=== PATIENT | female | born 1955 | race Caucasian/White ===

== ENCOUNTER → 2019-08-27 08:12 | Outpatient (BNVA) | payer MEDICARE, SELFPAY | PROVIDERS: Visit Provider Nurse Practitioner Psychiatric/Mental Health | DX: F41.1 Generalized anxiety disorder (principal); F31.74 Bipolar disorder, in full remission, most recent episode manic; F17.210 Nicotine dependence, cigarettes, uncomplicated | CPT/HCPCS: 99213 ==

== ENCOUNTER → 2020-01-29 08:36 | Outpatient (BNVA) | payer MEDICARE, SELFPAY | PROVIDERS: Visit Provider Nurse Practitioner Psychiatric/Mental Health | DX: F41.1 Generalized anxiety disorder (principal); F31.74 Bipolar disorder, in full remission, most recent episode manic; F17.210 Nicotine dependence, cigarettes, uncomplicated | CPT/HCPCS: 99213 ==

== ENCOUNTER → 2020-07-23 08:03 | Outpatient (BNVA) | payer MEDICARE, SELFPAY | PROVIDERS: Visit Provider Nurse Practitioner Psychiatric/Mental Health | DX: Z79.899 Other long term (current) drug therapy (principal); F41.1 Generalized anxiety disorder; F31.74 Bipolar disorder, in full remission, most recent episode manic; F17.210 Nicotine dependence, cigarettes, uncomplicated | CPT/HCPCS: 99214 ==

== ENCOUNTER 2020-12-18 08:44 | Outpatient (CLI) | payer MEDICARE, SELFPAY ==
[2020-12-18 09:36] LABS: Chol HDL Ratio 3.39 mg/dL (0.0-4.40); Cholesterol 122 mg/dL (0-200); HDL Cholesterol 36 mg/dL (60-100); LDL Cholesterol Calculated 56 mg/dL (50-129); LDL HDL Ratio 1.56 RATIO (0.00-3.22); Triglycerides 152 mg/dL (0-150)
[2020-12-18 09:45] LABS: Estmated Average Glucose 117; Hemoglobin A1C 5.7 % (4.0-6.0)
[2020-12-18 10:01] LABS: Valproic Acid Level 39.8 ug/mL (50-100)
== END 2020-12-18 08:45 | disposition home or self-care (01) ==
LOC: LAB 08:52
PROVIDERS: Visit Provider Nurse Practitioner Psychiatric/Mental Health
DX: Z79.899 Other long term (current) drug therapy (principal)
CPT/HCPCS: 36415; 80061; 80164; 83036

== ENCOUNTER → 2021-01-07 07:18 | Outpatient (BNVA) | payer MEDICARE, SELFPAY | PROVIDERS: Visit Provider Nurse Practitioner Psychiatric/Mental Health | DX: F41.1 Generalized anxiety disorder (principal); F31.74 Bipolar disorder, in full remission, most recent episode manic; F17.210 Nicotine dependence, cigarettes, uncomplicated; Z79.899 Other long term (current) drug therapy | CPT/HCPCS: 99214 ==

== ENCOUNTER 2021-03-31 14:10 | Emergency (ER) | payer MEDICARE, SELFPAY ==
[2021-03-31 14:27] VITALS: BP 162/96; PULSE 64; RESP 18; TEMP 36.4; O2SAT 96; BMI 31.8
[2021-03-31 15:15] VITALS: BP 163/83; PULSE 66; RESP 17; O2SAT 95
--- NOTE | 2021-03-31 15:26 | ED_ITS ---
HPI - General Adult General: Chief complaint: General Medical Stated complaint: HTN,DIZZY,SPINNING,H/A,EAR PAIN,VISION PROBLEM Time Seen by Provider: 03/31/21 14:47 History of Present Illness: HPI narrative: 65-year-old female presents emergency room lightheadedness and dizziness had a syncopal episode on March 28. No chest pain or shortness of breath. Is awake and alert. Denies any chest pain or shortness of breath. She does notice dizziness. She contributed by turning her head particularly to the right. Especially if she sits up and turns her head to the right. She gets a spinning vertiginous-like symptoms that is relieved by laying down and holding still. Onset (ago): day(s) Location: head Severity: mild Relieving factors: none Exacerbating factors: none Associated symptoms: Deny chest pain, confusion, cough, diaphoresis, decreased appetite, dyspnea, fevers/chills, headache(s), malaise, nausea, rash, palpitations, seizures, short of breath, syncope, vomiting or weakness Treatments prior to arrival: none Review of Systems Const: Denies: malaise or diaphoresis ENMT: Denies: throat pain, ear or mastoid pain, nasal discharge or nasal congestion Card: Denies: chest pain, palpitations or syncope Resp: Denies: dyspnea GI: Denies: nausea or vomiting : Denies: flank pain, difficulty voiding, dysuria, urinary frequency or urinary urgency Skin/Breast: Denies: rash Neuro: Denies: headache(s) or confusion [facility] ED PFSH: Medical History Bipolar 1 disorder, manic, full remission Generalized anxiety disorder Nicotine dependence, cigarettes, uncomplicated Physical Exam Const: COMMON NORMALS: no acute distress GENERAL APPEARANCE: cooperative and comfortable ORIENTATION/CONSCIOUSNESS: Yes awake, Yes oriented to person, Yes oriented to place and Yes oriented to time HENMT: COMMON NORMALS: normocephalic, atraumatic and hearing grossly normal bilaterally HEAD & SCALP: normocephalic and atraumatic Neck/C-Spine: COMMON NORMALS: no JVD Resp: COMMON NORMALS: normal respiratory effort, No retractions, No use of accessory muscles and clear to auscultation bilaterally AUSCULTATION: clear to auscultation bilaterally Cardio: COMMON NORMALS: no JVD, regular rate, regular rhythm and No murmurs present (Cardio) RATE: regular rate RHYTHM: regular rhythm GI: COMMON NORMALS: Soft to palpation and No hepatosplenomegaly present AUSCULTATION: Yes normoactive bowel sounds PALPATION: Yes Soft to palpation, No Tenderness to palpation present (GI), No Guarding due to palpation present (GI) and Yes No hepatosplenomegaly present Extremity: COMMON NORMALS: normal to inspection, capillary refill normal, no clubbing, cyanosis or edema, no calf tenderness and no pedal edema Neuro: SENSORIUM/ORIENTATION: Yes oriented to person, Yes oriented to place and Yes oriented to time Skin: COMMON NORMALS: no rashes or lesions noted GENERAL SKIN EXAM: no rashes or lesions noted Course Vital Signs: Vital signs: Vital Signs Temperature 97.6 F 03/31/21 14:27 Pulse Rate 66 03/31/21 16:00 Respiratory Rate 18 03/31/21 16:00 Blood Pressure 161/87 03/31/21 16:00 Pulse Oximetry 95 03/31/21 16:00 MDM - General Adult MDM Narrative: Medical decision making narrative: Reviewed labs with the patientShe has no head trauma point. No focal neurologic deficits noted. At this point head CT is probably not been to be particularly helpful. We will go ahead and treat her symptoms if this persists follow-up with her primary care doctor for worsens or changes in any way return. Lab Data: Labs: Lab Results 03/31/21 03/31/21 15:14 15:14 WBC 8.6 10^3/uL 10^3/ uL (4.0-10.0) RBC 4.31 10^6/uL 10^6 /uL (4.1-5.3) Hgb 13.1 g/dL g/dL (11.5-15.3) Hct 39.4 % % (37.0-47.0) MCV 91.4 fl fl (81-99) MCH 30.4 pg pg (28.0-34.0) MCHC 33.2 g/dL g/dL (30.0-36.0) RDW 13.5 % % (12.1-15.1) Plt Count 323 10^3/cmm 10^3 /cmm (130-400) MPV 10.0 fL fL (7.4-10.4) Neut % (Auto) 52.9 % % Lymph % (Auto) 38.6 % % [place] % (Auto) 5.4 % % Eos % (Auto) 1.9 % % Baso % (Auto) 0.9 % % Neut # (Auto) 4.54 10^3/uL 10^3 /uL (1.8-7.7) Lymph # (Auto) 3.3 10^3/uL 10^3/ uL (0.8-4.8) [place] # (Auto) 0.5 10^3/uL 10^3/ uL (0.2-0.9) Eos # (Auto) 0.2 10^3/uL 10^3/ uL (0.0-0.8) Baso # (Auto) 0.1 10^3/uL 10^3/ uL (0.0-0.1) Nucleated RBC % (a uto) 0 % % Nucleated RBCs # 0.0 /100WBC /100W BC Sodium 139 mmol/L mmol/L (136-145) Potassium 3.0 mmol/L L mmol /L (3.5-5.1) Chloride 100 mmol/L mmol/L (98-107) Carbon Dioxide 29 mmol/L mmol/L (22-29) Anion Gap 13.0 (5-19) BUN 10 mg/dL mg/dL (8-23) Creatinine 0.3 mg/dL L mg/dL (0.5-0.9) GFR Calculation 224.0 mL/min H mL /min (90-130) Glucose 96 mg/dL mg/dL (65-115) Calculated Osmolal ity 287 mOsm/kg mOsm/ kg (285-295) Calcium 8.9 mg/dL mg/dL (8.5-10.5) Total Bilirubin 0.2 mg/dL mg/dL (0.15-1.2) AST 12 U/L U/L (0-32) ALT 17 U/L U/L (0-33) Alkaline Phosphata se 78 IU/L IU/L (35-105) Total Protein 5.9 g/dL L g/dL (6.6-8.7) Albumin 3.7 g/dL g/dL (3.5-5.2) Globulin 2.2 g/dL g/dL (1.3-4.6) Discharge Plan Discharge Patient Disposition: Home Clinical Impression: Benign paroxysmal positional vertigo Condition: Stable Prescriptions: New meclizine 25 mg tablet 25 mg PO QID PRN (Reason: dizziness) Qty: 20 RF: 0 No Action clonazepam [Klonopin] 1 mg tablet 1 mg PO BID Qty: 60 RF: 5 divalproex [Depakote] 500 mg tablet,delayed release (DR/EC) 500 mg PO BID Qty: 180 RF: 2 sertraline [Zoloft] 25 mg tablet 25 mg PO BID Qty: 180 RF: 2 folic acid 1 mg tablet 1 mg PO BEDTIME RF: 0 methotrexate sodium 2.5 mg tablet 2.5 mg PO .ON MON,WED,FRI RF: 0 atorvastatin 20 mg tablet 20 mg PO QPM RF: 0 Flexeril 10 mg Tablet 10 mg PO TID PRN (Reason: Muscle Spasm) RF: 0 enalapril-hydrochlorothiazide 10-25 mg Tablet 1 tab PO QAM RF: 0 metoprolol tartrate 50 mg Tablet 50 mg PO BID RF: 0 ibuprofen 200 mg Tablet 600 mg PO Q4H PRN (Reason: Pain) RF: 0 albuterol sulfate 90 mcg/actuation Hfa Aerosol Inhaler 2 puff INHALATION Q4H PRN (Reason: Shortness Of Breath) RF: 0 Risperdal 0.5 mg tablet 0.5 mg PO BEDTIME RF: 0 Discharge Orders: Discharge ED (Routine); Ordered 03/31/21 Ordered By: Pieter Frank Referrals: Shae Liu FNP [Primary Care Provider] - Discharge Diet: Usual diet Discharge Activity: Increase activity as tolerated Patient Instructions: Opioid Safety Coding Level of Care Code ED Property Maintenance Technician for Chg Fwd Exam Comprehensive
--- NOTE | 2021-03-31 15:29 | ECG_ITS ---
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 Measurements Intervals [place] Rate: 71 P: 79 OR: 155 QRS: 18 QRSD: 89 T: 70 QT: 416 QTc: 453 Interpretive Statements SINUS RHYTHM Compared to ECG 03/01/2016 00:50:48 No significant changes Electronically Signed On 03-31-2021 21:56:54 CDT by Cele Muller M.D. [id number]
[2021-03-31 15:36] LABS: Basophils # 0.1 10^3/uL (0.0-0.1); Basophils % 0.9 %; Eosinophils # 0.2 10^3/uL (0.0-0.8); Eosinophils % 1.9 %; Hematocrit 39.4 % (37.0-47.0); Hemoglobin 13.1 g/dL (11.5-15.3); Lymphocytes # 3.3 10^3/uL (0.8-4.8); Lymphocytes % 38.6 %; Mean Corpuscular HGB Conc 33.2 g/dL (30.0-36.0); Mean Corpuscular Hemoglobin 30.4 pg (28.0-34.0); Mean Corpuscular Volume 91.4 fl (81-99); Monocytes # 0.5 10^3/uL (0.2-0.9); Monocytes % 5.4 %; Neutrophils # 4.54 10^3/uL (1.8-7.7); Neutrophils % 52.9 %; Nucleated Red Blood Cells % 0 %; Platelet Count 323 10^3/cmm (130-400); Red Blood Count 4.31 10^6/uL (4.1-5.3); Red Cell Distribution Width 13.5 % (12.1-15.1); White Blood Count 8.6 10^3/uL (4.0-10.0)
[2021-03-31 15:47] VITALS: BP 154/91; BP 156/92; BP 161/88; PULSE 61; PULSE 71; PULSE 75
[2021-03-31 16:00] VITALS: BP 161/87; PULSE 66; RESP 18; O2SAT 95
[2021-03-31 16:00] LABS: Alanine Aminotransferase 17 U/L (0-33); Albumin Level 3.7 g/dL (3.5-5.2); Alkaline Phosphatase 78 IU/L (35-105); Aspartate Amino Transferase 12 U/L (0-32); Blood Urea Nitrogen 10 mg/dL (8-23); Calcium 8.9 mg/dL (8.5-10.5); Carbon Dioxide 29 mmol/L (22-29); Chloride 100 mmol/L (98-107); Globulin 2.2 g/dL (1.3-4.6); Glucose 96 mg/dL (65-115); Osmolality Calculated 287 mOsm/kg (285-295); Sodium 139 mmol/L (136-145); Total Bilirubin 0.2 mg/dL (0.15-1.2); Total Protein 5.9 g/dL (6.6-8.7)
== END 2021-03-31 16:35 | disposition home or self-care (01) ==
PROVIDERS: Emergency Provider Family Medicine; PCP Nurse Practitioner Family
DX: H81.10 Benign paroxysmal vertigo, unspecified ear (principal)
CPT/HCPCS: 80053; 85025; 93005; 99283

== ENCOUNTER 2021-05-25 14:11 | Outpatient (CLI) | payer MEDICARE, SELFPAY ==
--- NOTE | 2021-05-25 14:27 | MM_ITS ---
WS: [id number] BILATERAL DIGITAL SCREENING MAMMOGRAPHY WITH CAD CLINICAL INFORMATION: SCREEN HISTORY: Screening mammogram. No current complaints. COMPARISON: TECHNIQUE: Bilateral CC and MLO views. FINDINGS: Scattered fibroglandular densities bilaterally. No suspicious focal mass, asymmetry, calcifications, or architectural distortion. No evidence of malignancy. Lucent centered calcification right breast. MM/[place] [id number] IMPRESSION: BI-RADS: 2-Benign FOLLOW UP: 1 Year Follow-up Recommend return to annual screening mammography.
--- NOTE | 2021-05-25 14:54 | XR_ITS ---
WS: [id number] Bone mineral density performed on a [employer], 05/25/2021. Clinical data: POST MENOPAUSAL COMPARISON STUDY: None. Findings: The first 4 lumbar vertebral bodies demonstrated the bone mineral density of 1.538 g/cm2 for a young adult T score of 3.0. Measurement of the left hip reveals a bone mineral density of 1.080 g/cm2 with a young adult T score of 0.6. Measurement of the right hip reveals the bone mineral density of 1.086 g/cm2 for young adult T score of 0.6. XR/XR DEXA axial skeleton* [id number] Impression: Normal bone mineral density of the lumbar spine and both hips.
== END 2021-05-25 14:12 | disposition home or self-care (01) ==
LOC: RADSHAW 14:15
PROVIDERS: PCP Nurse Practitioner Family; Visit Provider Nurse Practitioner Family
DX: Z12.31 Encounter for screening mammogram for malignant neoplasm of breast (principal); Z78.0 Asymptomatic menopausal state
CPT/HCPCS: 77067; 77080

== ENCOUNTER → 2021-07-08 13:15 | Outpatient (BNVA) | payer MEDICARE, SELFPAY | PROVIDERS: PCP Nurse Practitioner Family; Referring Provider Nurse Practitioner Family; Visit Provider Specialist | DX: M17.11 Unilateral primary osteoarthritis, right knee (principal); M25.561 Pain in right knee | CPT/HCPCS: 73560; 73565 ==

== ENCOUNTER → 2021-07-20 07:51 | Outpatient (BNVA) | payer MEDICARE, SELFPAY | PROVIDERS: PCP Nurse Practitioner Family; Visit Provider Nurse Practitioner Psychiatric/Mental Health | DX: F41.1 Generalized anxiety disorder (principal); F31.74 Bipolar disorder, in full remission, most recent episode manic; F17.210 Nicotine dependence, cigarettes, uncomplicated | CPT/HCPCS: 99214 ==

== ENCOUNTER 2021-07-27 13:04 | Outpatient (CLI) | payer MEDICARE, SELFPAY ==
--- NOTE | 2021-07-27 13:20 | CT_ITS ---
WS: [id number] CT HEAD NONCONTRAST HISTORY: HEADACHE TECHNIQUE: Contiguous axial imaging performed through the brain in 2.5 mm imaging. Bone and soft tiss ue windows. Sagittal and coronal reformats reviewed. All CT scans at [facility] use at least one of these dose optimization techniques: automated exposure control; mA and/or kV adjustment per pa tient size (includes targeted exams where dose is matched to clinical indication); or iterative recon struction. DLP: 1080.98 mGy.cm COMPARISON: None available. No acute intracranial hemorrhage, midline shift or mass effect. Mild atrophy and mild chronic microvascular ischemic changes. No prior infarct. There is also mild ce rebellar atrophy. Ventricles: Normal size with no hydrocephalus. No inferior displacement of cerebellar tonsils. Paranasal sinuses: As visualized are clear. Mastoid air cells: Well pneumatized. Calvarium and scalp: Skull is intact with no soft tissue edema or swelling. CT/CT head wo con* [id number] IMPRESSION: 1. No acute intracranial hemorrhage or edema. 2. Mild cerebral and cerebellar atrophy and chronic ischemic disease.
== END 2021-07-27 13:05 | disposition home or self-care (01) ==
LOC: RAD 13:07
PROVIDERS: PCP Nurse Practitioner Family; Visit Provider Nurse Practitioner Family
DX: R51.9 Headache, unspecified (principal); I67.82 Cerebral ischemia; G31.9 Degenerative disease of nervous system, unspecified
CPT/HCPCS: 70450

== ENCOUNTER 2021-08-21 12:24 | Outpatient (CLI) | payer MEDICARE, SELFPAY ==
--- NOTE | 2021-08-21 13:00 | MR_ITS ---
WS: [id number] MRI RIGHT KNEE HISTORY: M25.569 - Pain in unspecified knee, pain near patella. COMPARISON: 07/08/2021 Anterior cruciate ligament: There is a split -like pattern of the ACL with a 6.4 mm calcific deposit in the central portion of the ACL. The anterior fibers are appear intact but the posterior fibers may not be completely intact as there is a flattened orientation of the fibers. Posterior cruciate ligament: Intact. Medial collateral ligament: Small amount of fluid adjacent to the MCL but no tear. Posterior lateral corner structures: Intact. Medial menisci: Intact. Normal signal, size and shape. Lateral meniscus: Intact. Normal signal, size and shape. Extensor mechanism: Distal quadriceps tendon and patellar tendons are intact. Fluid and soft tissue: Small suprapatellar effusion. There is diffuse mild soft tissue edema around t he knee. There is a very tiny amount of fluid in the expected location of Moreno's cyst. There is an a dditional bursal collection containing loose bodies associated with the fibular head. This collection measures 2.5 x 1.2 cm and is situated between the popliteus and soleus muscles. Osseous and articular structures: Patellofemoral compartment: Mild to moderate narrowing of the lateral patellofemoral joint space with loss of cartilage involving both the medial and lateral facet. No fracture or marrow edema. Patellar retinaculum intact. Medial compartment: Mild narrowing of the medial compartment with loss of cartilage and small margina l osteophytes. Lateral compartment: Mild narrowing of the lateral compartment with loss of cartilage and marginal os teophytes. There is a small amount of edema along the lateral tibial plateau. There is also small den unt of subchondral edema involving a superficial portion of the lateral femoral condyle. There are small loose bodies posterior to the PCL but there is also a small cyst or ganglion associat ed with the posterior PCL. MR/MR knee RT wo con* [id number] IMPRESSION: 1. Tricompartment mild to moderate internal derangement with loss of cartilage and joint space and osteophyte formation. 2. Abnormal ACL. Embedded within the central portion of the ACL but it appears to be a calcific density causing splitting of the ligament. The posterior fibe rs may no longer be intact. 3. Bursal distention containing multiple loose bodies associated with the femo ral head. This collection is between the popliteus muscle and the soleus. 4. Mild diffuse soft tissue edema small joint effusion. 5. Multiple small loose bodies posterior to the ACL with an adjacent small flu id collection or ganglion.
== END 2021-08-21 12:25 | disposition home or self-care (01) ==
LOC: RAD 12:28
PROVIDERS: PCP Nurse Practitioner Family; Visit Provider Specialist
DX: R60.0 Localized edema (principal); M25.461 Effusion, right knee
CPT/HCPCS: 73721

== ENCOUNTER → 2021-10-13 12:27 | Outpatient (BNVA) | payer MEDICARE, SELFPAY | PROVIDERS: PCP Nurse Practitioner Family; Visit Provider Nurse Practitioner Psychiatric/Mental Health | DX: F41.1 Generalized anxiety disorder (principal); F31.74 Bipolar disorder, in full remission, most recent episode manic; F17.210 Nicotine dependence, cigarettes, uncomplicated; Z79.899 Other long term (current) drug therapy | CPT/HCPCS: 99214 ==

== ENCOUNTER → 2021-10-19 14:46 | Outpatient (BNVA) | payer MEDICARE, SELFPAY | PROVIDERS: PCP Nurse Practitioner Family; Visit Provider Specialist | DX: M17.11 Unilateral primary osteoarthritis, right knee (principal) | CPT/HCPCS: 99213 ==

== ENCOUNTER → 2022-05-05 12:39 | Outpatient (BNVA) | payer MEDICARE, SELFPAY | PROVIDERS: PCP Nurse Practitioner Family; Visit Provider Internal Medicine | DX: M25.9 Joint disorder, unspecified (principal); M79.643 Pain in unspecified hand; Z11.59 Encounter for screening for other viral diseases; Z11.1 Encounter for screening for respiratory tuberculosis; M45.0 Ankylosing spondylitis of multiple sites in spine | CPT/HCPCS: 72040; 73030; 73120; 73620; 80053; 85025; 85651; 86140; 86480; 86704; 86803; 86812; 87340; 99204 ==

== ENCOUNTER 2022-05-18 14:06 | Outpatient (CLI) | payer MEDICARE, SELFPAY ==
--- NOTE | 2022-05-18 14:18 | MR_ITS ---
WS: [email or web address] MRI LEFT SHOULDER NONCONTRAST TECHNIQUE: Sagittal T2, coronal T1, T2 and proton density imaging. Axial gradient PDE imaging. CLINICAL INFORMATION: PAIN OF L SHOULDER REGION COMPARISON: None. FINDINGS: Moderate degenerative arthritis AC joint with mild downsloping acromion. Subacromial spurring. Small amount of subacromial/subdeltoid fluid. Mild edema at the AC joint. Impingement on the distal suprasp inatus. Mild narrowing of the subacromial space. Mild chronic thinning of the supraspinatus tendon. Tendinopathy in the distal supraspinatus. Tiny int rasubstance bursal surface tear just distal to the acromion. No full-thickness tears. Normal infraspinatus. Normal teres minor. Normal subscapularis. Normal biceps tendon in the bicipital groove. Normal glenoid labrum. Normal biceps labral anchor. MR/MR shoulder LT wo con* [id number] IMPRESSION: 1. Moderate degenerative arthritis at the AC joint with mild downsloping of th e acromion. Impingement on the distal supraspinatus. Small subcoracoid and subd eltoid effusion. 2. Mild chronic thinning of the distal supraspinatus with tendinopathy and sma ll bursal surface tear. No full-thickness tears. 3. Normal infraspinatus. Normal teres minor. Normal subscapularis. 4. Normal biceps tendon in the bicipital groove. 5. Normal biceps labral anchor.
== END 2022-05-18 14:07 | disposition home or self-care (01) ==
LOC: RAD 14:07
PROVIDERS: PCP Nurse Practitioner Family; Visit Provider Nurse Practitioner Family
DX: M25.512 Pain in left shoulder (principal); M19.012 Primary osteoarthritis, left shoulder
CPT/HCPCS: 73221

== ENCOUNTER → 2022-06-14 11:06 | Outpatient (BNVA) | payer MEDICARE, SELFPAY | PROVIDERS: PCP Nurse Practitioner Family; Visit Provider Specialist | DX: M19.012 Primary osteoarthritis, left shoulder (principal); M25.812 Other specified joint disorders, left shoulder; S49.92XA Unspecified injury of left shoulder and upper arm, initial encounter; W19.XXXA Unspecified fall, initial encounter | CPT/HCPCS: 20610; 73030; 99214 ==

== ENCOUNTER 2022-06-16 09:05 | Outpatient (CLI) | payer MEDICARE, SELFPAY ==
--- NOTE | 2022-06-16 09:30 | MR_ITS ---
WS: [id number] MRI CERVICAL SPINE NONCONTRAST TECHNIQUE: Sagittal T1, T2 and STIR imaging. Axial T2, gradient, and fiesta imaging. CLINICAL INFORMATION: NECK PAIN COMPARISON: MRI 2 018 FINDINGS: Mild cervical curve. Prior postoperative changes ACDF C5-C6. No high-grade central canal stenosis. Co rd signal is normal. Mild disc bulging with a tiny central protrusion C6-C7. Tiny disc protrusions in the upper thoracic spine at T1-T2, T2-T3, and T4-T5 C2-C3: Mild facet arthropathy. Mild RIGHT and no significant LEFT foraminal narrowing. Spinal canal i s patent. C3-C4: Mild disc bulging. Moderate facet arthropathy worse in the RIGHT. Mild to moderate RIGHT and n o significant LEFT foraminal narrowing. Spinal canal is patent. C4-C5: No significant disc bulging. Moderate facet arthropathy. Mild to moderate RIGHT and no signifi cant LEFT foraminal narrowing. Spinal canal is patent. C5-C6: Postoperative changes ACDF. Moderate bilateral bony foraminal narrowing RIGHT greater than LEF T. Spinal canal is patent. Moderate facet arthropathy. Spinal canal is patent. C6-C7: Shallow central disc protrusion. Slight effacement of ventral thecal sac. Moderate LEFT and no significant RIGHT foraminal narrowing. Mild facet arthropathy. Spinal canal is patent. C7-T1: No significant disc bulging. Spinal canal and foramen are patent. Visualized brain stem structures: Normal. Prevertebral soft tissues: Normal. MR/MR cervical spin wo con* [id number] IMPRESSION: 1. Mild cervical curve. No high-grade central canal narrowing. Cord signal is normal. 2. Prior postoperative changes ACDF C5-C6 appears stable from previous. 3. Shallow central protrusion C6-C7 with slight effacement of ventral thecal s ac. 4. Moderate bony foraminal narrowing RIGHT C3-C4, RIGHT C4-C5, bilateral C5-C6 and LEFT C6-C7. 5. Overall no significant changes compared to the prior MRI.
== END 2022-06-16 09:06 | disposition home or self-care (01) ==
LOC: RAD 09:11
PROVIDERS: PCP Nurse Practitioner Family; Visit Provider Nurse Practitioner Family
DX: M50.223 Other cervical disc displacement at C6-C7 level (principal)
CPT/HCPCS: 72141

== ENCOUNTER 2022-07-19 15:35 | Emergency (ER) | payer MEDICARE, SELFPAY ==
[2022-07-19] VITALS (7 sets, daily range): BP systolic 147–190; BP diastolic 65–103; PULSE 67–77; RESP 16–22; TEMP 36.6; O2SAT 94–97
--- NOTE | 2022-07-19 16:18 | PC.NURSE ---
WHILE IN LOBBY WITH PT. PT IS SITTING IN LOBBY IN NAD.
--- NOTE | 2022-07-19 16:42 | XRR_ITS ---
PROCEDURE INFORMATION: Exam: XR Chest Exam date and time: 07/19/2022 5:00 PM Age: 67 years old Clinical indication: Shortness of breath; Additional info: Chest pain TECHNIQUE: Imaging protocol: Radiologic exam of the chest. Views: 1 view. COMPARISON: CR XR chest 1V [id number] 02/29/2016 9:34 PM FINDINGS: Lungs: Lungs are clear bilaterally. Pleural spaces: No pleural effusion. No pneumothorax. Heart/Mediastinum: The cardiac silhouette and mediastinal contours are unremarkable. Bones/joints: Postsurgical changes consistent with previous spine fusion C6-C7. Degenerative changes in the spine and shoulders. XR/XR chest 1V portable [id number] IMPRESSION: 1. No acute cardiopulmonary process. 2. Incidental/nonacute findings are listed in the report.
[2022-07-19] MEDS: aspirin 81 mg Chew Tablet 324 MG PO (16:51)
--- NOTE | 2022-07-19 17:06 | ECG_ITS ---
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 Measurements Intervals [place] Rate: 60 P: 76 SD: 150 QRS: 21 QRSD: 88 T: 30 QT: 427 QTc: 429 Interpretive Statements SINUS RHYTHM MODERATE ST DEPRESSION [0.05+ mV ST DEPRESSION] Compared to ECG 03/31/2021 15:05:13 ST (T wave) deviation now present Electronically Signed On 07-19-2022 19:11:15 INSIGHT DIRECTOR by Matilde Moore M.D. [id number]
--- NOTE | 2022-07-19 17:22 | ED_ITS ---
Documented by User: Pieter Frank DO 07/21/22 14:13 HPI - Chest Pain General: Chief Complaint: Chest Pain Stated Complaint: high bp/chest/abd pain Time Seen by Provider: 07/19/22 16:28 Source: patient Mode of arrival: ambulatory History of Present Illness: . 67-year-old female presents emergency room with complaints of chest pain and elevated blood pressure. She is also reporting she had some abdominal and chest pain earlier that is resolved. She just generally does not feel well. Blood pressure moderately elevated on arrival here she denies any fever sweats chills or productive cough. No weakness in extremities no loss of vision difficulty swallowing noted dizziness nausea or vomiting. MD complaint: chest pain Onset (ago): hour(s) Timing of current episode: episodic Onset: during rest Quality: tightness Relieving factors: nothing Exacerbating factors: nothing Associated symptoms: Reports abdominal pain; Deny diaphoresis, dyspnea, fever(s), leg edema, nausea, palpitations, sense of impending doom, syncope or vomiting Review of Systems Const: Denies: fever(s), chills, fatigue, malaise or diaphoresis ENMT: Denies: throat pain, ear or mastoid pain, nasal discharge or nasal congestion Card: Reports: chest pain; Denies: palpitations or syncope Resp: Denies: dyspnea GI: Reports: abdominal pain; Denies: nausea or vomiting : Denies: flank pain, difficulty voiding, dysuria, urinary frequency or urinary urgency Skin/Breast: Denies: rash or pruritus PFSH ED PFSH: Medical History Bipolar 1 disorder, manic, full remission Generalized anxiety disorder Hand pain Nicotine dependence, cigarettes, uncomplicated Social History Smoking and tobacco status: current every day smoker cigarettes Packs smoked p er day: 0.5 Quit status (tobacco): has tried quititng Physical Exam Const: COMMON NORMALS: no acute distress GENERAL APPEARANCE: cooperative and comfortable ORIENTATION/CONSCIOUSNESS: Yes awake, Yes oriented to person, Yes oriented to place and Yes oriented to time HENMT: COMMON NORMALS: normocephalic, atraumatic and hearing grossly normal bilaterally HEAD & SCALP: normocephalic and atraumatic Resp: COMMON NORMALS: normal respiratory effort, No retractions, No use of accessory muscles and clear to auscultation bilaterally AUSCULTATION: clear to auscultation bilaterally Cardio: COMMON NORMALS: regular rate, regular rhythm and No murmurs present (Cardio) RATE: regular rate RHYTHM: regular rhythm GI: COMMON NORMALS: Soft to palpation and No hepatosplenomegaly present AUSCULTATION: Yes normoactive bowel sounds PALPATION: Yes Soft to palpation, No Tenderness to palpation present (GI), No Guarding due to palpation present (GI) and Yes No hepatosplenomegaly present Extremity: COMMON NORMALS: normal to inspection, capillary refill normal, no clubbing, cyanosis or edema, no calf tenderness and no pedal edema Neuro: SENSORIUM/ORIENTATION: Yes oriented to person, Yes oriented to place and Yes oriented to time Skin: COMMON NORMALS: no rashes or lesions noted GENERAL SKIN EXAM: no rashes or lesions noted Course Vital Signs: Vital signs: Vital Signs Temperature 97.8 F 07/19/22 15:38 Pulse Rate 73 07/19/22 20:16 Respiratory Rate 22 H 07/19/22 20:16 Blood Pressure 161/103 07/19/22 20:16 Pulse Oximetry 96 07/19/22 20:16 Oxygen Delivery Me thod 07/19/22 18:39 MDM - Chest Pain Medical Decision Making Care signed out to Dr. Keating at change of shift. See final notes for diagnosis and disposition. Patient presents for chest pains atypical in nature initial repeat troponins here normal we will Achilles her enalapril HCTZ due to her high blood pressure she is to follow-up with her PCP this week though return if worsening she understands agrees to plan. Lab Data 07/19/22 17:02 07/19/22 17:02 Radiology Impressions Chest X-Ray 07/19/22 16:42 IMPRESSION: 1. No acute cardiopulmonary process. 2. Incidental/nonacute findings are listed in the report. Laboratory Results WBC 13.4 10^3/uL (4.0-10.0) H 07/19/22 17:02 RBC 4.54 10^6/uL (4.1-5.3) 07/19/22 17:02 Hgb 13.5 g/dL (11.5-15.3) 07/19/22 17:02 Hct 40.4 % (37.0-47.0) 07/19/22 17:02 MCV 89.0 fl (81-99) 07/19/22 17:02 MCH 29.7 pg (28.0-34.0) 07/19/22 17:02 MCHC 33.4 g/dL (30.0-36.0) 07/19/22 17:02 RDW 13.7 % (12.1-15.1) 07/19/22 17:02 Plt Count 465 10^3/cmm (130-400) H 07/19/22 17:02 MPV 9.8 fL (7.4-10.4) 07/19/22 17:02 Neut % (Auto) 77.5 % 07/19/22 17:02 Lymph % (Auto) 17.2 % 07/19/22 17:02 [place] % (Auto) 4.3 % 07/19/22 17:02 Eos % (Auto) 0.0 % 07/19/22 17:02 Baso % (Auto) 0.3 % 07/19/22 17:02 Neut # (Auto) 10.40 10^3/uL (1.8-7.7) H 07/19/22 17:02 Lymph # (Auto) 2.3 10^3/uL (0.8-4.8) 07/19/22 17:02 [place] # (Auto) 0.6 10^3/uL (0.2-0.9) 07/19/22 17:02 Eos # (Auto) 0.0 10^3/uL (0.0-0.8) 07/19/22 17:02 Baso # (Auto) 0.0 10^3/uL (0.0-0.1) 07/19/22 17:02 Nucleated RBC % (auto) 0 % 07/19/22 17:02 Nucleated RBCs # 0.0 /100WBC 07/19/22 17:02 Sodium 140 mmol/L (136-145) 07/19/22 17:02 Potassium 3.3 mmol/L (3.5-5.1) L 07/19/22 17:02 Chloride 99 mmol/L (98-107) 07/19/22 17:02 Carbon Dioxide 27 mmol/L (22-29) 07/19/22 17:02 Anion Gap 17.3 (5-19) 07/19/22 17:02 BUN 14 mg/dL (8-23) 07/19/22 17:02 Creatinine 0.7 mg/dL (0.5-0.9) 07/19/22 17:02 GFR Calculation 83.7 mL/min (90-130) L 07/19/22 17:02 Glucose 124 mg/dL (65-115) H 07/19/22 17:02 Calculated Osmolality 292 mOsm/kg (285-295) 07/19/22 17:02 Calcium 9.4 mg/dL (8.5-10.5) 07/19/22 17:02 Total Bilirubin 0.2 mg/dL (0.15-1.2) 07/19/22 17:02 AST 14 U/L (0-32) 07/19/22 17:02 ALT 20 U/L (0-33) 07/19/22 17:02 Alkaline Phosphatase 89 U/L (35-105) 07/19/22 17:02 Troponin T Baseline 6 ng/L (0-10) 07/19/22 17:02 Troponin T 120 Minute 6.00 ng/L (0-10) 07/19/22 19:11 Delta Troponin T 0 ABS# (0-10) 07/19/22 19:11 Total Protein 7.2 g/dL (6.6-8.7) 07/19/22 17:02 Albumin 3.9 g/dL (3.5-5.2) 07/19/22 17:02 Globulin 3.3 g/dL (1.3-4.6) 07/19/22 17:02 Discharge Plan Discharge Patient Disposition: Home Clinical Impression: Chest pain, Hypertension Condition: Stable Prescriptions: New enalapril-hydrochlorothiazide 10-25 mg tablet 1 tab PO BID Qty: 60 0RF Discontinued enalapril-hydrochlorothiazide 10-25 mg Tablet 1 tab PO QAM No Action folic acid 1 mg tablet 1 mg PO BEDTIME methotrexate sodium 2.5 mg tablet 2.5 mg PO .ON MON,WED,FRI atorvastatin 20 mg tablet 20 mg PO QPM divalproex [Depakote] 500 mg tablet,delayed release (DR/EC) 500 mg PO BID Qty: 180 2RF buspirone 10 mg tablet 10 mg PO TID Qty: 270 2RF Rx Instructions: Take one tablet three times per day sertraline [Zoloft] 25 mg tablet 25 mg PO BID Qty: 180 2RF Rx Instructions: Take one tablet in morning and 3 pm Risperdal 0.5 mg tablet 0.5 mg PO BEDTIME Qty: 90 2RF Rx Instructions: Take one tablet at bedtime clonazepam [Klonopin] 1 mg tablet 1 mg PO BID Qty: 60 3RF Rx Instructions: Take one tablet twice per day nicotine 21-14-7 mg/24 hr patch, TD daily, sequential 1 patch transdermal DAILY Qty: 56 0RF Rx Instructions: apply one patch in am, remove prior to bedtime diclofenac sodium [Voltaren Arthritis Pain] 1 % gel 4 g topical QID Qty: 100 0RF Rx Instructions: apply to single knee, ankle, foot; for foot includes sole/toes/top of foot Flexeril 10 mg Tablet 10 mg PO TID PRN (Reason: Muscle Spasm) metoprolol tartrate 50 mg Tablet 50 mg PO BID ibuprofen 200 mg Tablet 600 mg PO Q4H PRN (Reason: Pain) albuterol sulfate 90 mcg/actuation Hfa Aerosol Inhaler 2 puff INHALATION Q4H PRN (Reason: Shortness Of Breath) meclizine 25 mg tablet 25 mg PO QID PRN (Reason: dizziness) Qty: 20 0RF potassium chloride 20 mEq packet 20 meq PO BID Qty: 10 0RF Discharge Orders: Discharge ED (Routine); Ordered 07/19/22 Ordered By: Almas Keating Referrals: Shae Liu FNP [Primary Care Provider] - 1-3 days Discharge Diet: Advance as tolerated Discharge Activity: Resume usual activity Patient Instructions: Chest Pain (ED), Hypertension (ED) Coding Level of Care Code ED Hydraulic Governor Assembler for Chg Fwd Documented by User: Almas Keating MD 07/19/22 20:19 HPI - Chest Pain General: Chief Complaint: Chest Pain Stated Complaint: high bp/chest/abd pain Time Seen by Provider: 07/19/22 16:28 History of Present Illness: . [facility] ED PFSH: Medical History Bipolar 1 disorder, manic, full remission Generalized anxiety disorder Hand pain Nicotine dependence, cigarettes, uncomplicated Social History Smoking and tobacco status: current every day smoker cigarettes Packs smoked per day: 0.5 Quit status (tobacco): has tried quititng Course Vital Signs: Vital signs: Vital Signs Temperature 97.8 F 07/19/22 15:38 Pulse Rate 73 07/19/22 20:16 Respiratory Rate 22 H 07/19/22 20:16 Blood Pressure 161/103 07/19/22 20:16 Pulse Oximetry 96 07/19/22 20:16 Oxygen Delivery Me thod 07/19/22 18:39 MDM - Chest Pain Medical Decision Making Patient presents for chest pains atypical in nature initial repeat troponins here normal we will Achilles her enalapril HCTZ due to her high blood pressure she is to follow-up with her PCP this week though return if worsening she understands agrees to plan. Lab Data 07/19/22 17:02 07/19/22 17:02 Radiology Impressions Chest X-Ray 07/19/22 16:42 IMPRESSION: 1. No acute cardiopulmonary process. 2. Incidental/nonacute findings are listed in the report. Laboratory Results WBC 13.4 10^3/uL (4.0-10.0) H 07/19/22 17:02 RBC 4.54 10^6/uL (4.1-5.3) 07/19/22 17:02 Hgb 13.5 g/dL (11.5-15.3) 07/19/22 17:02 Hct 40.4 % (37.0-47.0) 07/19/22 17:02 MCV 89.0 fl (81-99) 07/19/22 17:02 MCH 29.7 pg (28.0-34.0) 07/19/22 17:02 MCHC 33.4 g/dL (30.0-36.0) 07/19/22 17:02 RDW 13.7 % (12.1-15.1) 07/19/22 17:02 Plt Count 465 10^3/cmm (130-400) H 07/19/22 17:02 MPV 9.8 fL (7.4-10.4) 07/19/22 17:02 Neut % (Auto) 77.5 % 07/19/22 17:02 Lymph % (Auto) 17.2 % 07/19/22 17:02 [place] % (Auto) 4.3 % 07/19/22 17:02 Eos % (Auto) 0.0 % 07/19/22 17:02 Baso % (Auto) 0.3 % 07/19/22 17:02 Neut # (Auto) 10.40 10^3/uL (1.8-7.7) H 07/19/22 17:02 Lymph # (Auto) 2.3 10^3/uL (0.8-4.8) 07/19/22 17:02 [place] # (Auto) 0.6 10^3/uL (0.2-0.9) 07/19/22 17:02 Eos # (Auto) 0.0 10^3/uL (0.0-0.8) 07/19/22 17:02 Baso # (Auto) 0.0 10^3/uL (0.0-0.1) 07/19/22 17:02 Nucleated RBC % (auto) 0 % 07/19/22 17:02 Nucleated RBCs # 0.0 /100WBC 07/19/22 17:02 Sodium 140 mmol/L (136-145) 07/19/22 17:02 Potassium 3.3 mmol/L (3.5-5.1) L 07/19/22 17:02 Chloride 99 mmol/L (98-107) 07/19/22 17:02 Carbon Dioxide 27 mmol/L (22-29) 07/19/22 17:02 Anion Gap 17.3 (5-19) 07/19/22 17:02 BUN 14 mg/dL (8-23) 07/19/22 17:02 Creatinine 0.7 mg/dL (0.5-0.9) 07/19/22 17:02 GFR Calculation 83.7 mL/min (90-130) L 07/19/22 17:02 Glucose 124 mg/dL (65-115) H 07/19/22 17:02 Calculated Osmolality 292 mOsm/kg (285-295) 07/19/22 17:02 Calcium 9.4 mg/dL (8.5-10.5) 07/19/22 17:02 Total Bilirubin 0.2 mg/dL (0.15-1.2) 07/19/22 17:02 AST 14 U/L (0-32) 07/19/22 17:02 ALT 20 U/L (0-33) 07/19/22 17:02 Alkaline Phosphatase 89 U/L (35-105) 07/19/22 17:02 Troponin T Baseline 6 ng/L (0-10) 07/19/22 17:02 Troponin T 120 Minute 6.00 ng/L (0-10) 07/19/22 19:11 Delta Troponin T 0 ABS# (0-10) 07/19/22 19:11 Total Protein 7.2 g/dL (6.6-8.7) 07/19/22 17:02 Albumin 3.9 g/dL (3.5-5.2) 07/19/22 17:02 Globulin 3.3 g/dL (1.3-4.6) 07/19/22 17:02 Discharge Plan Discharge Patient Disposition: Home Clinical Impression: Chest pain, Hypertension Condition: Stable Prescriptions: New enalapril-hydrochlorothiazide 10-25 mg tablet 1 tab PO BID Qty: 60 0RF Discontinued enalapril-hydrochlorothiazide 10-25 mg Tablet 1 tab PO QAM No Action folic acid 1 mg tablet 1 mg PO BEDTIME methotrexate sodium 2.5 mg tablet 2.5 mg PO .ON MON,WED,FRI atorvastatin 20 mg tablet 20 mg PO QPM divalproex [Depakote] 500 mg tablet,delayed release (DR/EC) 500 mg PO BID Qty: 180 2RF buspirone 10 mg tablet 10 mg PO TID Qty: 270 2RF Rx Instructions: Take one tablet three times per day sertraline [Zoloft] 25 mg tablet 25 mg PO BID Qty: 180 2RF Rx Instructions: Take one tablet in morning and 3 pm Risperdal 0.5 mg tablet 0.5 mg PO BEDTIME Qty: 90 2RF Rx Instructions: Take one tablet at bedtime clonazepam [Klonopin] 1 mg tablet 1 mg PO BID Qty: 60 3RF Rx Instructions: Take one tablet twice per day nicotine 21-14-7 mg/24 hr patch, TD daily, sequential 1 patch transdermal DAILY Qty: 56 0RF Rx Instructions: apply one patch in am, remove prior to bedtime diclofenac sodium [Voltaren Arthritis Pain] 1 % gel 4 g topical QID Qty: 100 0RF Rx Instructions: apply to single knee, ankle, foot; for foot includes sole/toes/top of foot Flexeril 10 mg Tablet 10 mg PO TID PRN (Reason: Muscle Spasm) metoprolol tartrate 50 mg Tablet 50 mg PO BID ibuprofen 200 mg Tablet 600 mg PO Q4H PRN (Reason: Pain) albuterol sulfate 90 mcg/actuation Hfa Aerosol Inhaler 2 puff INHALATION Q4H PRN (Reason: Shortness Of Breath) meclizine 25 mg tablet 25 mg PO QID PRN (Reason: dizziness) Qty: 20 0RF potassium chloride 20 mEq packet 20 meq PO BID Qty: 10 0RF Discharge Orders: Discharge ED (Routine); Ordered 07/19/22 Ordered By: Almas Keating Referrals: Shae Liu FNP [Primary Care Provider] - 1-3 days Discharge Diet: Advance as tolerated Discharge Activity: Resume usual activity Patient Instructions: Chest Pain (ED), Hypertension (ED) Coding Level of Care Code ED Hydraulic Governor Assembler for Neil Li
[2022-07-19 17:32] LABS: Basophils % 0.3 %; Hematocrit 40.4 % (37.0-47.0); Hemoglobin 13.5 g/dL (11.5-15.3); Lymphocytes # 2.3 10^3/uL (0.8-4.8); Lymphocytes % 17.2 %; Mean Corpuscular HGB Conc 33.4 g/dL (30.0-36.0); Mean Corpuscular Hemoglobin 29.7 pg (28.0-34.0); Mean Platelet Volume 9.8 fL (7.4-10.4); Monocytes # 0.6 10^3/uL (0.2-0.9); Monocytes % 4.3 %; Neutrophils % 77.5 %; Nucleated Red Blood Cells % 0 %; Platelet Count 465 10^3/cmm (130-400); Red Blood Count 4.54 10^6/uL (4.1-5.3); Red Cell Distribution Width 13.7 % (12.1-15.1); White Blood Count 13.4 10^3/uL (4.0-10.0)
[2022-07-19 17:57] LABS: Alanine Aminotransferase 20 U/L (0-33); Albumin Level 3.9 g/dL (3.5-5.2); Alkaline Phosphatase 89 U/L (35-105); Anion Gap 17.3 (5-19); Aspartate Amino Transferase 14 U/L (0-32); Blood Urea Nitrogen 14 mg/dL (8-23); Calcium 9.4 mg/dL (8.5-10.5); Carbon Dioxide 27 mmol/L (22-29); Chloride 99 mmol/L (98-107); Globulin 3.3 g/dL (1.3-4.6); Glomerular Filtration Rate 83.7 mL/min (90-130); Glucose 124 mg/dL (65-115); Osmolality Calculated 292 mOsm/kg (285-295); Potassium 3.3 mmol/L (3.5-5.1); Sodium 140 mmol/L (136-145); Total Bilirubin 0.2 mg/dL (0.15-1.2); Total Protein 7.2 g/dL (6.6-8.7)
[2022-07-19 18:01] LABS: Troponin(5th) Baseline 6 ng/L (0-10)
[2022-07-19] MEDS: amlodipine 10 mg Tablet PO (18:03)
[2022-07-19] MEDS: hyDRALAzine 20 mg/mL INJ 1 mL 10 MG IVP (18:04)
--- NOTE | 2022-07-19 18:42 | ECG_ITS ---
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 Measurements Intervals [place] Rate: 64 P: 70 CO: 149 QRS: -1 QRSD: 91 T: 51 QT: 298 QTc: 309 Interpretive Statements SINUS RHYTHM WITH SINUS ARRHYTHMIA NONSPECIFIC ST & T-WAVE ABNORMALITY Compared to ECG 07/19/2022 17:06:02 T-wave abnormality now present ST (T wave) deviation no longer present Electronically Signed On 07-19-2022 19:17:54 FACILITY MAINTENANCE WORKER by Matilde Moore M.D. [id number]
[2022-07-19 19:38] LABS: Troponin 5 2HR Delta 0 ABS# (0-10)
[2022-07-19] MEDS: diphenhydrAMINE 50 mg/mL SDV 1mL 25 MG IVP (19:47)
[2022-07-19] MEDS: metoclopramide 5 mg/mL SDV 2 mL IVP (19:47)
== END 2022-07-19 20:18 | disposition home or self-care (01) ==
PROVIDERS: Family Medicine; Emergency Provider Emergency Medicine; PCP Nurse Practitioner Family
DX: R07.9 Chest pain, unspecified (principal); I10 Essential (primary) hypertension; F17.210 Nicotine dependence, cigarettes, uncomplicated
CPT/HCPCS: 36415; 71045; 80053; 84484; 85025; 93005; 96374; 96375; 99285; J0360; J1200; J2765

== ENCOUNTER 2022-07-20 14:34 | Emergency (ER) | payer MEDICARE, SELFPAY ==
[2022-07-20] VITALS (8 sets, daily range): BP systolic 129–175; BP diastolic 81–120; PULSE 79–120; RESP 14–22; TEMP 36.7; O2SAT 96–98; BMI 32.4
--- NOTE | 2022-07-20 14:46 | ECG_ITS ---
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 Measurements Intervals [place] Rate: 117 P: 90 [place]: 145 QRS: 51 QRSD: 86 T: 78 QT: 370 QTc: 518 Interpretive Statements SINUS TACHYCARDIA POSSIBLE RIGHT ATRIAL ENLARGEMENT [0.25mV P-WAVE] MODERATE ST DEPRESSION [0.05+ mV ST DEPRESSION] Compared to ECG 07/19/2022 18:46:45 ST (T wave) deviation now present Sinus rhythm no longer present Sinus arrhythmia no longer present T-wave abnormality no longer present Electronically Signed On 07-20-2022 17:33:22 INSTRUCTIONAL SERVICES LIBRARIAN by Vickey Henderson M.D. [id number]
--- NOTE | 2022-07-20 17:19 | W.ED.CHESTPA ---
HPI - Chest Pain General: Chief Complaint: Chest Pain Stated Complaint: chest pain/nauseas Time Seen by Provider: 07/20/22 17:07 Source: patient Mode of arrival: ambulatory Limitations: no limitations History of Present Illness: This 67-year-old female presents to the ER for evaluation of palpitations and not feeling good . Patient was seen here yesterday with chest pain during which troponin was negative and she was subsequently discharged home. She notes that the chest pain is off and on. When she exerts herself she starts breathing fast. She went into see her primary care provider who advised her to come to the ER to be checked for clots . She has no fever or cough of concern. Associated symptoms: Reports palpitations Review of Systems Const: Denies: chills, body aches or change in appetite Card: Reports: chest pain (Intermittent), palpitations and lightheadedness : Denies: dysuria Musc: Denies: neck pain or back pain Neuro: Denies: headache(s) or weakness in extremities All/Imm: Denies: urticaria, tongue swelling or facial swelling PFSH ED PFSH: Medical History Bipolar 1 disorder, manic, full remission Generalized anxiety disorder Hand pain Nicotine dependence, cigarettes, uncomplicated Social History Smoking and tobacco status: current every day smoker cigarettes Packs smoked per day: 0.5 Quit status (tobacco): has tried quititng Physical Exam Const: COMMON NORMALS: no acute distress, patient oriented x3, no limitations and alert Chest: COMMONS NORMALS: normal inspection of the chest Resp: COMMON NORMALS: normal respiratory effort, No retractions, No use of accessory muscles and clear to auscultation bilaterally AUSCULTATION: clear to auscultation bilaterally Cardio: COMMON NORMALS: regular rate, regular rhythm and No murmurs present (Cardio) RATE: regular rate RHYTHM: regular rhythm GI: COMMON NORMALS: Normal to inspection, nondistended, normoactive bowel sounds present and non-tender : COMMON NORMALS: Yes no CVA tenderness BLADDER/KIDNEY EXAM: Yes no CVA tenderness Back/Pelvis: COMMON NORMALS: no CVA tenderness and no thoracic nor lumbar tenderness Extremity: GENERAL: Yes normal exam except as noted Neuro: COMMON NORMALS: patient oriented x3 and no focal motor deficits SENSORIUM/ORIENTATION: Yes alert Psych: COMMON NORMALS: mental status grossly normal and cooperative Course Vital Signs: Vital signs: Vital Signs Temperature 98.1 F 07/20/22 14:35 Pulse Rate 84 07/20/22 22:30 Respiratory Rate 18 07/20/22 22:30 Blood Pressure 129/81 07/20/22 22:30 Pulse Oximetry 96 07/20/22 22:30 Oxygen Delivery Me thod 07/20/22 17:33 MDM - Chest Pain Medical Decision Making Medical decision making: History as above. Patient remained pain-free throughout her stay in the ER. Potassium level is 2.8 but after administering potassium in the ER, recheck showed a potassium level of 4.6. Initial troponin was 39 and repeat troponin was 32 with a delta of -7. EKG reveals no acute ischemic changes. CT chest revealed a 3.2 cm possible mass in the kidney. Patient was made aware of this and advised to get a CT abdomen/pelvis with IV contrast through her primary care provider. Case management was asked to schedule an outpatient stress test for patient. There is no indication to admit her at this time. Reasons to return were discussed Lab Data 07/20/22 17:57 07/20/22 17:57 Radiology Impressions Chest CTA 07/20/22 17:30 IMPRESSION: 1. Negative for pulmonary embolus. 2. Patchy bilateral peripheral atelectasis versus minimal infiltrate. 3. Scattered prominent subcentimeter short axis mediastinal lymph nodes, nonspecific. 4. Cardiomegaly. 5. Mild distal esophageal wall thickening may reflect an esophagitis in the appropriate clinical setting. 6. Cholecystectomy. 7. Right kidney 3.2 cm equivocal solid mass seen, series 6, image 476, further evaluation with renal ultrasound or CT abdomen pelvis with intravenous contrast could further evaluate this nonemergently. Laboratory Results WBC 13.9 10^3/uL (4.0-10.0) H 07/20/22 17:57 RBC 4.92 10^6/uL (4.1-5.3) 07/20/22 17:57 Hgb 14.3 g/dL (11.5-15.3) 07/20/22 17:57 Hct 43.8 % (37.0-47.0) 07/20/22 17:57 MCV 89.0 fl (81-99) 07/20/22 17:57 MCH 29.1 pg (28.0-34.0) 07/20/22 17:57 MCHC 32.6 g/dL (30.0-36.0) 07/20/22 17:57 RDW 13.5 % (12.1-15.1) 07/20/22 17:57 Plt Count 462 10^3/cmm (130-400) H 07/20/22 17:57 MPV 10.1 fL (7.4-10.4) 07/20/22 17:57 Neut % (Auto) 52.5 % 07/20/22 17:57 Lymph % (Auto) 37.1 % 07/20/22 17:57 [place] % (Auto) 8.0 % 07/20/22 17:57 Eos % (Auto) 0.9 % 07/20/22 17:57 Baso % (Auto) 0.7 % 07/20/22 17:57 Neut # (Auto) 7.32 10^3/uL (1.8-7.7) 07/20/22 17:57 Lymph # (Auto) 5.2 10^3/uL (0.8-4.8) H 07/20/22 17:57 [place] # (Auto) 1.1 10^3/uL (0.2-0.9) H 07/20/22 17:57 Eos # (Auto) 0.1 10^3/uL (0.0-0.8) 07/20/22 17:57 Baso # (Auto) 0.1 10^3/uL (0.0-0.1) 07/20/22 17:57 Nucleated RBC % (auto) 0 % 07/20/22 17:57 Nucleated RBCs # 0.0 /100WBC 07/20/22 17:57 Sodium 138 mmol/L (136-145) 07/20/22 22:03 Potassium 4.6 mmol/L (3.5-5.1) 07/20/22 22:03 Chloride 100 mmol/L (98-107) 07/20/22 22:03 Carbon Dioxide 24 mmol/L (22-29) 07/20/22 22:03 Anion Gap 18.6 (5-19) 07/20/22 22:03 BUN 14 mg/dL (8-23) 07/20/22 22:03 Creatinine 0.5 mg/dL (0.5-0.9) 07/20/22 22:03 GFR Calculation 123.4 mL/min (90-130) 07/20/22 22:03 Glucose 151 mg/dL (65-115) H 07/20/22 22:03 Calculated Osmolality 289 mOsm/kg (285-295) 07/20/22 22:03 Calcium 9.2 mg/dL (8.5-10.5) 07/20/22 22:03 Total Bilirubin 0.2 mg/dL (0.15-1.2) 07/20/22 17:57 AST 22 U/L (0-32) 07/20/22 17:57 ALT 24 U/L (0-33) 07/20/22 17:57 Alkaline Phosphatase 94 U/L (35-105) 07/20/22 17:57 Troponin T Gen 5 ng/L 32 ng/L (0-10) H 07/20/22 22:03 Troponin T Baseline 39 ng/L (0-10) H 07/20/22 17:57 Total Protein 7.1 g/dL (6.6-8.7) 07/20/22 17:57 Albumin 4.0 g/dL (3.5-5.2) 07/20/22 17:57 Globulin 3.1 g/dL (1.3-4.6) 07/20/22 17:57 Discharge Plan Discharge Patient Disposition: Home Clinical Impression: Atypical chest pain, Acute hypokalemia Condition: Stable Prescriptions: New potassium chloride 20 mEq packet 20 meq PO BID Qty: 10 0RF No Action folic acid 1 mg tablet 1 mg PO BEDTIME methotrexate sodium 2.5 mg tablet 2.5 mg PO .ON MON,WED,FRI atorvastatin 20 mg tablet 20 mg PO QPM divalproex [Depakote] 500 mg tablet,delayed release (DR/EC) 500 mg PO BID Qty: 180 2RF buspirone 10 mg tablet 10 mg PO TID Qty: 270 2RF Rx Instructions: Take one tablet three times per day sertraline [Zoloft] 25 mg tablet 25 mg PO BID Qty: 180 2RF Rx Instructions: Take one tablet in morning and 3 pm Risperdal 0.5 mg tablet 0.5 mg PO BEDTIME Qty: 90 2RF Rx Instructions: Take one tablet at bedtime clonazepam [Klonopin] 1 mg tablet 1 mg PO BID Qty: 60 3RF Rx Instructions: Take one tablet twice per day nicotine 21-14-7 mg/24 hr patch, TD daily, sequential 1 patch transdermal DAILY Qty: 56 0RF Rx Instructions: apply one patch in am, remove prior to bedtime diclofenac sodium [Voltaren Arthritis Pain] 1 % gel 4 g topical QID Qty: 100 0RF Rx Instructions: apply to single knee, ankle, foot; for foot includes sole/toes/top of foot Flexeril 10 mg Tablet 10 mg PO TID PRN (Reason: Muscle Spasm) metoprolol tartrate 50 mg Tablet 50 mg PO BID ibuprofen 200 mg Tablet 600 mg PO Q4H PRN (Reason: Pain) albuterol sulfate 90 mcg/actuation Hfa Aerosol Inhaler 2 puff INHALATION Q4H PRN (Reason: Shortness Of Breath) meclizine 25 mg tablet 25 mg PO QID PRN (Reason: dizziness) Qty: 20 0RF enalapril-hydrochlorothiazide 10-25 mg tablet 1 tab PO BID Qty: 60 0RF Discharge Orders: Discharge ED (Routine); Ordered 07/20/22 Ordered By: Saeed Valdez Referrals: Shae Liu FNP [Primary Care Provider] - Patient Instructions: Opioid Safety, Pain Management Activity Restrictions/Additional Instructions: Take potassium as prescribed. Follow-up with your primary care physician in 3 to 5 days to recheck your potassium level. Your primary care physician can also arrange an outpatient stress test for you. The CT of your chest shows a right kidney mass that will require further evaluation. Your primary care physician can arrange for you to get a CT of your abdomen with IV contrast. Coding Level of Care Code ED Information Services Manager for Neil Li
--- NOTE | 2022-07-20 17:30 | CTR_ITS ---
PROCEDURE INFORMATION: Exam: CTA Chest With Contrast Exam date and time: 07/20/2022 7:23 PM Age: 67 years old Clinical indication: Pain; On breathing; Additional info: Intermittent chest pain TECHNIQUE: Imaging protocol: Computed tomographic angiography of the chest with contrast. 3D rendering (Not supervised by radiologist): MIP and/or 3D reconstructed images were created by the technologist. Radiation optimization: All CT scans at this facility use at least one of these dose optimization techniques: automated exposure control; mA and/or kV adjustment per patient size (includes targeted exams where dose is matched to clinical indication); or iterative reconstruction. Contrast material: OMNIPAQUE 350; Contrast volume: 80 ml; Contrast route: INTRAVENOUS (IV); REPORTING DATA: Count of CT and Cardiac NM exams in prior 12 months: This patient has received [address] and 0 known cardiac nuclear medicine studies in the 12 months prior to the current study. COMPARISON: CR (CHEST, ) 07/19/2022 5:00 PM RADIATION DOSE METRICS: Total DLP (mGy-cm): 366.67 FINDINGS: Pulmonary arteries: Normal. No pulmonary emboli. Aorta: Unremarkable. No aortic aneurysm. No aortic dissection. Lungs: Patchy bilateral peripheral atelectasis versus minimal infiltrate. Pleural spaces: Unremarkable. No pneumothorax. No pleural effusion. Heart: Cardiomegaly. Mediastinal space: Mild distal esophageal wall thickening may reflect an esophagitis in the appropriate clinical setting. Lymph nodes: Scattered prominent subcentimeter short axis mediastinal lymph nodes. Gallbladder and bile ducts: Cholecystectomy. Kidneys and ureters: Right kidney 3.2 cm equivocal solid mass seen, series 6, image 476, further evaluation with renal ultrasound or CT abdomen pelvis with intravenous contrast could further evaluate this nonemergently. Bones/joints: Unremarkable. No acute fracture. Soft tissues: Unremarkable. CT/CT angio chest PE protcl [id number] IMPRESSION: 1. Negative for pulmonary embolus. 2. Patchy bilateral peripheral atelectasis versus minimal infiltrate. 3. Scattered prominent subcentimeter short axis mediastinal lymph nodes, nonspecific. 4. Cardiomegaly. 5. Mild distal esophageal wall thickening may reflect an esophagitis in the appropriate clinical setting. 6. Cholecystectomy. 7. Right kidney 3.2 cm equivocal solid mass seen, series 6, image 476, further evaluation with renal ultrasound or CT abdomen pelvis with intravenous contrast could further evaluate this nonemergently.
[2022-07-20] MEDS: diphenhydrAMINE 50 mg/mL SDV 1mL IVP (18:13)
[2022-07-20 18:24] LABS: Basophils # 0.1 10^3/uL (0.0-0.1); Basophils % 0.7 %; Eosinophils # 0.1 10^3/uL (0.0-0.8); Eosinophils % 0.9 %; Hematocrit 43.8 % (37.0-47.0); Hemoglobin 14.3 g/dL (11.5-15.3); Lymphocytes # 5.2 10^3/uL (0.8-4.8); Lymphocytes % 37.1 %; Mean Corpuscular HGB Conc 32.6 g/dL (30.0-36.0); Mean Corpuscular Hemoglobin 29.1 pg (28.0-34.0); Mean Platelet Volume 10.1 fL (7.4-10.4); Monocytes # 1.1 10^3/uL (0.2-0.9); Neutrophils # 7.32 10^3/uL (1.8-7.7); Neutrophils % 52.5 %; Nucleated Red Blood Cells % 0 %; Platelet Count 462 10^3/cmm (130-400); Red Blood Count 4.92 10^6/uL (4.1-5.3); Red Cell Distribution Width 13.5 % (12.1-15.1); White Blood Count 13.9 10^3/uL (4.0-10.0)
[2022-07-20 18:36] LABS: Troponin(5th) Baseline 39 ng/L (0-10)
[2022-07-20 18:39] LABS: Alanine Aminotransferase 24 U/L (0-33); Alkaline Phosphatase 94 U/L (35-105); Anion Gap 17.8 (5-19); Aspartate Amino Transferase 22 U/L (0-32); Blood Urea Nitrogen 14 mg/dL (8-23); Calcium 9.8 mg/dL (8.5-10.5); Carbon Dioxide 27 mmol/L (22-29); Chloride 100 mmol/L (98-107); Globulin 3.1 g/dL (1.3-4.6); Glucose 111 mg/dL (65-115); Osmolality Calculated 295 mOsm/kg (285-295); Sodium 142 mmol/L (136-145); Total Bilirubin 0.2 mg/dL (0.15-1.2); Total Protein 7.1 g/dL (6.6-8.7)
--- NOTE | 2022-07-20 18:49 | ECG_ITS ---
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 Measurements Intervals [place] Rate: 107 P: 67 TX: 173 QRS: -11 QRSD: 90 T: 64 QT: 374 QTc: 499 Interpretive Statements SINUS TACHYCARDIA Compared to ECG 07/20/2022 14:46:53 ST (T wave) deviation no longer present Electronically Signed On 07-21-2022 10:27:27 BLOOD BANK ASSISTANT by Vickey Henderson M.D. [email or web address] Networkssumma health barberton campusAutoWeb, [id number]
[2022-07-20 18:52] LABS: Potassium 2.8 mmol/L (3.5-5.1)
[2022-07-20] MEDS: potassium chloride premix 100 ML 50 MEQ IV (19:05)
[2022-07-20] MEDS: potassium chloride ER 20 mEq Tablet 40 MEQ PO (19:05)
[2022-07-20] MEDS: iohexol 350 mg/mL 500 mL Btl (per mL) IV (19:36)
[2022-07-20] MEDS: acetaminophen 500 mg Tablet 1000 MG PO (21:38)
[2022-07-20 22:46] LABS: Troponin T (5th) Once 32 ng/L (0-10)
[2022-07-20 22:48] LABS: Anion Gap 18.6 (5-19); Blood Urea Nitrogen 14 mg/dL (8-23); Calcium 9.2 mg/dL (8.5-10.5); Carbon Dioxide 24 mmol/L (22-29); Chloride 100 mmol/L (98-107); Glomerular Filtration Rate 123.4 mL/min (90-130); Glucose 151 mg/dL (65-115); Osmolality Calculated 289 mOsm/kg (285-295); Potassium 4.6 mmol/L (3.5-5.1); Sodium 138 mmol/L (136-145)
--- NOTE | 2022-07-21 10:29 | DCPLANNER ---
Addendum entered by Shelly Shafer 08/24/22 07:50: Patient had a stress test scheduled - patient did attend appointment Addendum entered by Shelly Shafer 08/11/22 15:22: Patient has an appointment scheduled for Tuesday, August 23, 2022 at 8:15. Original Note: first assistant manager had message to schedule an outpatient stress test for patient. first assistant manager faxed signed order to centralized scheduling, who will call patient with appointment information.
== END 2022-07-20 23:36 | disposition home or self-care (01) ==
PROVIDERS: Emergency Provider Family Medicine; PCP Nurse Practitioner Family
DX: R07.89 Other chest pain (principal); E87.6 Hypokalemia; I51.7 Cardiomegaly; F17.210 Nicotine dependence, cigarettes, uncomplicated
CPT/HCPCS: 36415; 71275; 80048; 80053; 84484; 85025; 93005; 96365; 96366; 96375; 99285; J1200; J2920; J3480; Q9967

== ENCOUNTER 2022-08-10 12:18 | Outpatient (CLI) | payer MEDICARE, SELFPAY ==
--- NOTE | 2022-08-10 12:29 | CTR_ITS ---
PROCEDURE INFORMATION: Exam: CT Abdomen And Pelvis Without And With Contrast Exam date and time: 08/10/2022 12:51 PM Age: 67 years old Clinical indication: Condition or disease; Kidney or ureter condition; Prior surgery; Surgery type: Gb, hyst; Patient HX: Follow up RT kidney mass, RT side back pain x 4 months TECHNIQUE: Imaging protocol: Computed tomography of the abdomen and pelvis without and with contrast. 3D rendering (Not supervised by radiologist): MIP and/or 3D reconstructed images were created by the technologist. Radiation optimization: All CT scans at this facility use at least one of these dose optimization techniques: automated exposure control; mA and/or kV adjustment per patient size (includes targeted exams where dose is matched to clinical indication); or iterative reconstruction. Contrast material: OMNI 350; Contrast volume: 95 ml; Contrast route: INTRAVENOUS (IV); REPORTING DATA: Count of CT and Cardiac NM exams in prior 12 months: This patient has received [address] and 0 known cardiac nuclear medicine studies in the 12 months prior to the current study. COMPARISON: CT abdomen pelvis wo con [id number] 02/29/2016 11:[address] angio chest performed June 2022 RADIATION DOSE METRICS: Total DLP (mGy-cm): 2438.57 FINDINGS: Lungs: Minimal subpleural interstitial lung changes that may reflect early stage idiopathic interstitial lung disease. Liver: There is fatty infiltration of liver with 2 cm indistinct hypodense liver lesion right lobe with the some delayed internal enhancement that cannot be identified previously but this may be due to differences in technique, indeterminate. Gallbladder and bile ducts: Gallbladder has been removed. Bile ducts are not appreciably dilated. Pancreas: Unremarkable. Main pancreatic duct is not significantly dilated. Spleen: Normal. No splenomegaly. Adrenal glands: Normal. No mass. Kidneys and ureters: There is mild lobulation midpole right kidney unchanged from 2016, developmental in nature. There is no renal mass. Left kidney is unremarkable. Stomach and bowel: Unremarkable. No obstruction. No mucosal thickening. Appendix: No evidence of appendicitis. Intraperitoneal space: Unremarkable. No free air. No significant fluid collection. Vasculature: Scattered atherosclerotic changes of the abdominal aorta and iliac vessels. No aortic aneurysm. Lymph nodes: Unremarkable. No enlarged lymph nodes. Urinary bladder: Unremarkable as visualized. Reproductive: Uterus has been removed. Bones/joints: Degenerative changes L5-S1. No acute abnormalities. Soft tissues: Unremarkable. CT/CT abdomen pelvis wo/w [id number] IMPRESSION: 1. Incidental lobulation right kidney. Negative for renal mass. 2. 2 cm indeterminate liver lesion right lobe. Recommend either contrast enhanced MRI exam of the liver at this time or repeat CT abdomen with liver protocol in 3 months. 3. Additional chronic findings as above.
[2022-08-10] MEDS: iohexol 350 mg/mL 500 mL Btl (per mL) IV (13:01)
== END 2022-08-10 12:19 | disposition home or self-care (01) ==
LOC: RAD 12:23
PROVIDERS: PCP Nurse Practitioner Family; Visit Provider Nurse Practitioner Family
DX: N28.89 Other specified disorders of kidney and ureter (principal); Q63.1 Lobulated, fused and horseshoe kidney; K76.9 Liver disease, unspecified
CPT/HCPCS: 74178; Q9967

== ENCOUNTER 2022-08-23 07:48 | Outpatient (CLI) | payer MEDICARE, SELFPAY ==
--- NOTE | 2022-08-23 | ECG_ITS ---
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 Interpretive Statements NAME OF STUDY: LEXISCAN SESTAMIBI STRESS TEST INDICATION: [Chest Pain, ] Procedure: At the baseline, the blood pressure was 140/86 mmHg with a heart rate of 54 bpm. The electrocardiogram showed sinus bradycardia, normal axis with normal ST and T's. The Lexiscan was infused over a period of 20 seconds. A total of 0.4 mg of Lexiscan was infused. The stress phase was continued for a total of 5 minutes. Heart rate was at the end of stress phase was 79 bpm and a blood pressure of 173/99 mmHg. The EKG at the peak infusion revealed normal sinus rhythm with no significant ST-T wave changes. Sestamibi was injected 20 seconds after the Lexiscan infusion. Blood pressure at the end of recovery phase was 159/89 mmHg with a heart rate of 71 bpm. Conclusion: 1. Normal EKG response to Lexiscan infusion 2. No Lexiscan induced chest pain or cardiac arrhythmia. 3. Normal blood pressure and heart rate response. 4. Sestamibi/sestamibi perfusion scan pending; see separate report. Electronically Signed On 09-05-2022 14:12:44 CDT by Vickey Henderson M.D. [id number]
[2022-08-23 08:09] VITALS: BMI 31.8
--- NOTE | 2022-08-23 08:12 | NMCV_ITS ---
NM bentley perf SPECT r/s* [id number] Arcelia Crowe Age: 67 Gender: F : 1955 Exam Date: 08/23/2022 08:57 Ordering Phys: Shae LiuP QUALITY PROCESS AUDITOR Technologist: SKYLAR Gordon Exam Location: [facility] Indications: CHEST PAIN STRESS TEST Please see separate stress test report in [facility] for full findings IMAGE PROTOCOL Rest/Stress 1 Lexiscan Day Radiopharmaceutical Dose (mCi) Administration Site Administered by Rest: Tc-99m 10.8 IV SKYLAR Rey Sestamibi Stress:Tc-99m 32.5 IV SKYLAR Rey Sestamibi Rest: 23-Aug-2022 60 Discovery 630 Stress: 23-Aug-2022 30 Discovery 630 0.4mg Lexiscan. Images obtained in supine and prone position. SPECT RESULTS Technical Quality: Excellent Raw Data Analysis: Normal Image Corrections: No attenuation or motion correction applied Summed Stress Score: 1 Summed Rest Score: 0 Summed Difference Score: 1 PERFUSION FINDINGS SPECT images demonstrate homogeneous tracer distribution throughout the myocardium. FUNCTIONAL RESULTS (calculated via Gated SPECT) Stress Image LV EF (%): 69 Stress EDV (mL):67 TID: 0.94 Stress ESV (mL):21 FUNCTIONAL FINDINGS: There is normal left ventricular systolic function. IMPRESSIONS 1. Normal myocardial perfusion imaging with no evidence of ischemia 2. LV systolic function is normal Vickey Henderson MD (Electronically Signed) Final Date: 23 August 2022 13:05 S
[2022-08-23] MEDS: regadenoson 0.4 Mg/5 ml Syringe IVP (10:26)
[2022-08-23 11:14] VITALS: BP 159/89; PULSE 71
== END 2022-08-23 07:49 | disposition home or self-care (01) ==
LOC: CDL 07:51
PROVIDERS: PCP Nurse Practitioner Family; Visit Provider Nurse Practitioner Family
DX: R07.9 Chest pain, unspecified (principal)
CPT/HCPCS: 36415; 78452; 93017; 96374; A9500; J2785

== ENCOUNTER → 2022-08-24 14:39 | Outpatient (BNVA) | payer MEDICARE, SELFPAY | PROVIDERS: PCP Nurse Practitioner Family; Visit Provider Internal Medicine | DX: M25.9 Joint disorder, unspecified (principal); M79.643 Pain in unspecified hand; R21 Rash and other nonspecific skin eruption; M54.2 Cervicalgia | CPT/HCPCS: 99214 ==

== ENCOUNTER 2022-10-28 14:29 | Outpatient (CLI) | payer MEDICARE, SELFPAY ==
--- NOTE | 2022-10-28 14:44 | CTR_ITS ---
PROCEDURE INFORMATION: Exam: CT Abdomen And Pelvis With Contrast Exam date and time: 10/28/2022 2:57 PM Age: 67 years old Clinical indication: Abnormal findings; Abnormal radiologic finding of the abdomen; Radiologic exam and body structure: Mrcp; Prior surgery; Surgery date: 6+ months; Surgery type: Gb, hyst; Additional info: R liver lesion, liver protocol TECHNIQUE: Imaging protocol: Computed tomography of the abdomen and pelvis with contrast. Radiation optimization: All CT scans at this facility use at least one of these dose optimization techniques: automated exposure control; mA and/or kV adjustment per patient size (includes targeted exams where dose is matched to clinical indication); or iterative reconstruction. Contrast material: OMNI 350; Contrast volume: 100 ml; Contrast route: INTRAVENOUS (IV); REPORTING DATA: Count of CT and Cardiac NM exams in prior 12 months: This patient has received 3 known CTs and 0 known cardiac nuclear medicine studies in the 12 months prior to the current study. COMPARISON: CT abdomen pelvis wo/w [id number] 08/10/2022 12:51 PM RADIATION DOSE METRICS: Total DLP (mGy-cm): 2438.57 FINDINGS: Liver: Unchanged size of ill-defined hypodense lesion in the right hepatic lobe with nodular discontinuous enhancement, which fills with contrast on delayed images, likely representing hemangioma. The liver is otherwise unremarkable. No cirrhotic features seen. Gallbladder and bile ducts: The gallbladder has been surgically removed. Pancreas: Normal. No ductal dilation. Spleen: A small accessory splenule is noted in the left upper quadrant. The spleen is unremarkable. Adrenal glands: Normal. No mass. Kidneys and ureters: Unchanged areas of cortical thinning in the right kidney, consistent with scarring. No hydronephrosis or nephrolithiasis. Symmetric enhancement of the kidneys. The opacified renal collecting system is unremarkable. Stomach and bowel: Unremarkable. No obstruction. No mucosal thickening. Appendix: No evidence of appendicitis. Intraperitoneal space: Unremarkable. No free air. No significant fluid collection. Vasculature: Unremarkable. No abdominal aortic aneurysm. Lymph nodes: Unremarkable. No enlarged lymph nodes. Urinary bladder: Unremarkable as visualized. Reproductive: The uterus is surgically absent. Bones/joints: Degenerative changes of the spine seen. Soft tissues: Unremarkable. CT/CT abdomen pelvis w con* [id number] IMPRESSION: Unchanged right hepatic lesion with imaging characteristics suggestive of hemangioma. Further characterization with contrast enhanced abdomen MRI should be considered in the adequate clinical setting.
[2022-10-28] MEDS: iohexol 350 mg/mL 500 mL Btl (per mL) IV (14:48)
== END 2022-10-28 14:30 | disposition home or self-care (01) ==
LOC: RAD 14:31
PROVIDERS: PCP Nurse Practitioner Family; Visit Provider Nurse Practitioner Family
DX: K76.9 Liver disease, unspecified (principal)
CPT/HCPCS: 74177; Q9967

== ENCOUNTER → 2022-11-03 14:38 | Outpatient (BNVA) | payer MEDICARE, SELFPAY | PROVIDERS: PCP Nurse Practitioner Family; Visit Provider Internal Medicine | DX: M25.9 Joint disorder, unspecified (principal); R42 Dizziness and giddiness | CPT/HCPCS: 99214 ==

== ENCOUNTER → 2022-11-16 11:17 | Outpatient (BNVA) | payer MEDICARE, SELFPAY | PROVIDERS: PCP Nurse Practitioner Family; Visit Provider Nurse Practitioner Psychiatric/Mental Health | DX: Z79.899 Other long term (current) drug therapy (principal) | CPT/HCPCS: 80061; 80164; 83036 ==

== ENCOUNTER 2023-03-19 14:53 | Emergency (ER) | payer MEDICARE, SELFPAY ==
[2023-03-19] VITALS (26 sets, daily range): BP systolic 158–193; BP diastolic 76–95; PULSE 55–70; RESP 14–27; TEMP 36.4; O2SAT 92–100; BMI 31.1
--- NOTE | 2023-03-19 15:09 | CTR_ITS ---
PROCEDURE INFORMATION: Exam: CT Chest Without Contrast; Diagnostic Exam date and time: 03/19/2023 3:28 PM Age: 67 years old Clinical indication: Injury or trauma; Fall; Blunt trauma (contusions or hematomas); Additional info: Fall sternum back pain TECHNIQUE: Imaging protocol: Diagnostic computed tomography of the chest without contrast. Radiation optimization: All CT scans at this facility use at least one of these dose optimization techniques: automated exposure control; mA and/or kV adjustment per patient size (includes targeted exams where dose is matched to clinical indication); or iterative reconstruction. REPORTING DATA: Count of CT and Cardiac NM exams in prior 12 months: This patient has received 4 known CTs and 0 known cardiac nuclear medicine studies in the 12 months prior to the current study. COMPARISON: CT angio chest PE protcl [id number] 07/20/2022 7:23 PM RADIATION DOSE METRICS: Total DLP (mGy-cm): 450.5 FINDINGS: Lungs: Emphysematous changes. Bilateral dependent atelectasis. Right middle lobe 3.9 mm nodule, series 4, image 34, similar to prior exam. Several additional scattered subcentimeter pulmonary nodules are also suspected. Pleural spaces: Unremarkable. No pneumothorax. No pleural effusion. Heart: Unremarkable. No cardiomegaly. No pericardial effusion. Mediastinal space: Anterior mediastinal hematoma measuring up to 8 cm craniocaudal by 6 cm transverse, likely related to history of trauma, a CT with intravenous contrast could further assess this for potential active bleeding as clinically indicated. Lymph nodes: Unremarkable. No enlarged lymph nodes. Vasculature: Unremarkable. No aortic aneurysm. Gallbladder and bile ducts: Cholecystectomy. Bones/joints: Right anterolateral 2nd and 3rd mildly displaced rib fractures. Soft tissues: Unremarkable. CT/CT chest con [id number] IMPRESSION: 1. Anterior mediastinal hematoma measuring up to 8 cm craniocaudal by 6 cm transverse, likely related to history of trauma, a CT with intravenous contrast could further assess this for potential active bleeding as clinically indicated. 2. Right anterolateral 2nd and 3rd mildly displaced rib fractures. 3. Cholecystectomy. 4. Emphysematous changes. 5. Bilateral dependent atelectasis. 6. Right middle lobe 3.9 mm nodule, series 4, image 34, similar to prior exam. Several additional scattered subcentimeter pulmonary nodules are also suspected. For patients at low risk (minimal or absent history of smoking and of other known risk factors), no routine follow-up is indicated. For patients at high risk (history of smoking or of other known risk factors), consider optional CT Chest at 12 months. (Reference: Mirela) COMMENTS: In the absence of a history or active diagnosis of lung cancer, it is recommended that this patient with emphysema be evaluated for enrollment in a low dose CT lung cancer screening program. REFERENCES: Mirela Nicolas, et al. Guidelines for Management of Incidental Pulmonary Nodules Detected on CT Images: From the Fleischner Society 2017. Radiology. 2017;284(1):228-243.
--- NOTE | 2023-03-19 15:09 | XRR_ITS ---
PROCEDURE INFORMATION: Exam: XR Right Elbow Exam date and time: 03/19/2023 3:29 PM Age: 67 years old Clinical indication: Injury or trauma; Fall; Blunt trauma (contusions or hematomas); Elbow; Right; Additional info: Fall pain TECHNIQUE: Imaging protocol: Radiologic exam of the right elbow. Views: 3 or more views. COMPARISON: No relevant prior studies available. FINDINGS: Bones/joints: Normal. Soft tissues: Proximal radial collateral ligament degenerative calcification. XR/XR elbow RT min 3V* [id number] IMPRESSION: 1. No acute findings. 2. Proximal radial collateral ligament degenerative calcification.
--- NOTE | 2023-03-19 15:09 | CTR_ITS ---
PROCEDURE INFORMATION: Exam: CT Head Without Contrast Exam date and time: 03/19/2023 3:22 PM Age: 67 years old Clinical indication: Injury or trauma; Fall; Blunt trauma (contusions or hematomas); Additional info: Fall head pain TECHNIQUE: Imaging protocol: Computed tomography of the head without contrast. Radiation optimization: All CT scans at this facility use at least one of these dose optimization techniques: automated exposure control; mA and/or kV adjustment per patient size (includes targeted exams where dose is matched to clinical indication); or iterative reconstruction. REPORTING DATA: Count of CT and Cardiac NM exams in prior 12 months: This patient has received 4 known CTs and 0 known cardiac nuclear medicine studies in the 12 months prior to the current study. COMPARISON: CT head wo con* [id number] 07/27/2021 2:29 PM RADIATION DOSE METRICS: Total DLP (mGy-cm): 1029.5 FINDINGS: Brain: Mild parenchymal volume loss. Mild small vessel ischemic disease. No extra-axial fluid collection. Cerebral ventricles: Intraventricular hemorrhage seen in the left lateral ventricle with a tiny amount of blood in the 3rd ventricle. Origin is uncertain, possibly adjacent to left thalamus or basal ganglia. No hydrocephalus. Paranasal sinuses: Visualized sinuses are unremarkable. No fluid levels. Mastoid air cells: Visualized mastoid air cells are well aerated. Bones/joints: Unremarkable. No acute fracture. Soft tissues: Unremarkable. CT/CT head wo con* [id number] IMPRESSION: Hemorrhage within the left lateral ventricle and minimally in the 3rd ventricle. Site of origin is uncertain but possibly left thalamus. No hydrocephalus.
--- NOTE | 2023-03-19 15:09 | XRR_ITS ---
PROCEDURE INFORMATION: Exam: XR Right Shoulder Exam date and time: 03/19/2023 3:36 PM Age: 67 years old Clinical indication: Injury or trauma; Fall; Blunt trauma (contusions or hematomas); Shoulder; Right; Additional info: Fall pain TECHNIQUE: Imaging protocol: Radiologic exam of the right shoulder. Views: 2 or more views. COMPARISON: CR (UP EX, ) 03/19/2023 3:29 PM FINDINGS: Bones/joints: Normal. Soft tissues: Normal. XR/XR shoulder RT min 2V* [id number] IMPRESSION: No acute findings.
--- NOTE | 2023-03-19 15:09 | CTR_ITS ---
PROCEDURE INFORMATION: Exam: CT Cervical Spine Without Contrast Exam date and time: 03/19/2023 3:22 PM Age: 67 years old Clinical indication: Injury or trauma; Fall; Blunt trauma; Additional info: Fall neck pain TECHNIQUE: Imaging protocol: Computed tomography of the cervical spine without contrast. Radiation optimization: All CT scans at this facility use at least one of these dose optimization techniques: automated exposure control; mA and/or kV adjustment per patient size (includes targeted exams where dose is matched to clinical indication); or iterative reconstruction. REPORTING DATA: Count of CT and Cardiac NM exams in prior 12 months: This patient has received 4 known CTs and 0 known cardiac nuclear medicine studies in the 12 months prior to the current study. COMPARISON: MR cervical spin wo con* [id number] 06/16/2022 9:54 AM RADIATION DOSE METRICS: Total DLP (mGy-cm): 696.3 FINDINGS: Bones/joints: There is normal alignment. Anterior fusion C5-C6. No fracture. No canal stenosis. Lungs: Lung apices are normal. Pleural spaces: Biapical pleural-parenchymal scarring. Soft tissues: Unremarkable. CT/CT cervical spin wo con* [id number] IMPRESSION: No acute findings.
[2023-03-19 15:33] LABS: Basophils # 0.1 10^3/uL (0.0-0.1); Basophils % 0.7 %; Eosinophils # 0.2 10^3/uL (0.0-0.8); Eosinophils % 1.7 %; Hematocrit 37.3 % (36-47); Lymphocytes # 2.4 10^3/uL (0.8-4.8); Lymphocytes % 19.3 %; Mean Corpuscular HGB Conc 33.5 g/dL (30-55); Mean Corpuscular Hemoglobin 30.4 pg (27-33); Mean Corpuscular Volume 90.8 fl (85-98); Mean Platelet Volume 10.6 fL (7.4-10.4); Monocytes # 0.6 10^3/uL (0.2-0.9); Neutrophils # 8.92 10^3/uL (1.8-7.7); Neutrophils % 72.6 %; Nucleated Red Blood Cells % 0 %; Platelet Count 259 10^3/cmm (157-399); Red Blood Count 4.11 10^6/uL (3.85-5.65); Red Cell Distribution Width 13.6 % (12.1-15.1)
[2023-03-19 15:48] LABS: Alanine Aminotransferase 24 U/L (0-33); Alkaline Phosphatase 79 U/L (35-105); Anion Gap 16.3 (5-19); Aspartate Amino Transferase 25 U/L (0-32); Blood Urea Nitrogen 18 mg/dL (8-23); Calcium 8.8 mg/dL (8.5-10.5); Carbon Dioxide 25 mmol/L (22-29); Chloride 101 mmol/L (98-107); Globulin 2.3 g/dL (1.3-4.6); Glomerular Filtration Rate 83.7 mL/min (90-130); Glucose 143 mg/dL (65-115); Osmolality Calculated 292 mOsm/kg (285-295); Potassium 3.3 mmol/L (3.5-5.1); Sodium 139 mmol/L (136-145); Total Bilirubin 0.4 mg/dL (0.15-1.2); Total Protein 6.3 g/dL (6.6-8.7)
--- NOTE | 2023-03-19 15:49 | W.ED.GENADLT ---
HPI - General Adult General: Stated complaint: AMS Time Seen by Provider: 03/19/23 15:02 History of Present Illness: Patient presents to the ER for altered mental status. It appears that patient may have fell about 8 feet off her porch while paining the upper railing. She was found down on the ground in an altered state. She is saying she has pain in her mid back her head to her sternum and right shoulder. Patient was found by her son. He called EMS and he got her up and put her in a chair. She is oriented to person but is slow to respond to questions but does give appropriate answers. Patient was given 100 mcg of fentanyl on route per EMS. Patient denies any anticoagulation at this time. Review of Systems General: Reports: 10 or more systems reviewed and unremarkable except in HPI and below PFSH ED PFSH: Medical History Bipolar 1 disorder, manic, full remission Generalized anxiety disorder Hand pain Nicotine dependence, cigarettes, uncomplicated Social History Smoking and tobacco/nicotine status: current every day tobacco/nicotine user cigarettes Packs smoked per day: 0.5 Quit status (tobacco/nicotine): has tried quititng Physical Exam Const: COMMON NORMALS: no acute distress, average body habitus, patient oriented x3, no limitations, healthy appearing, alert and well nourished HENMT: COMMON NORMALS: normocephalic, hearing grossly normal bilaterally, external ears normal, Normal external nose present, moist oral mucous membranes and oropharynx normal; head/scalp not atraumatic (Tender to palpate over posterior left occipital region no obvious crepitus) HEAD & SCALP: normocephalic; not atraumatic (Tender to palpate over posterior left occipital region no obvious crepitus) NOSE: Normal external nose present EXTERNAL EAR: Yes external ears normal Eye: COMMON NORMALS: Equal, round and reactive pupils present, EOMs intact bilaterally, conjunctivae normal and no scleral icterus CONJUNCTIVA: Yes conjunctivae normal PUPIL: Yes Equal, round and reactive pupils present Neck/C-Spine: COMMON NORMALS: no JVD OTHER: In c-collar Chest: COMMONS NORMALS: normal inspection of the chest; negative for normal palpation of entire chest wall (Tender to palpate over sternal region.) Resp: COMMON NORMALS: normal respiratory effort, No retractions, No use of accessory muscles and clear to auscultation bilaterally AUSCULTATION: clear to auscultation bilaterally Cardio: COMMON NORMALS: no JVD, regular rate, regular rhythm, S1 normal heart sound present, S2 normal heart sound present, No gallops present (Cardio), No clicks present (Cardio), No murmurs present (Cardio) and No rub (Cardio) RATE: regular rate RHYTHM: regular rhythm HEART SOUNDS: S1 normal heart sound present and S2 normal heart sound present GI: COMMON NORMALS: Normal to inspection, nondistended, normoactive bowel sounds present, Soft to palpation, non-tender, No hepatosplenomegaly present, no masses and no bruits PALPATION: Yes Soft to palpation and Yes No hepatosplenomegaly present : COMMON NORMALS: Yes no CVA tenderness BLADDER/KIDNEY EXAM: Yes no CVA tenderness Back/Pelvis: COMMON NORMALS: no CVA tenderness Extremity: NARRATIVE EXTREMITY EXAM: Tender to palpate over right shoulder and right elbow region no obvious deformity or crepitus noted. Neuro: COMMON NORMALS: patient oriented x3 SENSORIUM/ORIENTATION: Yes alert Course Vital Signs: Vital signs: Vital Signs Temperature 97.5 F L 03/19/23 14:56 Pulse Rate 56 L 03/19/23 16:23 Respiratory Rate 18 03/19/23 16:23 Blood Pressure 178/76 03/19/23 16:23 Pulse Oximetry 98 03/19/23 16:23 Oxygen Delivery Me thod Room Air 03/19/23 16:23 MDM - General Adult Medical Decision Making Possibility patient fell off her porch while painting. Radiology called and patient does have a hemorrhage within her left lateral ventricle and minimally in the third ventricle. Anticipate patient be transferred to trauma to [facility] or [facility]. Patient and son preferred [facility] ER. Dr. Winter in [facility] ER was consulted who agreed to take the patient in transfer for further evaluation and treatment. Differential Diagnosis Fall, altered mental status, Medical Records I reviewed the patient's medical records. Lab Data I reviewed the patient's lab results. 03/19/23 15:12 03/19/23 15:12 Radiology Impressions Cervical Spine CT 03/19/23 15:09 IMPRESSION: No acute findings. Chest CT 03/19/23 15:09 IMPRESSION: 1. Anterior mediastinal hematoma measuring up to 8 cm craniocaudal by 6 cm transverse, likely related to history of trauma, a CT with intravenous contrast could further assess this for potential active bleeding as clinically indicated. 2. Right anterolateral 2nd and 3rd mildly displaced rib fractures. 3. Cholecystectomy. 4. Emphysematous changes. 5. Bilateral dependent atelectasis. 6. Right middle lobe 3.9 mm nodule, series 4, image 34, similar to prior exam. Several additional scattered subcentimeter pulmonary nodules are also suspected. For patients at low risk (minimal or absent history of smoking and of other known risk factors), no routine follow-up is indicated. For patients at high risk (history of smoking or of other known risk factors), consider optional CT Chest at 12 months. (Reference: Mirela) COMMENTS: In the absence of a history or active diagnosis of lung cancer, it is recommended that this patient with emphysema be evaluated for enrollment in a low dose CT lung cancer screening program. REFERENCES: Mirela Nicolas, et al. Guidelines for Management of Incidental Pulmonary Nodules Detected on CT Images: From the Fleischner Society 2017. Radiology. 2017;284(1):228-243. Elbow X-Ray 03/19/23 15:09 IMPRESSION: 1. No acute findings. 2. Proximal radial collateral ligament degenerative calcification. Head CT 03/19/23 15:09 IMPRESSION: Hemorrhage within the left lateral ventricle and minimally in the 3rd ventricle. Site of origin is uncertain but possibly left thalamus. No hydrocephalus. ADDENDUM: 03/19/[address] Peterson 03/19/2023 at 3:47 p.m. central standard time. Shoulder X-Ray 03/19/23 15:09 IMPRESSION: No acute findings. Laboratory Results WBC 12.30 10^3/uL (3.29-11.43) H 03/19/23 15:12 RBC 4.11 10^6/uL (3.85-5.65) 03/19/23 15:12 Hgb 12.50 g/dL (11.27-16.99) 03/19/23 15:12 Hct 37.3 % (36-47) 03/19/23 15:12 MCV 90.8 fl (85-98) 03/19/23 15:12 MCH 30.4 pg (27-33) 03/19/23 15:12 MCHC 33.5 g/dL (30-55) 03/19/23 15:12 RDW 13.6 % (12.1-15.1) 03/19/23 15:12 Plt Count 259 10^3/cmm (157-399) 03/19/23 15:12 MPV 10.6 fL (7.4-10.4) H 03/19/23 15:12 Neut % (Auto) 72.6 % 03/19/23 15:12 Lymph % (Auto) 19.3 % 03/19/23 15:12 [place] % (Auto) 5.0 % 03/19/23 15:12 Eos % (Auto) 1.7 % 03/19/23 15:12 Baso % (Auto) 0.7 % 03/19/23 15:12 Neut # (Auto) 8.92 10^3/uL (1.8-7.7) H 03/19/23 15:12 Lymph # (Auto) 2.4 10^3/uL (0.8-4.8) 03/19/23 15:12 [place] # (Auto) 0.6 10^3/uL (0.2-0.9) 03/19/23 15:12 Eos # (Auto) 0.2 10^3/uL (0.0-0.8) 03/19/23 15:12 Baso # (Auto) 0.1 10^3/uL (0.0-0.1) 03/19/23 15:12 Nucleated RBC % (auto) 0 % 03/19/23 15:12 Nucleated RBCs # 0.0 /100WBC 03/19/23 15:12 PT 14.60 SECONDS (12.1-14.9) 03/19/23 15:12 INR 1.10 (0.8-1.2) 03/19/23 15:12 Sodium 139 mmol/L (136-145) 03/19/23 15:12 Potassium 3.3 mmol/L (3.5-5.1) L 03/19/23 15:12 Chloride 101 mmol/L (98-107) 03/19/23 15:12 Carbon Dioxide 25 mmol/L (22-29) 03/19/23 15:12 Anion Gap 16.3 (5-19) 03/19/23 15:12 BUN 18 mg/dL (8-23) 03/19/23 15:12 Creatinine 0.7 mg/dL (0.5-0.9) 03/19/23 15:12 GFR Calculation 83.7 mL/min (90-130) L 03/19/23 15:12 Glucose 143 mg/dL (65-115) H 03/19/23 15:12 Calculated Osmolality 292 mOsm/kg (285-295) 03/19/23 15:12 Calcium 8.8 mg/dL (8.5-10.5) 03/19/23 15:12 Total Bilirubin 0.4 mg/dL (0.15-1.2) 03/19/23 15:12 AST 25 U/L (0-32) 03/19/23 15:12 ALT 24 U/L (0-33) 03/19/23 15:12 Alkaline Phosphatase 79 U/L (35-105) 03/19/23 15:12 Total Protein 6.3 g/dL (6.6-8.7) L 03/19/23 15:12 Albumin 4.0 g/dL (3.5-5.2) 03/19/23 15:12 Globulin 2.3 g/dL (1.3-4.6) 03/19/23 15:12 All radiology interpretation(s) finalized by discharge Discharge Plan Discharge Patient Disposition: Xfer Short-Term Hosp Clinical Impression: Acute cerebral hemorrhage, Mediastinal hematoma, Right rib fracture, Fall Condition: Stable Referrals: Shae Liu FNP [Primary Care Provider] - Coding Level of Care Code ED Transportation Planning Engineer for Neil Li
[2023-03-19] MEDS: fentaNYL 50 mcg/mL INJ 2mL IVP ×2 (16:21→17:59)
--- NOTE | 2023-03-19 16:25 | PC.NURSE ---
pt resting in room 12. pt uncomfortable at this time, this nurse administered 50mcg fentanyl. pt son at bedside.
--- NOTE | 2023-03-19 18:02 | PC.NURSE ---
report called to [facility] Karen LIRIANO RN. report given to [facility] upon transport. pt left at 1802.
== END 2023-03-19 19:08 | disposition short-term general hospital (02) ==
PROVIDERS: Emergency Provider Emergency Medicine; PCP Nurse Practitioner Family
DX: S06.2XAA Diffuse traumatic brain injury with loss of consciousness status unknown, initial encounter (principal); S27.892A Contusion of other specified intrathoracic organs, initial encounter; S22.41XA Multiple fractures of ribs, right side, initial encounter for closed fracture; F17.210 Nicotine dependence, cigarettes, uncomplicated; W17.89XA Other fall from one level to another, initial encounter
CPT/HCPCS: 70450; 71250; 72125; 73030; 73080; 80053; 85025; 85610; 96374; 96376; 99285; J3010

== ENCOUNTER 2023-04-26 15:27 | Outpatient (CLI) | payer MEDICARE, SELFPAY ==
--- NOTE | 2023-04-26 15:54 | CT_ITS ---
WS: [id number] CT HEAD TECHNIQUE: Noncontrast CT of the head obtained from the skullbase to the vertex. CLINICAL INFORMATION: CEREBRAL HEMORRHAGE COMPARISON: CT 03/19/2023 DLP: 1010.[address] scans at [facility] use at least one of these dose optimization techniques: automated e xposure control; mA and/or kV adjustment per patient size (includes targeted exams where dose is matc hed to clinical indication); or iterative reconstruction. FINDINGS: No evidence of intracranial hemorrhage or mass effect. Ventricular system and basal cisterns are salmon nt. Moderate small vessel changes with moderate parenchymal volume loss. Previously described intrave ntricular hemorrhage has resolved compared to previous. No evidence of new or progressive hemorrhage. No hydrocephalus. Paranasal sinuses and mastoid air cells are well aerated. .Normal visualized soft tissues. IMPRESSION: 1. No evidence of intracranial hemorrhage or mass effect. 2. Previously described intraventricular hemorrhage has resolved. 3. Moderate small vessel changes. Moderate parenchymal volume loss. 4. No acute intracranial findings.
== END 2023-04-26 15:28 | disposition home or self-care (01) ==
LOC: RAD 15:28
PROVIDERS: PCP Nurse Practitioner Family; Visit Provider Nurse Practitioner Family
DX: I61.9 Nontraumatic intracerebral hemorrhage, unspecified (principal)
CPT/HCPCS: 70450

== ENCOUNTER → 2023-05-04 11:06 | Outpatient (BNVA) | payer MEDICARE, SELFPAY | PROVIDERS: PCP Nurse Practitioner Family; Visit Provider Nurse Practitioner | DX: S49.91XA Unspecified injury of right shoulder and upper arm, initial encounter (principal); M75.81 Other shoulder lesions, right shoulder; W19.XXXA Unspecified fall, initial encounter; Y92.009 Unspecified place in unspecified non-institutional (private) residence as the place of occurrence of the external cause | CPT/HCPCS: 73030; 99214 ==

== ENCOUNTER → 2023-06-15 09:40 | Outpatient (BNVA) | payer MEDICARE, SELFPAY | PROVIDERS: PCP Nurse Practitioner Family; Visit Provider Nurse Practitioner | DX: M25.511 Pain in right shoulder (principal); M75.81 Other shoulder lesions, right shoulder; W19.XXXD Unspecified fall, subsequent encounter | CPT/HCPCS: 73030; 99214 ==

== ENCOUNTER → 2023-08-17 13:45 | Outpatient (BNVA) | payer MEDICARE, SELFPAY | PROVIDERS: PCP Nurse Practitioner Family; Visit Provider Nurse Practitioner | DX: M75.81 Other shoulder lesions, right shoulder (principal); W19.XXXD Unspecified fall, subsequent encounter; S49.91XD Unspecified injury of right shoulder and upper arm, subsequent encounter | CPT/HCPCS: 99213 ==

== ENCOUNTER 2023-11-10 12:05 | Emergency (ER) | payer MEDICARE, SELFPAY ==
[2023-11-10 12:09] VITALS: BP 147/81; PULSE 52; RESP 16; TEMP 36.7; O2SAT 96; BMI 30.1
--- NOTE | 2023-11-10 13:03 | XRR_ITS ---
PROCEDURE INFORMATION: Exam: XR Chest Exam date and time: 11/10/2023 1:39 PM Age: 68 years old Clinical indication: Injury or trauma; Fall; Blunt trauma (contusions or hematomas); Additional info: Altered mental status S/P fall TECHNIQUE: Imaging protocol: Radiologic exam of the chest. Views: 1 view. COMPARISON: CR XR chest 2V* [id number] 10/19/2023 12:58 PM FINDINGS: Airway: Patent Lungs: Unremarkable. No consolidation. Pleural spaces: Unremarkable. No pleural effusion. No pneumothorax. Heart/Mediastinum: Unremarkable. No cardiomegaly. Bones/joints: No acute skeletal abnormality or aggressive osseous lesion. Partially visualized lower cervical spine fixation hardware without discrete complications. XR/XR chest 1V portable [id number] IMPRESSION: No acute findings.
--- NOTE | 2023-11-10 13:03 | CT_ITS ---
WS: [id number] CT HEAD TECHNIQUE: Noncontrast CT of the head obtained from the skullbase to the vertex. CLINICAL INFORMATION: confusion with gen headache s/p fall 2 weeks ago COMPARISON: None. DLP: 1063.[address] scans at [facility] use at least one of these dose optimization techniques: automated e xposure control; mA and/or kV adjustment per patient size (includes targeted exams where dose is matc hed to clinical indication); or iterative reconstruction. FINDINGS: No evidence of intracranial hemorrhage or mass effect. Ventricular system and basal cisterns are salmon nt. Moderate small vessel changes with moderate parenchymal volume loss. Tiny chronic lacunar infarct RIGHT caudate. Tiny chronic appearing lacunar infarct LEFT owen. This has a chronic appearance but i s new from 2022. No extra-axial fluid collections. No evidence of mass or mass effect. Paranasal sinuses and mastoid air cells are well aerated. Normal posterior nasopharynx. Normal visual ized soft tissues. CT/CT head wo con* [id number] IMPRESSION: 1. No evidence of intracranial hemorrhage or mass effect. 2. Tiny chronic lacunar infarct RIGHT caudate. Tiny chronic appearing lacunar infarct LEFT owen. 3. Moderate small vessel changes with moderate parenchymal volume loss. 4. No acute intracranial findings.
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
[2023-11-10 13:34] LABS: Glucose Point of Care 85 mg/dL (70-110)
[2023-11-10] MEDS: sodium chloride 0.9% 1,000 ML 999 ML IV (13:36)
[2023-11-10 13:42] LABS: Basophils # 0.1 10^3/uL (0.0-0.1); Basophils % 1.8 %; Eosinophils # 0.6 10^3/uL (0.0-0.8); Eosinophils % 8.3 %; Hematocrit 36.1 % (36-47); Lymphocytes # 2.8 10^3/uL (0.8-4.8); Lymphocytes % 38.1 %; Mean Corpuscular HGB Conc 31.6 g/dL (30-55); Mean Corpuscular Hemoglobin 28.9 pg (27-33); Mean Corpuscular Volume 91.4 fl (85-98); Mean Platelet Volume 9.5 fL (7.4-10.4); Monocytes # 0.8 10^3/uL (0.2-0.9); Monocytes % 10.7 %; Neutrophils # 2.98 10^3/uL (1.8-7.7); Neutrophils % 40.7 %; Nucleated Red Blood Cells % 0 %; Platelet Count 334 10^3/cmm (157-399); Red Blood Count 3.95 10^6/uL (3.85-5.65); Red Cell Distribution Width 14.6 % (12.1-15.1); White Blood Count 7.32 10^3/uL (3.29-11.43)
[2023-11-10 13:45] VITALS: BP 153/77; PULSE 60; RESP 15; O2SAT 95
[2023-11-10 14:00] VITALS: BP 157/84; PULSE 60; RESP 16; O2SAT 97
[2023-11-10 14:10] LABS: Alanine Aminotransferase 21 U/L (0-33); Albumin Level 3.4 g/dL (3.5-5.2); Alcohol Level < 10 mg/dL (0-10); Alkaline Phosphatase 104 U/L (35-105); Anion Gap 11.7 (5-19); Aspartate Amino Transferase 16 U/L (0-32); Blood Urea Nitrogen 12 mg/dL (8-23); C Reactive Protein 3.4 mg/L (0.0-4.9); Calcium 8.7 mg/dL (8.5-10.5); Carbon Dioxide 30 mmol/L (22-29); Chloride 106 mmol/L (98-107); Creatinine Clr Calc Pharmacy 67.0963; Globulin 3.7 g/dL (1.3-4.6); Glomerular Filtration Rate 99.7 mL/min (90-130); Glucose 87 mg/dL (65-115); Osmolality Calculated 297 mOsm/kg (285-295); Potassium 3.7 mmol/L (3.5-5.1); Sodium 144 mmol/L (136-145); Total Bilirubin 0.3 mg/dL (0.15-1.2); Total Protein 7.1 g/dL (6.6-8.7)
[2023-11-10] MEDS: ketorolac 30 mg/mL INJ 15 MG IVP (14:17)
--- NOTE | 2023-11-10 15:27 | ED_ITS ---
HPI - Head Injury 2 General: Chief complaint: Head Injury Stated complaint: fell, abd pain dizziness Time Seen by Provider: 11/10/23 12:33 History of Present Illness: 58-year-old female presents emergency de partment chief complaint of having a fall approximately 2 weeks ago. Patient endorses since that time she has had some dizziness and headaches and short-term memory loss patient endorses a prior history of concussions patient presents to the ER for further assessment and management. Associated symptoms: Deny nausea or vomiting Review of Systems 2 General: Reports: 10 or more systems reviewed and unremarkable except in HPI and below Const: Denies: fever(s), chills, fatigue or malaise Eyes: Denies: change in vision or blurry vision Card: Denies: chest pain or palpitations Resp: Denies: dyspnea or productive cough GI: Denies: abdominal pain, nausea or vomiting : Denies: flank pain Musc: Denies: extremity pain or extremity swelling Skin/Breast: Denies: rash or pruritus Neuro: Reports: headache(s), lack of coordination and dizziness Psych: Denies: anxiety or depression Doroteo/Lymph: Denies: easy bleeding All/Imm: Denies: urticaria, throat swelling or facial swelling PFSH ED 2 PFSH: Medical History Psychiatric care Fall at home Right shoulder pain Right rotator cuff tendonitis Hand pain Nicotine dependence, cigarettes, uncomplicated Bipolar 1 disorder, manic, full remission Generalized anxiety disorder Social History Smoking and tobacco/nicotine status: current every day tobacco/nicotine user cigarettes Packs smoked per day: 0.5 Quit status (tobacco/nicotine): has tried quititng Physical Exam 2 Narrative: EXAM NARRATIVE: No focal neurodeficits are appreciated patient reports some mild weakness and dizziness no nystagmus appreciated complaining of mild temporal headache no obvious external trauma. Const: COMMON NORMALS: no acute distress, patient oriented x3 and healthy appearing HENMT: COMMON NORMALS: normocephalic and atraumatic HEAD & SCALP: n ormocephalic and atraumatic Eye: COMMON NORMALS: Equal, round and reactive pupils present and EOMs intact bilaterally PUPIL: Yes Equal, round and reactive pupils present Neck/C-Spine: COMMON NORMALS: full ROM, supple and no JVD Lymph: LYMPHATIC: no lymphadenopathy noted Chest: COMMONS NORMALS: normal inspection of the chest and normal palpation of entire chest wall Resp: COMMON NORMALS: normal respiratory effort, No retractions and clear to auscultation bilaterally EFFORT & INSPECTION: Yes able to speak in complete sentences and Yes symmetric chest movement AUSCULTATION: clear to auscultation bilaterally Cardio: COMMON NORMALS: no JVD, regular rate and regular rhythm RATE: r egular rate RHYTHM: regular rhythm GI: COMMON NORMALS: Normal to inspection, nondistended, normoactive bowel sounds present, Soft to palpation and non-tender INSPECTION: Yes normal to inspection PALPATION: Yes Soft to palpation : COMMON NORMALS: Yes no CVA tenderness BLADDER/KIDNEY EXAM: Yes no CVA tenderness Back/Pelvis: COMMON NORMALS: no CVA tenderness Extremity: COMMON NORMALS: normal to inspection and full ROM Neuro: COMMON NORMALS: patient oriented x3, CN's II-XII intact bilaterally, moves all extremities and no focal motor deficits Psych: COMMON NORMALS: mental status grossly normal, Normal thought process present, cooperative and normal affect THOUGHT PROCESS: Normal thought process present Skin: COMMON NORMALS: no rashes or lesions noted GENERAL SKIN EXAM: no rashes or lesions noted Course 2 Vital Signs: Vital signs: Vital Signs Temperature 98.1 F 11/10/23 12:09 Pulse Rate 65 11/10/23 15:37 Respiratory Rate 16 11/10/23 15:37 Blood Pressure 168/82 11/10/23 15:37 Pulse Oximetry 97 11/10/23 15:37 Oxygen Delivery Me thod Room Air 11/10/23 14:00 MDM - Head Injury Medcial Decision Making No focal neurodeficits appreciated patient reports some mild dizziness patient due to patient's symptoms and condition lab work and imaging was obtained this all came back reassuring patient appears to be suffering from a postconcussive headache and mild postconcussive syndrome did advise further follow-up with primary care in 3 to 5 days in which patient advised return the interim if any of her symptoms persist or worse Lab Data 11/10/23 13:25 11/10/23 13:25 Radiology Impressions Chest X-Ray 11/10/23 13:03 IMPRESSION: No acute findings. Head CT 11/10/23 13:03 IMPRESSION: 1. No evidence of intracranial hemorrhage or mass effect. 2. Tiny chronic lacunar infarct RIGHT caudate. Tiny chronic appearing lacunar infarct LEFT owen. 3. Moderate small vessel changes with moderate parenchymal volume loss. 4. No acute intracranial findings. Laboratory Results WBC 7.32 10^3/uL (3.29-11.43) 11/10/23 13: RBC 3.95 10^6/uL (3.85-5.65) 11/10/23 13: Hgb 11.40 g/dL (11.27-16.99) 11/10/23 13:25 Hct 36.1 % (36-47) 11/10/23 13: MCV 91.4 fl (85-98) 11/10/23 13: MCH 28.9 pg (27-33) 11/10/23 13: MCHC 31.6 g/dL (30-55) 11/10/23 13: RDW 14.6 % (12.1-15.1) 11/10/23 13: Plt Count 334 10^3/cmm (157-399) 11/10/23 13: MPV 9.5 fL (7.4-10.4) 11/10/23 13:25 Neut % (Auto) 40.7 % 11/10/23 13:25 Lymph % (Auto) 38.1 % 11/10/23 13:25 Baker % (Auto) 10.7 % 11/10/23 13:25 Eos % (Auto) 8.3 % 11/10/23 13: Baso % (Auto) 1.8 % 11/10/23: Neut # (Auto) 2.98 10^3/uL (1.8-7.7) 11/10/23 13:25 Lymph # (Auto) 2.8 10^3/uL (0.8-4.8) 11/10/23 13:25 Baker # (Auto) 0.8 10^3/uL (0.2-0.9) 11/10/23 13:25 Eos # (Auto) 0.6 10^3/uL (0.0-0.8) 11/10/23 13:25 Baso # (Auto) 0.1 10^3/uL (0.0-0.1) 11/10/23 13:25 Nucleated RBC % (auto) 0 % 11/10/23 13:25 Nucleated RBCs # 0.0 /100WBC 11/10/23 13:25 Sodium 144 mmol/L (136-145) 11/10/23 13:25 Potassium 3.7 mmol/L (3.5-5.1) 11/10/23 13:25 Chloride 106 mmol/L (98-107) 11/10/23 13:25 Carbon Dioxide 30 mmol/L (22-29) H 11/10/23 13:25 Anion Gap 11.7 (5-19) 11/10/23 13:25 BUN 12 mg/dL (8-23) 11/10/23 13:25 Creatinine 0.6 mg/dL (0.5-0.9) 11/10/23 13:25 GFR Calculation 99.7 mL/min (90-130) 11/10/23 13:25 Glucose 87 mg/dL (65-115) 11/10/23 13:25 POC Glucose 85 mg/dL (70-110) 11/10/23 13:30 Calculated Osmolality 297 mOsm/kg (285-295) H 11/10/23 13:25 Calcium 8.7 mg/dL (8.5-10.5) 11/10/23 13:25 Total Bilirubin 0.3 mg/dL (0.15-1.2) 11/10/23 13:25 AST 16 U/L (0-32) 11/10/23 13:25 ALT 21 U/L (0-33) 11/10/23 13:25 Alkaline Phosphatase 104 U/L (35-105) 11/10/23 13:25 C-Reactive Protein 3.4 mg/L (0.0-4.9) 11/10/23 13:25 Total Protein 7.1 g/dL (6.6-8.7) 11/10/23 13:25 Albumin 3.4 g/dL (3.5-5.2) L 11/10/23 13:25 Globulin 3.7 g/dL (1.3-4.6) 11/10/23 13:25 Ethyl Alcohol < 10 mg/dL (0-10) 11/10/23 13:25 All radiology interpretation(s) finalized by discharge Discharge Plan Discharge Patient Disposition: Home Clinical Impression: Post concussive syndrome Fall at home Qualifiers: Encounter type: subsequent encounter Qualified Code(s): W19.XXXD - Unspecified fall, subsequent encounter Chronic post-traumatic headache Qualifiers: Intractability: not intractable Qualified Code(s): G44.329 - Chronic post- traumatic headache, not intractable Condition: Stable Prescriptions: New naproxen 500 mg tablet,delayed release (DR/EC) 500 mg PO BID PRN (Reason: pain) Qty: 20 0RF ondansetron 4 mg tablet,disintegrating 4 mg PO Q6H PRN (Reason: nausea and vomiting) Qty: 20 0RF No Action folic acid 1 mg tablet 1 mg PO BEDTIME atorvastatin 20 mg tablet 20 mg PO QPM celecoxib [Celebrex] 200 mg capsule 200 mg PO DAILY Qty: 30 2RF oxybutynin chloride 5 mg tablet extended release 24hr 5 mg PO DAILY clonazepam [Klonopin] 1 mg tablet 1 mg PO BID Qty: 60 4RF buspirone 10 mg tablet 10 mg PO TID Qty: 270 2RF divalproex [Depakote] 500 mg tablet,delayed release (DR/EC) 500 mg PO BID Qty: 180 2RF sertraline [Zoloft] 25 mg tablet 25 mg PO BID Qty: 180 2RF Rx Instructions: Take one tablet in morning and 3 pm cyclobenzaprine [Flexeril] 10 mg Tablet 10 mg PO TID PRN (Reason: Muscle Spasm) albuterol sulfate 90 mcg/actuation Hfa Aerosol Inhaler 2 puff INHALATION Q4H PRN (Reason: Shortness Of Breath) meclizine 25 mg tablet 25 mg PO QID PRN (Reason: dizziness) Qty: 20 0RF metoprolol tartrate 50 mg tablet 75 mg PO BID enalapril-hydrochlorothiazide 10-25 mg tablet 1 tab PO BID Qty: 60 0RF potassium chloride 20 mEq tablet extended release 20 meq PO QAM Discharge Orders: Discharge ED (Routine); Ordered 11/10/23 Ordered By: Len Dill Referrals: Shae Liu FNP [Primary Care Provider] - 4-7 days Discharge Diet: Advance as tolerated Patient Instructions: Concussion (ED), Fall Prevention for Older Adults (ED), Post Concussion Syndrome (ED) Activity Restrictions/Additional Instructions: Please further follow-up with your primary care doctor in 4 to 7 days days, please take medications as prior prescribed is recommended for you to increase your p.o. intake of fluids to reduce the likelihood of your other additional symptoms please return the interim if any of your symptoms persist or worse Coding Level of Care Code ED Insulation Batting Machine Operator for Neil Li
[2023-11-10 15:37] VITALS: BP 168/82; PULSE 65; RESP 16; O2SAT 97
== END 2023-11-10 15:39 | disposition home or self-care (01) ==
PROVIDERS: Emergency Provider Emergency Medicine; PCP Nurse Practitioner Family
DX: G44.329 Chronic post-traumatic headache, not intractable (principal); R10.9 Unspecified abdominal pain; F17.210 Nicotine dependence, cigarettes, uncomplicated; Z79.899 Other long term (current) drug therapy; W19.XXXD Unspecified fall, subsequent encounter
CPT/HCPCS: 36416; 70450; 71045; 80053; 80307; 82962; 85025; 86140; 96361; 96374; 99285; J1885; J7030

== ENCOUNTER → 2024-01-03 12:15 | Outpatient (BNVA) | payer MEDICARE, SELFPAY | PROVIDERS: PCP Nurse Practitioner Family; Visit Provider Nurse Practitioner Psychiatric/Mental Health | DX: Z79.899 Other long term (current) drug therapy (principal) | CPT/HCPCS: 80053; 80164; 82746 ==

== ENCOUNTER → 2024-06-04 15:33 | Outpatient (BNVA) | payer MEDICARE, SELFPAY | PROVIDERS: PCP Nurse Practitioner Family; Visit Provider Specialist | DX: M17.11 Unilateral primary osteoarthritis, right knee (principal) | CPT/HCPCS: 73560; 73565; 99215 ==

== ENCOUNTER 2024-07-02 13:32 | Outpatient (CLI) | payer MEDICARE, SELFPAY ==
[2024-07-02 13:51] LABS: Basophils # 0.1 10^3/uL (0.0-0.1); Basophils % 1.1 %; Eosinophils # 0.4 10^3/uL (0.0-0.8); Eosinophils % 4.9 %; Hematocrit 38.7 % (36-47); Lymphocytes # 3.4 10^3/uL (0.8-4.8); Lymphocytes % 41.9 %; Mean Corpuscular HGB Conc 33.3 g/dL (30-55); Mean Corpuscular Hemoglobin 29.3 pg (27-33); Mean Corpuscular Volume 87.8 fl (85-98); Mean Platelet Volume 9.6 fL (7.4-10.4); Monocytes # 0.5 10^3/uL (0.2-0.9); Monocytes % 5.9 %; Neutrophils # 3.76 10^3/uL (1.8-7.7); Nucleated Red Blood Cells % 0 %; Platelet Count 277 10^3/cmm (157-399); Red Blood Count 4.41 10^6/uL (3.85-5.65); White Blood Count 8.18 10^3/uL (3.29-11.43)
[2024-07-02 13:52] LABS: Bilirubin Urine Negative (Negative); Blood Urine Negative (Negative); Glucose Urine UA Negative (Normal); Ketones Urine Negative (Negative); Leukocyte Esterase Urine Negative (Negative); Nitrate Urine Negative (Negative); Protein Urine Negative (Negative); Specific Gravity, Urine 1.015 (1.005-1.030); Urine Appearance Clear (CLEAR); Urine Color Yellow (Yellow); pH Urine 7.5 (5-7)
[2024-07-02 13:57] LABS: Add Urine Microscopic? YES; Bacteria Urine None Seen /hpf; Hyaline Casts Urine 0-4 /lpf; RBC Urine 0-2 /hpf (0-2); Squamous Epithelial Cell Urine 0-5 /hpf (0-5); WBC Urine 0-5 /hpf (0-5)
[2024-07-02 14:07] LABS: Alanine Aminotransferase 13 U/L (0-33); Albumin Level 3.9 g/dL (3.5-5.2); Alkaline Phosphatase 87 U/L (35-105); Anion Gap 12.7 (5-19); Aspartate Amino Transferase 11 U/L (0-32); Blood Urea Nitrogen 14 mg/dL (8-23); Calcium 8.9 mg/dL (8.5-10.5); Carbon Dioxide 30 mmol/L (22-29); Chloride 100 mmol/L (98-107); Globulin 2.4 g/dL (1.3-4.6); Glomerular Filtration Rate 99.4 mL/min (90-130); Glucose 105 mg/dL (65-115); Osmolality Calculated 289 mOsm/kg (285-295); Potassium 3.7 mmol/L (3.5-5.1); Sodium 139 mmol/L (136-145); Total Bilirubin 0.2 mg/dL (0.15-1.2); Total Protein 6.3 g/dL (6.6-8.7)
== END 2024-07-02 13:33 | disposition home or self-care (01) ==
LOC: LAB 13:34
PROVIDERS: PCP Nurse Practitioner Family; Visit Provider Specialist
DX: Z01.818 Encounter for other preprocedural examination (principal)
CPT/HCPCS: 20610; 36415; 80053; 81001; 85025; J1100; J2795; J3301

== ENCOUNTER 2024-07-03 15:05 | Outpatient (CLI) | payer MEDICARE, SELFPAY ==
--- NOTE | 2024-07-03 15:00 | CT_ITS ---
WS: [id number] CT RIGHT knee, noncontrast HISTORY: PER [facility] PROTOCOL TECHNIQUE: Protocol for [facility] total knee replacement has been obtained. This includes axial imaging through the RIGHT hip, RIGHT knee and RIGHT ankle. DLP: 957.05 mGy.cm COMPARISON: 06/04/2024 RIGHT hip: Mild narrowing of the hip joint. No destructive bone lesions. No soft tissue mass. RIGHT knee: Moderate tricompartment osteoarthritis. Joint space narrowing and osteophytes. No significant suprapatellar effusion. RIGHT ankle: Negative. CT/CT knee RT [facility] [id number] IMPRESSION: CT imaging provided for [facility] robotic total knee replacement.
== END 2024-07-03 15:06 | disposition home or self-care (01) ==
LOC: RAD 15:05
PROVIDERS: PCP Nurse Practitioner Family; Visit Provider Nurse Practitioner
DX: M17.11 Unilateral primary osteoarthritis, right knee (principal); M24.851 Other specific joint derangements of right hip, not elsewhere classified; M25.761 Osteophyte, right knee; R93.6 Abnormal findings on diagnostic imaging of limbs
CPT/HCPCS: 73700

== ENCOUNTER → 2024-07-04 10:36 | Outpatient (BNVA) | payer MEDICARE, SELFPAY | PROVIDERS: PCP Nurse Practitioner Family; Visit Provider Family Medicine | DX: Z01.818 Encounter for other preprocedural examination (principal) | CPT/HCPCS: 93005 ==

== ENCOUNTER 2024-07-12 10:50 | Observation (INO) | payer MEDICARE, SELFPAY ==
[2024-07-12] VITALS (19 sets, daily range): BP systolic 118–173; BP diastolic 52–89; PULSE 74–899; RESP 14–19; TEMP 36.1–37; O2SAT 92–99; BMI 30.6
--- NOTE | 2024-07-12 06:05 | ANES.PREANE2 ---
Pre-Anesthetic Assessment Height/Weight: Height 5 ft 3 in Preop Diagnosis: Knee arthritis Operation Date: 07/12/24 07:00 Proposed Procedures p Lex Robot Total Knee Arthroplasty(Right) - Raina Nash MD Was Beta Cathi taken within 24 hours: Yes Was Clonidine taken within 24 hours: N/A Social Tobacco and No alcohol Exam alert, oriented x 3, clear to auscultation bilaterally and regular rate & rhythm Airway Submandibular: within normal limits Cervical ROM: within normal limits Mallampati: Class II Comments: Comments: Edentulous Anesthetic Plan ASA status: 3 Anesthesia: General Other: No prior issues with anesthesia in the past last NPO since yesterday evening Prior CVA history, October 2023. Right upper extremity weakness. Patient fell on right side and hurt her right shoulder last year. She asks us to be careful with her shoulder Current smoker History of hypertension on enalapril?HCTZ and metoprolol. Preop BP 162/79 Patient has a history of bipolar 1 disorder Labs 07/02/2024 reviewed and acceptable for procedure today EKG showing sinus bradycardia Plan for general anesthesia Risk of > 500 ml blood loss (7ml/kg in children): Yes, adequate IV access and fluids planned Medications/Allergies Home Medications ?Medication ?Instructions ?Recorded ?Confirmed ?Last Taken ?Type atorvastatin 20 mg tablet 20 mg PO QPM 07/22/20 07/11/24 07/10/24 History folic acid 1 mg tablet 1 mg PO BEDTIME 07/22/20 07/11/24 07/10/24 History cyclobenzaprine 10 mg tablet 10 mg PO TID PRN Muscle Spasm 03/31/21 07/11/24 07/10/24 History meclizine 25 mg tablet 25 mg PO QID PRN dizziness #20 tabs 03/31/21 07/11/24 Unknown Rx enalapril 10 1 tab PO BID #60 tabs 07/19/22 07/11/24 07/10/24 Rx mg-hydrochlorothiazide 25 mg tablet metoprolol tartrate 50 mg tablet 75 mg PO BID 07/28/22 07/11/24 07/12/24 History oxybutynin chloride 5 mg 5 mg PO DAILY 07/28/22 07/11/24 07/12/24 History tablet,extended release 24 hr potassium chloride 20 mEq 20 meq PO QAM 03/19/23 07/11/24 07/09/24 History tablet,extended release buspirone 10 mg tablet 10 mg PO TID #270 tabs 04/17/24 07/11/24 07/10/24 Rx divalproex 500 mg tablet,delayed 500 mg PO BID #180 tabs 04/17/24 07/11/24 07/10/24 Rx release (Depakote) sertraline 25 mg tablet (Zoloft) 25 mg PO BID #180 tabs 04/17/24 07/11/24 07/10/24 Rx celecoxib 200 mg capsule (Celebrex) 200 mg PO DAILY pain #30 caps 07/02/24 07/11/24 06/30/24 Rx clonazepam 1 mg tablet (Klonopin) 1 mg PO BID anxiety/panic attacks 07/11/24 07/11/24 07/12/24 History Allergies Allergy/AdvReac Type Severity Reaction Status Date / Time ciprofloxacin (From Cipro) Allergy Severe Unknown Verified 07/11/24 09:16 morphine Allergy Unknown Verified 07/11/24 09:16 oxycodone (From Percocet) Allergy ALGY-Swell Verified 07/11/24 09:16 Lip/Tongue/Throat [facility] Anesthesia Medical History Psychiatric care Fall at home Right shoulder pain Right rotator cuff tendonitis Hand pain Nicotine dependence, cigarettes, uncomplicated Bipolar 1 disorder, manic, full remission Generalized anxiety disorder Social History Smoking and tobacco/nicotine status: current every day tobacco/nicotine user cigarettes Packs smoked per day: 0.5 Quit status (tobacco/nicotine): has tried quititng Data Anesthesia Cardiac Studies: Sestamibi Stress Test (Cardiology) 08/23/22
[2024-07-12] MEDS: sodium chloride 0.9% 1,000 ML 30 ML IV (06:28)
[2024-07-12] MEDS: famotidine 20 mg/2 mL INJ IVP (06:29)
[2024-07-12] MEDS: gabapentin 300 mg Capsule PO (06:29)
[2024-07-12] MEDS: CELEcoxib 200 mg Capsule 400 MG PO (06:29)
[2024-07-12] MEDS: acetaminophen 1,000 MG/100 ML PIGGYBACK 400 MG IV ×3 (06:32→22:39)
--- NOTE | 2024-07-12 07:00 | W.PM.OPSUD ---
Surgery/Procedure H&P Update DATE OF PROCEDURE: July 12, 2024 DATE H&P PERFORMED: 06/22/24 H&P UPDATE INFORMATION: I have reviewed H&P completed within last 30 days, I have examined patient prior to procedure, No changes to prior documentation and H&P is in [facility] EMR on date indicated PREOP DIAGNOSIS: Knee arthritis PLANNED PROCEDURE: Operation Date: 07/12/24 07:00 Proposed Procedures p Lex Robot Total Knee Arthroplasty(Right) - Raina Nash MD Related Problem List Diagnoses (1) Primary osteoarthritis of right knee:
[2024-07-12] MEDS: ceFAZolin 2,000 mg SDV 2000 MG IVP ×3 (07:06→22:39)
[2024-07-12] MEDS: tranexamic acid 1,000 mg/10mL SDV 1000 MG IV (07:07)
[2024-07-12] MEDS: VANCOMYCIN ADD-Vantage 1,000 MG VIAL 1000 MG XX (08:04)
[2024-07-12] MEDS: BUPivacaine liposome 13.3 mg/mL SDV 20 mL 266 MG INFILTRATI (08:05)
[2024-07-12] MEDS: ceFAZolin 1,000 mg SDV 2000 MG IRRIGATION (08:05)
[2024-07-12] MEDS: BUPivacaine 0.5% INJ 30 mL 20 ML XX (08:05)
--- NOTE | 2024-07-12 10:32 | PM.OP ---
Operative Report Date of procedure: July 12, 2024 Pre-op diagnosis: Primary osteoarthritis right knee Post-op diagnosis: Primary osteoarthritis right knee Post-op findings: Severe degenerative osteoarthritis of the right knee with flexion contracture and varus deformity Procedure done: Right total knee arthroplasty with Lex guidance Implants: The [place] total knee system with a size 3 triathlon beaded cruciate retaining femur right, a triathlon titanium tibial component size 2 beaded, a triathlon X3 tibial bearing CS insert size 2 X 9 mm and a beaded triathlon titanium asymmetric patella size 29 x 9 mm Specimens removed/disposition: Bone, disposed of Pathology: None Surgeon: Raina Nash MD Extractor Operator Helper: Dea Salas, nurse practitioner who services were required for retraction, exposure, closure, and completion of the surgical procedure Anesthesia: General (Per LMA converted to ET tube, ASA 3) Estimated blood loss (mL): 50 Tourniquet time (min): 0 (Not utilized) IV fluids (mL): 1,400 Urine output (mL): 300 Complications: None Findings: Severe degenerative osteoarthritis of the right knee Condition: stable Disposition: PACU (Then admitted under observation status for postoperative rehabilitation and pain management) Brief History: This 69-year-old woman presented today for right total knee arthroplasty. The patient had severe right knee pain present for greater than a year. She was frequently falling secondary to her knee and reported stiffness with limited range of motion and instability. She was concerned every time she walked that her knee would give way. It was also aggravated by sitting for long periods of time. She did try anti-inflammatory with only mild improvement. After evaluation and discussion of the x-rays, plans were made for total knee arthroplasty. Risks and complications were discussed with the patient and consents were signed. Questions were answered. Procedure: The patient was brought to the operating theater, and after undergoing adequate general intubated anesthesia, ASA 3, the right lower extremity was prepped with DuraPrep and draped in usual fashion following placement of a tourniquet high on the leg. The leg was then draped free. Tourniquet was placed on the leg but was not elevated throughout the surgical procedure. Following exposure of the site of surgery, a surgical pause was performed. At the time of the surgical pause, we confirmed the site and side of surgery. Additionally, we confirmed the appropriate and timely administration of preoperative antibiotics, Ancef 2 g. Tranexamic acid 1 g was given preoperatively and will be given again on the floor for 1 dose postoperatively. The availability of equipment was confirmed, and the patient's identity was verbalized as well. Following the surgical pause, an incision was made centering over the patella continuing proximally and distally as necessary to allow access to the knee joint. Dissection continued through skin and soft tissues using a scalpel. Hemostasis was obtained using electrocautery. The skin incision was followed by a median parapatellar arthrotomy. The leg was extended and the patella was able to be displaced laterally. Appropriate arrays and markers were placed in appropriate position for use of the Lex. Preoperative planning had been accomplished and was discussed in detail with the Lex mortician supplies sales representative. Intraoperative mapping of the femur and tibia was accomplished after the arrays were placed. Once we had accomplished the Lex mapping, we began the appropriate resections for placement of the prosthesis. The plan was for a cruciate retaining right total knee arthroplasty. Once appropriate mapping had been accomplished retraction was established using manual retraction by the [facility] leg positioner and retractors. The knee was evaluated. There was eburnation particularly of the medial femoral condyle.? There were large osteophytes circumferentially about the trochlear groove as well as the patella and medial tibial plateau.? After balancing the knee within the Lex program, the appropriate bone resection was accomplished. Initial resection was accomplished on the tibia followed by appropriate resections on the femur. We had performed a medial release at the beginning of the procedure to allow for placement of the array. Proximal tibia was evaluated and it was felt that appropriate size for the tibia was a size 2. A trial reduction was accomplished after osteophytes had been removed, the medial and lateral meniscus were excised, and bone cuts had been accomplished as above. We had removed the anterior cruciate ligament at the beginning of the case and preserved the posterior cruciate ligament. Trial reduction was accomplished with a size 3 femoral cruciate retaining component and a size 2 CS tibial bearing insert which was 9 mm in thickness. Initial trial reduction demonstrated that the knee maintained a flexion contracture, so the proximal tibia was initially recut for 1 more millimeter and subsequently a second millimeter to allow balancing of the knee both in flexion and extension. With this revision, the components were noted to fit nicely, extension was excellent, and stability was excellent as well. Trial components were removed after the femur had been drilled. Prior to removal of the tibial tray which had been pinned in position with appropriate rotation as determined by the Lex plan, we broached the tibia. Subsequently, the 4 drill holes were made for the prosthetic component. All trial components had been removed, and the wound was irrigated. Plans were made for insertion of the prosthetic components. Prior to this, the patella was manually prepared. After resection of the articular surface with the jigging system, it was measured and measured a 29 mm patella. We resected approximately 8 mm of patella, and patellar height was restored with the patellar component. Once again, the wound was irrigated. The Tritanium tibia was impacted into position.? The beaded femur was then impacted into position in a cementless fashion. The CS tibial insert was placed prior to placement of the femoral component. The patella was pressed into position with a patellar clamp.? Exparel was injected about the components deep and superficially. The knee was then copiously irrigated with betadine and saline and suctioned dry. Attention was then directed to closure. Closure was accomplished with 0 Vicryl in the fascial tissues followed by a running #1 strata fix 1 from proximal to distal and 1 from distal to proximal.? This was followed by Surgiflo and vancomycin powder. Subcutaneous tissues were closed with 2-0 Monocryl strata fix, and the skin was closed in a running subcuticular fashion with 3-0 Monocryl strata fix.? A sterile dressing was then placed consisting of Dermabond Prineo, OpSite, sterile soft roll including over the foot, and an Imer wrap. The patient was returned the Recovery Room in a satisfactory condition. X-rays were obtained and reviewed there.? The patient will be discharged to the floor for postoperative rehabilitation and pain management. Related Problem List Diagnoses (1) Primary osteoarthritis of right knee:
--- NOTE | 2024-07-12 10:40 | XR_ITS ---
WS: [id number] XR knee RT 1-2V [id number] REASON FOR EXAM: POST OP FINDINGS: Total right knee arthroplasty. Components of the arthroplasty are intact and in proper position and alignment. No focal bone abnormality. XR/XR knee RT 1-2V [id number] IMPRESSION: Total right knee arthroplasty without abnormality.
--- NOTE | 2024-07-12 11:28 | ANE.PACU2 ---
Inpatient post-anesthesia follow up: Airway intact: Yes Vital signs: Temperature 98.6 F Pulse Rate 80 Respiratory Rate 16 Blood Pressure 155/79 Pulse Oximetry 93 Oxygen Delivery Me thod Nasal Cannula Oxygen Flow Rate 2 Fraction of Inspir ed Oxygen Hydration adequate: Yes Nausea and vomiting: No Pain level: 1 Mental status: Baseline
[2024-07-12] MEDS: BuSPIRONE 10 mg Tablet PO ×2 (14:48→19:51)
[2024-07-12] MEDS: HYDROcodone-acetaminophen 5-325 mg Tablet PO (15:47)
[2024-07-12] MEDS: calcium carbonate 500 mg Chew Tablet 1000 MG PO (18:26)
[2024-07-12] MEDS: sennosides-docusate Tablet 2 TAB PO (18:26)
[2024-07-12] MEDS: mupirocin oint 22 gm 1 APPLIC NASAL (18:26)
[2024-07-12] MEDS: metoprolol tartrate 50 mg Tablet 75 MG PO (18:26)
[2024-07-12] MEDS: CLONazepam 1 mg Tablet PO (18:27)
[2024-07-12] MEDS: atorvastatin 40 mg Tablet PO (18:27)
[2024-07-12] MEDS: divalproex DR 500 mg Tablet PO (18:27)
[2024-07-12] MEDS: iron polysaccharide complex 150 mg Capsule PO (18:27)
[2024-07-12] MEDS: sertraline 50 mg Tablet 25 MG PO (18:27)
[2024-07-12] MEDS: chlorhexidine gluconate 0.12% Btl 473 mL 30 ML MUCOUS MEM ×2 (18:30→19:51)
[2024-07-12] MEDS: folic acid 1 mg Tablet PO (19:51)
[2024-07-12] MEDS: cyclobenzaprine 10 mg Tablet PO (19:51)
[2024-07-12] MEDS: ondansetron 2 mg/ML SDV 2 mL 4 MG IVP (23:04)
[2024-07-13] MEDS: HYDROcodone-acetaminophen 5-325 mg Tablet PO ×2 (04:19→12:18)
[2024-07-13 04:30] VITALS: BP 178/92; PULSE 85; RESP 15; TEMP 36.3; O2SAT 95
--- NOTE | 2024-07-13 04:33 | PC.NURSE ---
pt pain pt informed this nurse she had a headache. this nurse informed pt care nurse.
[2024-07-13 04:37] LABS: Basophils # 0.1 10^3/uL (0.0-0.1); Basophils % 0.4 %; Eosinophils % 0.1 %; Hematocrit 33.6 % (36-47); Lymphocytes # 2.5 10^3/uL (0.8-4.8); Lymphocytes % 22.1 %; Mean Corpuscular Hemoglobin 29.8 pg (27-33); Mean Corpuscular Volume 90.1 fl (85-98); Mean Platelet Volume 9.7 fL (7.4-10.4); Monocytes # 1.1 10^3/uL (0.2-0.9); Monocytes % 9.7 %; Neutrophils # 7.62 10^3/uL (1.8-7.7); Neutrophils % 67.3 %; Nucleated Red Blood Cells % 0 %; Platelet Count 316 10^3/cmm (157-399); Red Blood Count 3.73 10^6/uL (3.85-5.65); Red Cell Distribution Width 13.6 % (12.1-15.1); White Blood Count 11.33 10^3/uL (3.29-11.43)
[2024-07-13 05:04] LABS: Anion Gap 14.4 (5-19); Blood Urea Nitrogen 16 mg/dL (8-23); Calcium 8.6 mg/dL (8.5-10.5); Carbon Dioxide 27 mmol/L (22-29); Chloride 102 mmol/L (98-107); Creatinine Clr Calc Pharmacy 66.7552; Glomerular Filtration Rate 99.4 mL/min (90-130); Glucose 121 mg/dL (65-115); Osmolality Calculated 292 mOsm/kg (285-295); Potassium 3.4 mmol/L (3.5-5.1); Sodium 140 mmol/L (136-145)
[2024-07-13 06:00] VITALS: BMI 30.6
[2024-07-13] MEDS: potassium chloride ER 20 mEq Tablet PO (06:04)
[2024-07-13] MEDS: ceFAZolin 2,000 mg SDV 2000 MG IVP (06:04)
[2024-07-13] MEDS: acetaminophen 1,000 MG/100 ML PIGGYBACK 400 MG IV (06:04)
[2024-07-13 07:26] VITALS: BP 155/68; PULSE 88; RESP 18; TEMP 36.7; O2SAT 98
[2024-07-13] MEDS: sertraline 50 mg Tablet 25 MG PO (09:03)
[2024-07-13] MEDS: metoclopramide 5 mg/mL SDV 2 mL 10 MG IV (09:03)
[2024-07-13] MEDS: cyclobenzaprine 10 mg Tablet PO (09:03)
[2024-07-13] MEDS: calcium carbonate 500 mg Chew Tablet 1000 MG PO (09:03)
[2024-07-13] MEDS: BuSPIRONE 10 mg Tablet PO (09:04)
[2024-07-13] MEDS: divalproex DR 500 mg Tablet PO (09:04)
[2024-07-13] MEDS: hydroCHLOROthiazide 25 mg Tablet PO (09:04)
[2024-07-13] MEDS: metoprolol tartrate 50 mg Tablet 75 MG PO (09:05)
[2024-07-13] MEDS: multivitamin therapeutic Tablet 1 TAB PO (09:06)
[2024-07-13] MEDS: sennosides-docusate Tablet 2 TAB PO (09:06)
[2024-07-13] MEDS: oxybutynin chloride XL 5 MG TABLET PO (09:06)
[2024-07-13] MEDS: CLONazepam 1 mg Tablet PO (09:07)
[2024-07-13] MEDS: CELEcoxib 200 mg Capsule PO (09:07)
[2024-07-13] MEDS: cholecalciferol (vitamin D3) 1,000 unit Tablet 1000 UNIT PO (09:07)
[2024-07-13] MEDS: lisinopril 10 mg Tablet PO (09:08)
[2024-07-13] MEDS: iron polysaccharide complex 150 mg Capsule PO (09:08)
[2024-07-13] MEDS: aspirin 325 mg EC Tablet PO (09:08)
[2024-07-13] MEDS: mupirocin oint 22 gm 1 APPLIC NASAL (09:08)
[2024-07-13] MEDS: chlorhexidine gluconate 0.12% Btl 473 mL 30 ML MUCOUS MEM ×2 (09:09→13:19)
[2024-07-13 12:00] VITALS: BP 185/89; PULSE 77; RESP 18; TEMP 36.6; O2SAT 97
[2024-07-13] MEDS: pantoprazole DR 40 mg Tablet PO (13:19)
--- NOTE | 2024-07-13 13:55 | PM.DCS ---
Discharge Providers Date of Admission: 07/12/24 10:50 Date of Discharge: July 13, 2024 Attending Provider at Admission: Raina Nash MD Attending Provider at Discharge: Raina Nash MD Primary Care Provider: ANNA Stoddard Diagnoses at Discharge Discharge Diagnosis (1) Primary osteoarthritis of right knee: Status: Acute (2) Status post total left knee replacement not using cement: Status: Acute Permanent problem details: Date of procedure: July 12, 2024 Diagnosis: Primary osteoarthritis right knee Procedure done: Right total knee arthroplasty with Lex guidance Implants: The [place] total knee system with a size 3 triathlon beaded cruciate retaining femur right, a triathlon titanium tibial component size 2 beaded, a triathlon X3 tibial bearing CS insert size 2 X 9 mm and a beaded triathlon titanium asymmetric patella size 29 x 9 mm Reason for Visit Reason for Visit: M17.11 Brief History: This 69-year-old woman presented today for right total knee arthroplasty. The patient had severe right knee pain present for greater than a year. She was frequently falling secondary to her knee and reported stiffness with limited range of motion and instability. She was concerned every time she walked that her knee would give way. It was also aggravated by sitting for long periods of time. She did try anti-inflammatory with only mild improvement. After evaluation and discussion of the x-rays, plans were made for total knee arthroplasty. Risks and complications were discussed with the patient and consents were signed. Questions were answered. Hospital Course Hospital Course Patient was admitted under observation status following total knee arthroplasty. She tolerated this well. There was no evidence of DVT or other complication. The patient worked with physical therapy. She was felt safe for discharge to home. She will have home physical therapy and will follow-up in the office as scheduled. Physical Exam Const: COMMON NORMALS: no acute distress, average body habitus, patient oriented x3 and alert GENERAL APPEARANCE: cooperative and comfortable ORIENTATION/CONSCIOUSNESS: Yes awake HENMT: COMMON NORMALS: normocephalic and atraumatic HEAD & SCALP: normocephalic and atraumatic Eye: GENERAL EYE: appearance normal, both eyes and all related structures Chest: COMMONS NORMALS: normal inspection of the chest Resp: COMMON NORMALS: normal respiratory effort EFFORT & INSPECTION: Yes able to speak in complete sentences and Yes symmetric chest movement Extremity: RIGHT LOWER EXTREMITY: Yes knee joint (Large outer dressing is removed.) Right knee: Yes inspection (There is no significant ecchymosis.), Yes palpation (Nontender to palpation.), Yes ROM (Not evaluated.) and Yes neurovascular exam (Intact distally with no evidence of DVT.) Neuro: COMMON NORMALS: patient oriented x3 SENSORIUM/ORIENTATION: Yes alert Psych: COMMON NORMALS: mental status grossly normal APPEARANCE: Yes grossly normal ATTITUDE: Yes calm and Yes engaged ATTENTION/CONCENTRATION: Yes attention grossly intact Skin: COMMON NORMALS: no rashes or lesions noted GENERAL SKIN EXAM: no rashes or lesions noted Urinary Catheter Management: Armstrong: Cath Placed During This Visit: yes, but has since been removed by the nurse Reason for Continuing Indwelling Catheter: Decision to DC Catheter Urinary Catheter Date of Insertion: 07/12/24 Urinary Catheter Time of Insertion: 07:25 Date Urinary Catheter Removed: 07/13/24 Time Urinary Catheter Discontinued: 06:20 Discharge Data Studies Completed and Pending Completed Studies During Hospitalization Category Date Time Status XR knee RT 1-2V 28688 Routine Exams 07/12/24 10:40 Completed Radiology Impressions Knee X-Ray 07/12/24 10:40 IMPRESSION: Total right knee arthroplasty without abnormality. Laboratory Results WBC 11.33 10^3/uL (3.29-11.43) 07/13/24 04:03 RBC 3.73 10^6/uL (3.85-5.65) L 07/13/24 04:03 Hgb 11.10 g/dL (11.27-16.99) L 07/13/24 04:03 Hct 33.6 % (36-47) L 07/13/24 04:03 MCV 90.1 fl (85-98) 07/13/24 04:03 MCH 29.8 pg (27-33) 07/13/24 04:03 MCHC 33.0 g/dL (30-55) 07/13/24 04:03 RDW 13.6 % (12.1-15.1) 07/13/24 04:03 Plt Count 316 10^3/cmm (157-399) 07/13/24 04:03 MPV 9.7 fL (7.4-10.4) 07/13/24 04:03 Neut % (Auto) 67.3 % 07/13/24 04:03 Lymph % (Auto) 22.1 % 07/13/24 04:03 Jewell % (Auto) 9.7 % 07/13/24 04:03 Eos % (Auto) 0.1 % 07/13/24 04:03 Baso % (Auto) 0.4 % 07/13/24 04:03 Neut # (Auto) 7.62 10^3/uL (1.8-7.7) 07/13/24 04:03 Lymph # (Auto) 2.5 10^3/uL (0.8-4.8) 07/13/24 04:03 Jewell # (Auto) 1.1 10^3/uL (0.2-0.9) H 07/13/24 04:03 Eos # (Auto) 0.0 10^3/uL (0.0-0.8) 07/13/24 04:03 Baso # (Auto) 0.1 10^3/uL (0.0-0.1) 07/13/24 04:03 Nucleated RBC % (auto) 0 % 07/13/24 04:03 Nucleated RBCs # 0.0 /100WBC 07/13/24 04:03 Sodium 140 mmol/L (136-145) 07/13/24 04:03 Potassium 3.4 mmol/L (3.5-5.1) L 07/13/24 04:03 Chloride 102 mmol/L (98-107) 07/13/24 04:03 Carbon Dioxide 27 mmol/L (22-29) 07/13/24 04:03 Anion Gap 14.4 (5-19) 07/13/24 04:03 BUN 16 mg/dL (8-23) 07/13/24 04:03 Creatinine 0.6 mg/dL (0.5-0.9) 07/13/24 04:03 GFR Calculation 99.4 mL/min (90-130) 07/13/24 04:03 Glucose 121 mg/dL (65-115) H 07/13/24 04:03 Calculated Osmolality 292 mOsm/kg (285-295) 07/13/24 04:03 Calcium 8.6 mg/dL (8.5-10.5) 07/13/24 04:03 Vitals Last Vital Signs Temp 97.9 F 07/13/24 12:00 Pulse 77 07/13/24 12:00 Resp 18 07/13/24 12:00 BP 185/89 07/13/24 12:00 Pulse Ox 97 07/13/24 12:00 O2 Del Method Room Air 07/13/24 12:00 O2 Flow Rate 2 07/12/24 12:32 Discharge Plan Discharge Patient Disposition: Home Health Service Condition: Stable Prescriptions: New hydrocodone-acetaminophen 5-325 mg Tablet 1 - 2 tab PO Q4H PRN (Reason: Pain) 7 Days Qty: 40 0RF acetaminophen 500 mg Tablet 1,000 mg PO Q8H 15 Days Qty: 90 0RF aspirin 325 mg Tablet,Delayed Release (Dr/Ec) 325 mg PO DAILY 30 Days Qty: 30 0RF Continued folic acid 1 mg tablet 1 mg PO BEDTIME atorvastatin 20 mg tablet 20 mg PO QPM celecoxib [Celebrex] 200 mg capsule 200 mg PO DAILY Qty: 30 2RF oxybutynin chloride 5 mg tablet extended release 24hr 5 mg PO DAILY buspirone 10 mg tablet 10 mg PO TID Qty: 270 2RF sertraline [Zoloft] 25 mg tablet 25 mg PO BID Qty: 180 2RF Rx Instructions: Take one tablet in morning and 3 pm divalproex [Depakote] 500 mg tablet,delayed release (DR/EC) 500 mg PO BID Qty: 180 2RF cyclobenzaprine 10 mg Tablet 10 mg PO TID PRN (Reason: Muscle Spasm) meclizine 25 mg tablet 25 mg PO QID PRN (Reason: dizziness) Qty: 20 0RF metoprolol tartrate 50 mg tablet 75 mg PO BID enalapril-hydrochlorothiazide 10-25 mg tablet 1 tab PO BID Qty: 60 0RF potassium chloride 20 mEq tablet extended release 20 meq PO QAM clonazepam [Klonopin] 1 mg tablet 1 mg PO BID Rx Instructions: May take one tablet twice per day as needed for anxiety/panic attacks Discharge Orders: Discharge Order (Routine); Ordered 07/13/24 Ordered By: Raina Nash Referrals: [facility] [Outside] Raina Nash MD [Physician] - 07/25/24 11:00 am Discharge Diet: Advance as tolerated and Usual diet Discharge Activity: Increase activity as tolerated, Limit activity as instructed, Use walker/crutches as instructed and As per PT/OT instructions Patient Instructions: Hydrocodone (By mouth), Acute Wound Care (DC), Precautions after Total Joint Replacement Surgery (DC), Total Knee Replacement (DC), Opioid Safety, Post Anesthesia Care Activity Restrictions/Additional Instructions: Ice to right knee. Range of motion and strengthening per physical therapy. You may weight-bear as tolerated. Use walker and crutches as advised. Discharge Attestations Time Spent in Discharge Care*: greater than 30 min Specific Discharge Activities: educating patient, documenting/other paperwork and evaluating patient/reviewing data Quality Metrics Clinical Quality Measures [ No reported AMI, CVA or VTE this stay] Coding Level of Care Code Acute Code for Chg Fwd Diagnoses Primary osteoarthritis of right knee M17.11 Status post total left knee replacement not using cement Z96.652
--- NOTE | 2024-07-13 16:32 | PC.NURSE ---
Discharge Note Patient discharged to home via private vehicle accompanied by son. Discharge instructions reviewed with patient and/or [employer] representative. Mobile pharmacy medications and/or prescriptions provided. Belongings/home medications returned. Was present with Dr. Nash when she educated patient to avoid acetaminophen use in concurrance with opiod to avoid overdosing with more than 3,000mg a day. Patient understood
[2024-07-13 16:43] VITALS: BP 185/89; PULSE 77; RESP 18; TEMP 36.6; O2SAT 97
== END 2024-07-13 15:50 | disposition home health service (06) ==
LOC: MEDSURG 10:52
PROVIDERS: Admitting Provider Specialist; PCP Nurse Practitioner Family; Visit Provider Specialist
PROC: 8E0Y0CZ Robotic Assisted Procedure of Lower Extremity, Open Approach (ICD-10-PCS; CPT 27447; principal; 2024-07-12 07:00)
DX: M17.11 Unilateral primary osteoarthritis, right knee (principal); M24.561 Contracture, right knee; M21.161 Varus deformity, not elsewhere classified, right knee; I10 Essential (primary) hypertension; Z79.899 Other long term (current) drug therapy; Z86.73 Personal history of transient ischemic attack (TIA), and cerebral infarction without residual deficits; Z88.5 Allergy status to narcotic agent; F17.210 Nicotine dependence, cigarettes, uncomplicated; Z91.81 History of falling; F41.1 Generalized anxiety disorder; F31.74 Bipolar disorder, in full remission, most recent episode manic
CPT/HCPCS: 27447; 36415; 51702; 73560; 80048; 85025; 94002; 97110; 97116; 97161; 97165; 97530; A4216; C1776; C9290; G0378; J0131; J0360; J0690; J1171; J2250; J2405; J2704; J2710; J2765; J3010; J3370; J3490; J7030

== ENCOUNTER 2024-07-16 14:46 | Emergency (ER) | payer MEDICARE, SELFPAY ==
[2024-07-16] VITALS (8 sets, daily range): BP systolic 152–233; BP diastolic 102–129; PULSE 82–133; RESP 12–18; TEMP 36.8; O2SAT 98–100
--- NOTE | 2024-07-16 15:49 | W.ED.ABDPA2 ---
Documented by User: EROS York 07/16/24 16:42 HPI - Abdominal Pain General: Chief Complaint: Abdominal Pain Stated Complaint: abd pain, n,v Time Seen by Provider: 07/16/24 15:38 Source: patient Mode of arrival: ambulatory Limitations: no limitations History of Present Illness: 69-year-old female presents to the ER complaining of abdominal pain. Patient states the symptoms started last night. Patient states she has been vomiting and nauseous since yesterday. Patient states she has been constipated since she had knee surgery that was on July 12, 2024. Her last bowel movement was noted on July 12, 2024. She has been taking her narcotic pain medication as scheduled. She has not been taking this with a laxative or stool softener. Patient denies hematochezia, chest pain, palpitations, or dysuria. No other complaints at this time. MD elicited complaint: abdominal pain Pertinent past history: constipation Onset (ago): day(s) Pain Consistency: constant Location: Diffuse Severity: moderate Quality: cramping, aching and fullness Radiation: none Migration to: no migration Exacerbating factors: nothing Relieving factors: nothing Context: recent surgery/procedure Associated Symptoms: Reports change in bowel habits, constipation, nausea and vomiting; Denies chills, dysuria, fever(s) and hematemesis Related Data Home Medications ?Medication ?Instructions ?Recorded ?Confirmed atorvastatin 20 mg tablet 20 mg PO QPM 07/22/20 07/16/24 folic acid 1 mg tablet 1 mg PO BEDTIME 07/22/20 07/16/24 cyclobenzaprine 10 mg tablet 10 mg PO TID PRN Muscle Spasm 03/31/21 07/16/24 metoprolol tartrate 50 mg tablet 75 mg PO BID 07/28/22 07/16/24 oxybutynin chloride 5 mg 5 mg PO DAILY 07/28/22 07/16/24 tablet,extended release 24 hr potassium chloride 20 mEq 20 meq PO QAM 03/19/23 07/16/24 tablet,extended release clonazepam 1 mg tablet (Klonopin) 1 mg PO BID anxiety/panic attacks 07/11/24 07/16/24 Previous Rx's ?Medication ?Instructions ?Recorded enalapril 10 1 tab PO BID #60 tabs 07/19/22 mg-hydrochlorothiazide 25 mg tablet buspirone 10 mg tablet 10 mg PO TID #270 tabs 04/17/24 divalproex 500 mg tablet,delayed 500 mg PO BID #180 tabs 04/17/24 release (Depakote) sertraline 25 mg tablet (Zoloft) 25 mg PO BID #180 tabs 04/17/24 celecoxib 200 mg capsule (Celebrex) 200 mg PO DAILY pain #30 caps 07/02/24 acetaminophen 500 mg tablet 1,000 mg (2 x 500 mg) PO Q8H 15 07/13/24 days #90 tabs aspirin 325 mg tablet,delayed 325 mg PO DAILY 30 days #30 tabs 07/13/24 release hydrocodone 5 mg-acetaminophen 325 1 - 2 tab PO Q4H PRN Pain 7 days 07/13/24 mg tablet #40 tabs polyethylene glycol 3350 17 4 g PO DAILY #119 grams 07/16/24 gram/dose oral powder (Miralax) Allergies Allergy/AdvReac Type Severity Reaction Status Date / Time ciprofloxacin (From Cipro) Allergy Severe Unknown Verified 07/11/24 09:16 morphine Allergy Unknown Verified 07/11/24 09:16 oxycodone (From Percocet) Allergy ALGY-Swell Verified 07/11/24 09:16 Lip/Tongue/Throat Review of Systems Const: Denies: fever(s), chills, body aches, fatigue or malaise Card: Denies: chest pain Resp: Denies: dyspnea GI: Reports: abdominal pain, nausea, vomiting, constipation and change in bowel habits; Denies: hematemesis : Denies: flank pain or dysuria Musc: Reports: joint swelling (R knee-recent total knee replacement); Denies: neck pain PFSH ED PFSH: Medical History Psychiatric care Fall at home Right shoulder pain Right rotator cuff tendonitis Hand pain Nicotine dependence, cigarettes, uncomplicated Bipolar 1 disorder, manic, full remission Generalized anxiety disorder Social History Smoking and tobacco/nicotine status: current every day tobacco/nicotine user cigarettes Packs smoked per day: 0.5 Quit status (tobacco/nicotine): has tried quititng Physical Exam Const: COMMON NORMALS: no acute distress, average body habitus, patient oriented x3, no limitations, healthy appearing and well nourished GENERAL APPEARANCE: cooperative OTHER: hypertensive; states she did take her home meds this AM Resp: COMMON NORMALS: normal respiratory effort and clear to auscultation bilaterally AUSCULTATION: clear to auscultation bilaterally Cardio: COMMON NORMALS: regular rate and regular rhythm RATE: regular rate RHYTHM: regular rhythm GI: COMMON NORMALS: Normal to inspection, nondistended, normoactive bowel sounds present, Soft to palpation, No hepatosplenomegaly present and no masses INSPECTION: Yes normal to inspection AUSCULTATION: Yes normoactive bowel sounds PALPATION: Yes Soft to palpation, Yes Tenderness to palpation present (GI) (diffusely), No Guarding due to palpation present (GI), No Rigid due to palpation and Yes No hepatosplenomegaly present : COMMON NORMALS: Yes no CVA tenderness BLADDER/KIDNEY EXAM: Yes no CVA tenderness Back/Pelvis: COMMON NORMALS: no CVA tenderness and thoracic and lumbar spine normal to inspection Extremity: GENERAL: Yes normal exam except as noted OTHER: Patient has edema and ecchymosis involving her right lower extremity/knee consistent with postoperative changes; no erythema or significant warmth or evidence for infection; surgical dressing in place and appears clean Neuro: COMMON NORMALS: patient oriented x3, moves all extremities, no focal motor deficits and no sensory deficits noted Course Vital Signs: Vital signs: Vital Signs Temperature 98.3 F 07/16/24 14:46 Pulse Rate 111 H 07/16/24 20:11 Respiratory Rate 18 07/16/24 20:11 Blood Pressure 188/109 07/16/24 20:11 Pulse Oximetry 100 07/16/24 20:11 Oxygen Delivery Me thod Room Air 07/16/24 20:11 MDM - Abdominal Pain Lab Data 07/16/24 15:12 07/16/24 15:12 Labs/Radiology: Radiology Impressions Abdomen/Pelvis CT 07/16/24 16:12 IMPRESSION: 1. No evidence of acute abnormality in the abdomen or pelvis. 2. Mild wall thickening of the distal esophagus, which may reflect esophagitis. Laboratory Results WBC 12.97 10^3/uL (3.29-11.43) H 07/16/24 15:12 RBC 4.06 10^6/uL (3.85-5.65) 07/16/24 15:12 Hgb 11.80 g/dL (11.27-16.99) 07/16/24 15:12 Hct 36.0 % (36-47) 07/16/24 15:12 MCV 88.7 fl (85-98) 07/16/24 15:12 MCH 29.1 pg (27-33) 07/16/24 15:12 MCHC 32.8 g/dL (30-55) 07/16/24 15:12 RDW 13.1 % (12.1-15.1) 07/16/24 15:12 Plt Count 374 10^3/cmm (157-399) 07/16/24 15:12 MPV 10.5 fL (7.4-10.4) H 07/16/24 15:12 Neut % (Auto) 72.1 % 07/16/24 15:12 Lymph % (Auto) 18.1 % 07/16/24 15:12 Ritchie % (Auto) 7.1 % 07/16/24 15:12 Eos % (Auto) 1.7 % 07/16/24 15:12 Baso % (Auto) 0.5 % 07/16/24 15:12 Neut # (Auto) 9.35 10^3/uL (1.8-7.7) H 07/16/24 15:12 Lymph # (Auto) 2.4 10^3/uL (0.8-4.8) 07/16/24 15:12 Ritchie # (Auto) 0.9 10^3/uL (0.2-0.9) 07/16/24 15:12 Eos # (Auto) 0.2 10^3/uL (0.0-0.8) 07/16/24 15:12 Baso # (Auto) 0.1 10^3/uL (0.0-0.1) 07/16/24 15:12 Nucleated RBC % (auto) 0 % 07/16/24 15:12 Nucleated RBCs # 0.0 /100WBC 07/16/24 15:12 Sodium 136 mmol/L (136-145) 07/16/24 15:12 Potassium 3.5 mmol/L (3.5-5.1) 07/16/24 15:12 Chloride 94 mmol/L (98-107) L 07/16/24 15:12 Carbon Dioxide 24 mmol/L (22-29) 07/16/24 15:12 Anion Gap 21.5 (5-19) H 07/16/24 15:12 BUN 22 mg/dL (8-23) 07/16/24 15:12 Creatinine 0.8 mg/dL (0.5-0.9) 07/16/24 15:12 GFR Calculation 71.3 mL/min (90-130) L 07/16/24 15:12 Glucose 136 mg/dL (65-115) H 07/16/24 15:12 Calculated Osmolality 287 mOsm/kg (285-295) 07/16/24 15:12 Calcium 9.5 mg/dL (8.5-10.5) 07/16/24 15:12 Total Bilirubin 0.8 mg/dL (0.15-1.2) 07/16/24 15:12 AST 16 U/L (0-32) 07/16/24 15:12 ALT 20 U/L (0-33) 07/16/24 15:12 Alkaline Phosphatase 100 U/L (35-105) 07/16/24 15:12 Total Protein 7.2 g/dL (6.6-8.7) 07/16/24 15:12 Albumin 3.6 g/dL (3.5-5.2) 07/16/24 15:12 Globulin 3.6 g/dL (1.3-4.6) 07/16/24 15:12 Lipase 23 U/L (13-60) 07/16/24 15:12 Discharge Plan Discharge Patient Disposition: Home Clinical Impression: Constipation Qualifiers: Constipation type: drug induced constipation Qualified Code(s): K59.03 - Drug induced constipation Condition: Stable Prescriptions: New polyethylene glycol 3350 [Miralax] 17 gram/dose powder 4 g PO DAILY Qty: 119 0RF No Action folic acid 1 mg tablet 1 mg PO BEDTIME atorvastatin 20 mg tablet 20 mg PO QPM celecoxib [Celebrex] 200 mg capsule 200 mg PO DAILY Qty: 30 2RF oxybutynin chloride 5 mg tablet extended release 24hr 5 mg PO DAILY buspirone 10 mg tablet 10 mg PO TID Qty: 270 2RF sertraline [Zoloft] 25 mg tablet 25 mg PO BID Qty: 180 2RF Rx Instructions: Take one tablet in morning and 3 pm divalproex [Depakote] 500 mg tablet,delayed release (DR/EC) 500 mg PO BID Qty: 180 2RF cyclobenzaprine 10 mg Tablet 10 mg PO TID PRN (Reason: Muscle Spasm) metoprolol tartrate 50 mg tablet 75 mg PO BID enalapril-hydrochlorothiazide 10-25 mg tablet 1 tab PO BID Qty: 60 0RF potassium chloride 20 mEq tablet extended release 20 meq PO QAM clonazepam [Klonopin] 1 mg tablet 1 mg PO BID Rx Instructions: May take one tablet twice per day as needed for anxiety/panic attacks hydrocodone-acetaminophen 5-325 mg Tablet 1 - 2 tab PO Q4H PRN (Reason: Pain) 7 Days Qty: 40 0RF acetaminophen 500 mg Tablet 1,000 mg PO Q8H 15 Days Qty: 90 0RF aspirin 325 mg Tablet,Delayed Release (Dr/Ec) 325 mg PO DAILY 30 Days Qty: 30 0RF Discharge Orders: Discharge ED (Routine); Ordered 07/16/24 Ordered By: Nabil Parada Referrals: Shae Liu FNP [Primary Care Provider] - Patient Instructions: Constipation (ED), Opioid Safety, Pain Management Activity Restrictions/Additional Instructions: Continue aspirin for pain, take Thorp for breakthrough pain. Take concoction of medications prescribed to you here in the ED at home. Make sure that you are drinking plenty of fluids and getting plenty of fiber, continue taking blood pressure medication at home. Please follow-up closely with your primary care provider for reevaluation. Please return if pain worsens or if you develop any other new concerning symptoms. Print Language: Maori Sign Out Sign Out Data: Patient Sign Out occurred on 07/16/24 at 17:11. Patient's care was discussed, and care was transferred from EROS York to EROS Roy. Coding Level of Care Code ED Medical Device Engineer for Chg Fwd Documented by User: EROS Roy 07/16/24 20:29 HPI - Abdominal Pain General: Chief Complaint: Abdominal Pain Stated Complaint: abd pain, n,v Time Seen by Provider: 07/16/24 15:38 Related Data Home Medications ?Medication ?Instructions ?Recorded ?Confirmed atorvastatin 20 mg tablet 20 mg PO QPM 07/22/20 07/16/24 folic acid 1 mg tablet 1 mg PO BEDTIME 07/22/20 07/16/24 cyclobenzaprine 10 mg tablet 10 mg PO TID PRN Muscle Spasm 03/31/21 07/16/24 metoprolol tartrate 50 mg tablet 75 mg PO BID 07/28/22 07/16/24 oxybutynin chloride 5 mg 5 mg PO DAILY 07/28/22 07/16/24 tablet,extended release 24 hr potassium chloride 20 mEq 20 meq PO QAM 03/19/23 07/16/24 tablet,extended release clonazepam 1 mg tablet (Klonopin) 1 mg PO BID anxiety/panic attacks 07/11/24 07/16/24 Previous Rx's ?Medication ?Instructions ?Recorded enalapril 10 1 tab PO BID #60 tabs 07/19/22 mg-hydrochlorothiazide 25 mg tablet buspirone 10 mg tablet 10 mg PO TID #270 tabs 04/17/24 divalproex 500 mg tablet,delayed 500 mg PO BID #180 tabs 04/17/24 release (Depakote) sertraline 25 mg tablet (Zoloft) 25 mg PO BID #180 tabs 04/17/24 celecoxib 200 mg capsule (Celebrex) 200 mg PO DAILY pain #30 caps 07/02/24 acetaminophen 500 mg tablet 1,000 mg (2 x 500 mg) PO Q8H 15 07/13/24 days #90 tabs aspirin 325 mg tablet,delayed 325 mg PO DAILY 30 days #30 tabs 07/13/24 release hydrocodone 5 mg-acetaminophen 325 1 - 2 tab PO Q4H PRN Pain 7 days 07/13/24 mg tablet #40 tabs polyethylene glycol 3350 17 4 g PO DAILY #119 grams 07/16/24 gram/dose oral powder (Miralax) Allergies Allergy/AdvReac Type Severity Reaction Status Date / Time ciprofloxacin (From Cipro) Allergy Severe Unknown Verified 07/11/24 09:16 morphine Allergy Unknown Verified 07/11/24 09:16 oxycodone (From Percocet) Allergy ALGY-Swell Verified 07/11/24 09:16 Lip/Tongue/Throat REPLACED BY [facility] PFS: Medical History Psychiatric care Fall at home Right shoulder pain Right rotator cuff tendonitis Hand pain Nicotine dependence, cigarettes, uncomplicated Bipolar 1 disorder, manic, full remission Generalized anxiety disorder Social History Smoking and tobacco/nicotine status: current every day tobacco/nicotine user cigarettes Packs smoked per day: 0.5 Quit status (tobacco/nicotine): has tried quititng Course Vital Signs: Vital signs: Vital Signs Temperature 98.3 F 07/16/24 14:46 Pulse Rate 111 H 07/16/24 20:11 Respiratory Rate 18 07/16/24 20:11 Blood Pressure 188/109 07/16/24 20:11 Pulse Oximetry 100 07/16/24 20:11 Oxygen Delivery Me thod Room Air 07/16/24 20:11 MDM - Abdominal Pain Medical Decision Making This patient presented postoperatively, complaining of diffuse abdominal pain. Notes that she had been taking hydrocodone prescribed to her for the pain, has been infrequently taking the medication for constipation. Last bowel movement reported to be yesterday morning. Her lab work ultimately was unremarkable, CT did not demonstrate any bowel obstruction or other emergent findings. Her blood pressure has been notably elevated here, initially she was treated with Vasotec and metoprolol but this did not help. She was given hydralazine and this brought her blood pressure down, though on recheck she was stating pain was still there and I do think this is factor in terms of her elevation in blood pressure and heart rate. She was given fluids for this and a Fleet enema, after Fleet enema states that she does feel quite a bit better despite her being still mildly tachycardic and blood pressure still being elevated. Overall though is stating that she wants to go home and I did inform her we will treat with concoction of lactulose, mag citrate, and mineral oil to help clear her out and will ultimately give her return precautions. She verbalized understanding, and she is to closely follow-up with primary care and surgery as discussed. Lab Data 07/16/24 15:12 07/16/24 15:12 Labs/Radiology: Radiology Impressions Abdomen/Pelvis CT 07/16/24 16:12 IMPRESSION: 1. No evidence of acute abnormality in the abdomen or pelvis. 2. Mild wall thickening of the distal esophagus, which may reflect esophagitis. Laboratory Results WBC 12.97 10^3/uL (3.29-11.43) H 07/16/24 15:12 RBC 4.06 10^6/uL (3.85-5.65) 07/16/24 15:12 Hgb 11.80 g/dL (11.27-16.99) 07/16/24 15:12 Hct 36.0 % (36-47) 07/16/24 15:12 MCV 88.7 fl (85-98) 07/16/24 15:12 MCH 29.1 pg (27-33) 07/16/24 15:12 MCHC 32.8 g/dL (30-55) 07/16/24 15:12 RDW 13.1 % (12.1-15.1) 07/16/24 15:12 Plt Count 374 10^3/cmm (157-399) 07/16/24 15:12 MPV 10.5 fL (7.4-10.4) H 07/16/24 15:12 Neut % (Auto) 72.1 % 07/16/24 15:12 Lymph % (Auto) 18.1 % 07/16/24 15:12 Ritchie % (Auto) 7.1 % 07/16/24 15:12 Eos % (Auto) 1.7 % 07/16/24 15:12 Baso % (Auto) 0.5 % 07/16/24 15:12 Neut # (Auto) 9.35 10^3/uL (1.8-7.7) H 07/16/24 15:12 Lymph # (Auto) 2.4 10^3/uL (0.8-4.8) 07/16/24 15:12 Ritchie # (Auto) 0.9 10^3/uL (0.2-0.9) 07/16/24 15:12 Eos # (Auto) 0.2 10^3/uL (0.0-0.8) 07/16/24 15:12 Baso # (Auto) 0.1 10^3/uL (0.0-0.1) 07/16/24 15:12 Nucleated RBC % (auto) 0 % 07/16/24 15:12 Nucleated RBCs # 0.0 /100WBC 07/16/24 15:12 Sodium 136 mmol/L (136-145) 07/16/24 15:12 Potassium 3.5 mmol/L (3.5-5.1) 07/16/24 15:12 Chloride 94 mmol/L (98-107) L 07/16/24 15:12 Carbon Dioxide 24 mmol/L (22-29) 07/16/24 15:12 Anion Gap 21.5 (5-19) H 07/16/24 15:12 BUN 22 mg/dL (8-23) 07/16/24 15:12 Creatinine 0.8 mg/dL (0.5-0.9) 07/16/24 15:12 GFR Calculation 71.3 mL/min (90-130) L 07/16/24 15:12 Glucose 136 mg/dL (65-115) H 07/16/24 15:12 Calculated Osmolality 287 mOsm/kg (285-295) 07/16/24 15:12 Calcium 9.5 mg/dL (8.5-10.5) 07/16/24 15:12 Total Bilirubin 0.8 mg/dL (0.15-1.2) 07/16/24 15:12 AST 16 U/L (0-32) 07/16/24 15:12 ALT 20 U/L (0-33) 07/16/24 15:12 Alkaline Phosphatase 100 U/L (35-105) 07/16/24 15:12 Total Protein 7.2 g/dL (6.6-8.7) 07/16/24 15:12 Albumin 3.6 g/dL (3.5-5.2) 07/16/24 15:12 Globulin 3.6 g/dL (1.3-4.6) 07/16/24 15:12 Lipase 23 U/L (13-60) 07/16/24 15:12 All radiology interpretation(s) finalized by discharge Discharge Plan Discharge Patient Disposition: Home Clinical Impression: Constipation Qualifiers: Constipation type: drug induced constipation Qualified Code(s): K59.03 - Drug induced constipation Condition: Stable Prescriptions: New polyethylene glycol 3350 [Miralax] 17 gram/dose powder 4 g PO DAILY Qty: 119 0RF No Action folic acid 1 mg tablet 1 mg PO BEDTIME atorvastatin 20 mg tablet 20 mg PO QPM celecoxib [Celebrex] 200 mg capsule 200 mg PO DAILY Qty: 30 2RF oxybutynin chloride 5 mg tablet extended release 24hr 5 mg PO DAILY buspirone 10 mg tablet 10 mg PO TID Qty: 270 2RF sertraline [Zoloft] 25 mg tablet 25 mg PO BID Qty: 180 2RF Rx Instructions: Take one tablet in morning and 3 pm divalproex [Depakote] 500 mg tablet,delayed release (DR/EC) 500 mg PO BID Qty: 180 2RF cyclobenzaprine 10 mg Tablet 10 mg PO TID PRN (Reason: Muscle Spasm) metoprolol tartrate 50 mg tablet 75 mg PO BID enalapril-hydrochlorothiazide 10-25 mg tablet 1 tab PO BID Qty: 60 0RF potassium chloride 20 mEq tablet extended release 20 meq PO QAM clonazepam [Klonopin] 1 mg tablet 1 mg PO BID Rx Instructions: May take one tablet twice per day as needed for anxiety/panic attacks hydrocodone-acetaminophen 5-325 mg Tablet 1 - 2 tab PO Q4H PRN (Reason: Pain) 7 Days Qty: 40 0RF acetaminophen 500 mg Tablet 1,000 mg PO Q8H 15 Days Qty: 90 0RF aspirin 325 mg Tablet,Delayed Release (Dr/Ec) 325 mg PO DAILY 30 Days Qty: 30 0RF Discharge Orders: Discharge ED (Routine); Ordered 07/16/24 Ordered By: Nabil Parada Referrals: Shae Liu FNP [Primary Care Provider] - Patient Instructions: Constipation (ED), Opioid Safety, Pain Management Activity Restrictions/Additional Instructions: Continue aspirin for pain, take Thorp for breakthrough pain. Take concoction of medications prescribed to you here in the ED at home. Make sure that you are drinking plenty of fluids and getting plenty of fiber, continue taking blood pressure medication at home. Please follow-up closely with your primary care provider for reevaluation. Please return if pain worsens or if you develop any other new concerning symptoms. Print Language: Maori Sign Out Sign Out Data: Patient Sign Out occurred on 07/16/24 at 17:11. Patient's care was discussed, and care was transferred from EROS York to EROS Roy. Coding Level of Care Code ED Medical Device Engineer for Neil Li
[2024-07-16 16:01] LABS: Basophils # 0.1 10^3/uL (0.0-0.1); Basophils % 0.5 %; Eosinophils # 0.2 10^3/uL (0.0-0.8); Eosinophils % 1.7 %; Lymphocytes # 2.4 10^3/uL (0.8-4.8); Lymphocytes % 18.1 %; Mean Corpuscular HGB Conc 32.8 g/dL (30-55); Mean Corpuscular Hemoglobin 29.1 pg (27-33); Mean Corpuscular Volume 88.7 fl (85-98); Mean Platelet Volume 10.5 fL (7.4-10.4); Monocytes # 0.9 10^3/uL (0.2-0.9); Monocytes % 7.1 %; Neutrophils # 9.35 10^3/uL (1.8-7.7); Neutrophils % 72.1 %; Nucleated Red Blood Cells % 0 %; Platelet Count 374 10^3/cmm (157-399); Red Blood Count 4.06 10^6/uL (3.85-5.65); Red Cell Distribution Width 13.1 % (12.1-15.1); White Blood Count 12.97 10^3/uL (3.29-11.43)
--- NOTE | 2024-07-16 16:12 | CTR_ITS ---
PROCEDURE INFORMATION: Exam: CT Abdomen And Pelvis With Contrast Exam date and time: 07/16/2024 4:27 PM Age: 69 years old Clinical indication: Abdominal pain; Generalized; Prior surgery; Surgery date: 6+ months; Surgery type: Gb, hyst; Additional info: Abdominal pain, vomiting TECHNIQUE: Imaging protocol: Computed tomography of the abdomen and pelvis with contrast. Radiation optimization: All CT scans at this facility use at least one of these dose optimization techniques: automated exposure control; mA and/or kV adjustment per patient size (includes targeted exams where dose is matched to clinical indication); or iterative reconstruction. Contrast material: OMNIPAQUE 350; Contrast volume: 100 ml; Contrast route: INTRAVENOUS (IV); COMPARISON: CT abdomen pelvis w con* [id number] 10/28/2022 2:57 PM RADIATION DOSE METRICS: Total DLP (mGy-cm): 622.26 FINDINGS: Lungs: Subsegmental bibasilar atelectasis. The visualized lung bases are otherwise grossly clear. Diaphragm: No evidence of diaphragmatic defect. Liver: 15 mm right hepatic lobe hypodensity, unchanged since July 2022, possibly a hemangioma. Gallbladder and biliary ducts: Status post cholecystectomy. No evidence of intrahepatic or extrahepatic biliary dilatation. Pancreas: Unremarkable. Spleen: Unremarkable. Adrenal glands: Unremarkable. Kidneys and ureters: Right renal parenchymal scarring. No hydronephrosis or ureteral stone. Stomach and bowel: Few scattered colonic diverticula without evidence of acute diverticulitis. No evidence of bowel obstruction or perienteric inflammatory changes. Mild wall thickening of the distal esophagus. Appendix: Normal appendix. Intraperitoneal space: No evidence of free air or fluid collection. Vasculature: No aneurysmal dilatation or dissection of the abdominal aorta. The celiac trunk, SMA and GISELLE are grossly patent. No evidence of IVC thrombus. The portal vein, SMV and splenic veins are grossly patent. Lymph nodes: No adenopathy. Urinary bladder: Grossly unremarkable. Reproductive: Prior hysterectomy. Bones/joints: No evidence of acute fracture or aggressive osseous lesion. Soft tissues: No evidence of fluid collection or hematoma in the superficial soft tissues. Chondrocalcinosis/tendinosis of the hamstring tendons. CT/CT abdomen pelvis w con* [id number] IMPRESSION: 1. No evidence of acute abnormality in the abdomen or pelvis. 2. Mild wall thickening of the distal esophagus, which may reflect esophagitis.
[2024-07-16 16:19] LABS: Alanine Aminotransferase 20 U/L (0-33); Albumin Level 3.6 g/dL (3.5-5.2); Alkaline Phosphatase 100 U/L (35-105); Anion Gap 21.5 (5-19); Aspartate Amino Transferase 16 U/L (0-32); Blood Urea Nitrogen 22 mg/dL (8-23); Calcium 9.5 mg/dL (8.5-10.5); Carbon Dioxide 24 mmol/L (22-29); Chloride 94 mmol/L (98-107); Creatinine Clr Calc Pharmacy 66.1772; Globulin 3.6 g/dL (1.3-4.6); Glomerular Filtration Rate 71.3 mL/min (90-130); Glucose 136 mg/dL (65-115); Lipase 23 U/L (13-60); Osmolality Calculated 287 mOsm/kg (285-295); Potassium 3.5 mmol/L (3.5-5.1); Sodium 136 mmol/L (136-145); Total Bilirubin 0.8 mg/dL (0.15-1.2); Total Protein 7.2 g/dL (6.6-8.7)
[2024-07-16] MEDS: iohexol 350 mg/mL 500 mL Btl (per mL) IV (16:30)
[2024-07-16] MEDS: metoprolol tartrate 1 mg/1 mL SDV 5 mL 5 MG IVP (16:46)
[2024-07-16] MEDS: enalaprilat 2.5 mg/2 mL SDV 1.25 MG IVP (16:46)
[2024-07-16] MEDS: hyDRALAzine 20 mg/mL INJ 1 mL 10 MG IVP (17:30)
[2024-07-16] MEDS: sodium chloride 0.9% 1,000 ML 999 ML IV (19:36)
[2024-07-16] MEDS: Fleet Enema 133 mL Enema PR (19:42)
[2024-07-16] MEDS: lactulose oral liq 20 gm/30 mL UDC 30 GM PO (20:47)
[2024-07-16] MEDS: mineral oil 30 mL UDC PO (20:47)
[2024-07-16] MEDS: magnesium citrate Btl 296 mL PO (20:48)
--- NOTE | 2024-07-16 20:59 | PC.NURSE ---
PA AWARE OF PT BP, PT WAS TO TAKE HER BP MEDS WHEN SHE GOT HOME. PT GIVEN MEDS FOR HOME, AND WAS GIVEN INSTRUCTION ON HOW TO HELP.
== END 2024-07-16 20:59 | disposition home or self-care (01) ==
PROVIDERS: Physician Assistant; Emergency Provider Physician Assistant; PCP Nurse Practitioner Family
DX: K59.03 Drug induced constipation (principal); F17.210 Nicotine dependence, cigarettes, uncomplicated
CPT/HCPCS: 36415; 74177; 80053; 83690; 85025; 96374; 96375; 99285; J0360; J3490; J7030

== ENCOUNTER → 2024-07-25 10:59 | Outpatient (BNVA) | payer MEDICARE, SELFPAY | PROVIDERS: PCP Nurse Practitioner Family; Visit Provider Specialist | DX: Z98.890 Other specified postprocedural states (principal); Z96.652 Presence of left artificial knee joint | CPT/HCPCS: 73560; 73565 ==

== ENCOUNTER 2024-07-25 13:56 | Emergency (ER) | payer MEDICARE, SELFPAY ==
--- NOTE | 2024-07-25 13:57 | XR_ITS ---
WS: [id number] Portable AP upright chest, 07/25/2024 Clinical Data: sob Comparison: Portable chest, 11/10/2023 Findings: No nodules, masses or effusions are seen. The heart is normal. The pulmonary vascularity is not increased. No pneumonia or pneumothorax is seen. The aortic arch and descending thoracic aorta show mild tortuosity. XR/XR chest 1V portable [id number] Impression: Atherosclerosis.
[2024-07-25 14:09] VITALS: BP 94/70; PULSE 94; RESP 17; TEMP 36.8; O2SAT 100; BMI 28.7
--- NOTE | 2024-07-25 14:17 | ECG_ITS ---
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
[2024-07-25 14:50] LABS: Basophils # 0.1 10^3/uL (0.0-0.1); Basophils % 0.5 %; Eosinophils # 0.1 10^3/uL (0.0-0.8); Eosinophils % 0.8 %; Hematocrit 35.3 % (36-47); Lymphocytes # 4.5 10^3/uL (0.8-4.8); Lymphocytes % 35.8 %; Mean Corpuscular HGB Conc 33.7 g/dL (30-55); Mean Corpuscular Hemoglobin 29.2 pg (27-33); Mean Corpuscular Volume 86.7 fl (85-98); Mean Platelet Volume 8.9 fL (7.4-10.4); Monocytes # 0.5 10^3/uL (0.2-0.9); Monocytes % 4.3 %; Neutrophils # 7.23 10^3/uL (1.8-7.7); Neutrophils % 58.2 %; Nucleated Red Blood Cells % 0 %; Platelet Count 485 10^3/cmm (157-399); Red Blood Count 4.07 10^6/uL (3.85-5.65); Red Cell Distribution Width 13.9 % (12.1-15.1); White Blood Count 12.42 10^3/uL (3.29-11.43)
[2024-07-25 15:04] LABS: INR 0.95 (0.8-1.2)
[2024-07-25 15:19] LABS: Alanine Aminotransferase 13 U/L (0-33); Alkaline Phosphatase 97 U/L (35-105); Anion Gap 19.9 (5-19); Aspartate Amino Transferase 13 U/L (0-32); Blood Urea Nitrogen 28 mg/dL (8-23); Calcium 9.4 mg/dL (8.5-10.5); Carbon Dioxide 21 mmol/L (22-29); Chloride 99 mmol/L (98-107); Creatinine Clr Calc Pharmacy 57.4532; Glomerular Filtration Rate 62.3 mL/min (90-130); Glucose 146 mg/dL (65-115); NT Pro B Type Natriuretic Pept 1364 pg/mL (0-125); Osmolality Calculated 292 mOsm/kg (285-295); Sodium 137 mmol/L (136-145); Total Bilirubin 0.4 mg/dL (0.15-1.2)
[2024-07-25 15:21] LABS: Potassium 2.9 mmol/L (3.5-5.1)
[2024-07-25] MEDS: potassium chloride oral liq 20 mEq/15 mL UDC 60 MEQ PO (16:01)
--- NOTE | 2024-07-25 16:02 | ED_ITS ---
HPI - SOB/Dyspnea 2 General: Chief Complaint: Shortness of Breath/Dyspnea Stated Complaint: sob, low bp Time Seen by Provider: 07/25/24 15:44 History of Present Illness: HPI Narrative: 69-year-old female presents emergency ro om complaining of chest tightness and dyspnea on exertion. Began about 3 days ago she is 2 weeks postop right knee arthroplasty she is not on any anticoagulation at this time. She has no history of PE or DVT. She has had a nonproductive cough. No fever. There is no history of any coronary artery disease. She does smoke. Associated symptoms: Reports chest congestion, chest pain and palpitations; Deny abdominal pain, fever(s) or hemoptysis Related Data Home Medications ?Medication ?Instructions ?Recorded ?Confirmed atorvastatin 20 mg tablet 20 mg PO QPM 07/22/20 folic acid 1 mg tablet 1 mg PO BEDTIME 07/22/20 cyclobenzaprine 10 mg tablet 10 mg PO TID PRN Muscle S pasm 03/31/21 07/25/24 metoprolol tartrate 50 mg tablet 75 mg PO BID 07/28/22 07/25/24 potassium chloride 20 mEq 20 meq PO QAM 03/19/2307/25 tablet,extended release clonazepam 1 mg tablet (Klonopin) 1 mg PO BID anxiety/ panic attacks 07/11/24 07/25/24 hydrocodone 5 mg-acetaminophen 325 1 - 2 tab PO Q4H [place] N Pain 07/25/24 07/25/24 mg tablet pantoprazole 40 mg tablet,delayed 40 mg PO DAILY 07/2507/25/24 release Previous Rx's ?Medication ?Instructions ?Recorded enalapril 10 1 tab PO BID #60 tabs mg-hydrochlorothiazide 25 mg tablet buspirone 10 mg tablet 10 mg PO TID #270 tabs 04/17 divalproex 500 mg tablet,delayed 500 mg PO BID #180 ta bs 04/17/24 release (Depakote) sertraline 25 mg tablet (Zoloft) 25 mg PO BID #180 tab s 04/17/24 celecoxib 200 mg capsule (Celebrex) 200 mg PO DAILY pa in #30 caps 07/02/24 acetaminophen 500 mg tablet 1,000 mg (2 x 500 mg) PO Q 8H 15 07/13/24 days #90 tabs aspirin 325 mg tablet,delayed 325 mg PO DAILY 30 days #30 tabs 07/13/24 release polyethylene glycol 3350 17 4 g PO DAILY #119 grams gram/dose oral powder (Miralax) apixaban 5 mg (74 tabs) tablets in See Rx Instructions PO .COMPLEX 07/25/24 a dose pack (Eliquis DVT-PE Treat #74 ea 30D Start) Allergies Allergy/AdvReac Type Severity Reaction Status Date / Time ciprofloxacin (From Cipro) Allergy Severe Unknown Verified 07/25/24 14:13 morphine Allergy Unknown Verified 07/25/24 14:13 oxycodone (From Percocet) Allergy ALGY-Swell Verified 07/25/24 14:13 Lip/Tongue/Throat Review of Systems 2 Const: Denies: fever(s) or chills Card: Reports: chest pain and palpitations Resp: Reports: dyspnea, non-productive cough and chest congestion; Denies: hemoptysis GI: Denies: abdominal pain : Denies: dysuria, urinary frequency or urinary urgency Musc: Denies: neck pain or back pain Skin/Breast: Denies: rash PFSH ED 2 PFSH: Medical History Psychiatric care Fall at home Right shoulder pain Right rotator cuff tendonitis Hand pain Nicotine dependence, cigarettes, uncomplicated Bipolar 1 disorder, manic, full remission Generalized anxiety disorder Social History Smoking and tobacco/nicotine status: current every day tobacco/nicotine user cigarettes Packs smoked per day: 0.5 Quit status (tobacco/nicotine): has tried quititng Physical Exam 2 Const: GENERAL APPEARANCE: cooperative ORIENTATION/CONSCIOUSNESS: Yes awake, Yes oriented to person, Yes oriented to place and Yes oriented to time HENMT: COMMON NORMALS: normocephalic, atraumatic and hearing grossly normal bilaterally HEAD & SCALP: normocephalic and atraumatic Resp: COMMON NORMALS: normal respiratory effort, No retractions, No use of accessory muscles and clear to auscultation bilaterally AUSCULTATION: clear to auscultation bilaterally Cardio: COMMON NORMALS: regular rate, regular rhythm and No murmurs present (Cardio) RATE: regular rate RHYTHM: regular rhythm GI: COMMON NORMALS: Soft to palpation and No hepatosplenomegaly present A USCULTATION: Yes normoactive bowel sounds PALPATION: Yes Soft to palpation, No Tenderness to palpation present (GI), No Guarding due to palpation present (GI) and Yes No hepatosplenomegaly present Extremity: COMMON NORMALS: normal to inspection, capillary refill normal, no clubbing, cyanosis or edema, no calf tenderness and no pedal edema Neuro: SENSORIUM/ORIENTATION: Yes oriented to person, Yes oriented to place and Yes oriented to time Skin: COMMON NORMALS: no rashes or lesions noted GENERAL SKIN EXAM: no rashes or lesions noted Course 2 Vital Signs: Vital signs: Vital Signs Temperature 98.2 F 07/25/24 14:09 Pulse Rate 94 07/25/24 18:45 Respiratory Rate 16 07/25/24 18:45 Blood Pressure 110/80 07/25/24 18:45 Pulse Oximetry 92 07/25/24 18:45 Oxygen Delivery Me thod Room Air 07/25/24 14:09 MDM - SOB/Dyspnea Medical Decision Making Patient is PE on CT. She is otherwise stable at this time she has no right heart strain on the CT. Her oxygen sats are maintaining on room air. We did supplement her potassium. Her PE are interlobar and lower lobe branches at the most proximal levels per the radiology report. Will start on Eliquis discharge patient home return if has worsening shortness of breath or pain. Venous duplex did not show any DVT in the lower extremities Lab Data 07/25/24 14:42 07/25/24 14:42 Labs/Radiology: Radiology Impressions Chest X-Ray 07/25/24 13:57 Impression: Atherosclerosis. Venous Duplex 07/25/24 16:26 IMPRESSION: No evidence of deep vein thrombosis in the lower extremities bilaterally. Chest CTA 07/25/24 16:27 IMPRESSION: 1. Bilateral pulmonary emboli involving the right interlobar and left lower lobe branches as the most proximal levels. There is no right heart strain. 2. Hyperdense material within the stomach which may be due to ingested products, recommend clinical correlation and direct visualization as indicated to exclude bleeding. ADDENDUM: 07/25/24 [id number] THIS REPORT CONTAINS FINDINGS THAT MAY BE CRITICAL TO PATIENT CARE. The findings were verbally communicated via telephone conference with Dr. Frank at 5:45 PM SUSTAINABILITY PROJECT MANAGER on 07/25/2024. The findings were acknowledged and understood. Laboratory Results WBC 12.42 10^3/uL (3.29-11.43) H 07/25/24 14:42 RBC 4.07 10^6/uL (3.85-5.65) 07/25/24 14:42 Hgb 11.90 g/dL (11.27-16.99) 07/25/24 14:42 Hct 35.3 % (36-47) L 07/25/24 14:42 MCV 86.7 fl (85-98) 07/25/24 14:42 MCH 29.2 pg (27-33) 07/25/24 14:42 MCHC 33.7 g/dL (30-55) 07/25/24 14:42 RDW 13.9 % (12.1-15.1) 07/25/24 14:42 Plt Count 485 10^3/cmm (157-399) H 07/25/24 14:42 MPV 8.9 fL (7.4-10.4) 07/25/24 14:42 Neut % (Auto) 58.2 % 07/25/24 14:42 Lymph % (Auto) 35.8 % 07/25/24 14:42 [place] % (Auto) 4.3 % 07/25/24 14:42 Eos % (Auto) 0.8 % 07/25/24 14:42 Baso % (Auto) 0.5 % 07/25/24 14:42 Neut # (Auto) 7.23 10^3/uL (1.8-7.7) 07/25/24 14:42 Lymph # (Auto) 4.5 10^3/uL (0.8-4.8) 07/25/24 14:42 [place] # (Auto) 0.5 10^3/uL (0.2-0.9) 07/25/24 14:42 Eos # (Auto) 0.1 10^3/uL (0.0-0.8) 07/25/24 14:42 Baso # (Auto) 0.1 10^3/uL (0.0-0.1) 07/25/24 14:42 Nucleated RBC % (auto) 0 % 07/25/24 14:42 Nucleated RBCs # 0.0 /100WBC 07/25/24 14:42 PT 13.30 SECONDS (12.1-14.9) 07/25/24 14:42 INR 0.95 (0.8-1.2) 07/25/24 14:42 Sodium 137 mmol/L (136-145) 07/25/24 14:42 Potassium 2.9 mmol/L (3.5-5.1) L 07/25/24 14:42 Chloride 99 mmol/L (98-107) 07/25/24 14:42 Carbon Dioxide 21 mmol/L (22-29) L 07/25/24 14:42 Anion Gap 19.9 (5-19) H 07/25/24 14:42 BUN 28 mg/dL (8-23) H 07/25/24 14:42 Creatinine 0.9 mg/dL (0.5-0.9) 07/25/24 14:42 GFR Calculation 62.3 mL/min (90-130) L 07/25/24 14:42 Glucose 146 mg/dL (65-115) H 07/25/24 14:42 Calculated Osmolality 292 mOsm/kg (285-295) 07/25/24 14:42 Calcium 9.4 mg/dL (8.5-10.5) 07/25/24 14:42 Magnesium 1.6 mg/dL (1.7-2.3) L 07/25/24 14:42 Total Bilirubin 0.4 mg/dL (0.15-1.2) 07/25/24 14:42 AST 13 U/L (0-32) 07/25/24 14:42 ALT 13 U/L (0-33) 07/25/24 14:42 Alkaline Phosphatase 97 U/L (35-105) 07/25/24 14:42 Troponin T Baseline 25 ng/L (0-10) H 07/25/24 14:42 Troponin T 120 Minute 25.47 ng/L (0-10) H 07/25/24 16:28 Delta Troponin T 0.47 ABS# (0-10) 07/25/24 16:28 NT-Pro-B Natriuret Pep 1364 pg/mL (0-125) H 07/25/24 14:42 Total Protein 7.0 g/dL (6.6-8.7) 07/25/24 14:42 Albumin 4.0 g/dL (3.5-5.2) 07/25/24 14:42 Globulin 3.0 g/dL (1.3-4.6) 07/25/24 14:42 Influenza A (PCR) Negative (Negative) 07/25/24 16:02 Influenza Type B (PCR) Negative (Negative) 07/25/24 16:02 RSV (PCR) Negative (Negative) 07/25/24 16:02 SARS-CoV-2 (PCR) Negative (Negative) 07/25/24 16:02 All radiology interpretation(s) finalized by discharge Discharge Plan Discharge Patient Disposition: Home Clinical Impression: Pulmonary embolism, Hypokalemia Condition: Stable Prescriptions: Inder Bernstein DVT-PE Treat 30D Start 5 mg (74 tabs) tablets,dose pack See Rx Instructions .ROUTE .COMPLEX Qty: 74 0RF Rx Instructions: orally per package directions No Action folic acid 1 mg tablet 1 mg PO BEDTIME atorvastatin 20 mg tablet 20 mg PO QPM celecoxib [Celebrex] 200 mg capsule 200 mg PO DAILY Qty: 30 2RF buspirone 10 mg tablet 10 mg PO TID Qty: 270 2RF sertraline [Zoloft] 25 mg tablet 25 mg PO BID Qty: 180 2RF Rx Instructions: Take one tablet in morning and 3 pm divalproex [Depakote] 500 mg tablet,delayed release (DR/EC) 500 mg PO BID Qty: 180 2RF cyclobenzaprine 10 mg Tablet 10 mg PO TID PRN (Reason: Muscle Spasm) metoprolol tartrate 50 mg tablet 75 mg PO BID polyethylene glycol 3350 [Miralax] 17 gram/dose powder 4 g PO DAILY Qty: 119 0RF enalapril-hydrochlorothiazide 10-25 mg tablet 1 tab PO BID Qty: 60 0RF potassium chloride 20 mEq tablet extended release 20 meq PO QAM clonazepam [Klonopin] 1 mg tablet 1 mg PO BID Rx Instructions: May take one tablet twice per day as needed for anxiety/panic attacks acetaminophen 500 mg Tablet 1,000 mg PO Q8H 15 Days Qty: 90 0RF aspirin 325 mg Tablet,Delayed Release (Dr/Ec) 325 mg PO DAILY 30 Days Qty: 30 0RF hydrocodone-acetaminophen 5-325 mg tablet 1 - 2 tab PO Q4H PRN (Reason: Pain) pantoprazole 40 mg tablet,delayed release (DR/EC) 40 mg PO DAILY Discharge Orders: Discharge ED (Routine); Ordered 07/25/24 Ordered By: Pieter Frank Referrals: Shae Liu FNP [Primary Care Provider] - Discharge Diet: Usual diet Discharge Activity: Increase activity as tolerated Patient Instructions: Pulmonary Embolism (ED), Opioid Safety, Pain Management Activity Restrictions/Additional Instructions: Thank you for choosing [facility] for your healthcare needs today. It is very important that you follow up as instructed or that you return to the Emergency Department should you have concerns or if your condition changes or worsens in any way. Follow-up with your primary care doctor within the next few weeks. You need to continue the anticoagulant until physician specifically tells you that you can stop it. Print Language: Tajik Coding Level of Care Code ED Campus Police Officer for Neil Li
--- NOTE | 2024-07-25 16:05 | ECG_ITS ---
[facility] Test Date: 2024-07-25 Pat Name: Arcelia Crowe Department: Room: Gender: Female Office Assistance: : 1955 Requested By: Pieter Chanel Order Number: [id number] Reading MD: Measurements Intervals [place] Rate: 91 P: 87 MT: 148 QRS: 26 QRSD: 90 T: 74 QT: 389 QTc: 479 Interpretive Statements SINUS RHYTHM MODERATE ST DEPRESSION [0.05+ mV ST DEPRESSION] [id number]
[2024-07-25 16:19] LABS: Magnesium 1.6 mg/dL (1.7-2.3)
--- NOTE | 2024-07-25 16:26 | USR_ITS ---
PROCEDURE INFORMATION: Exam: US Duplex Lower Extremity Veins, Bilateral Exam date and time: 07/25/2024 4:42 PM Age: 69 years old Clinical indication: Pain; Leg, upper; Right; Prior surgery; Surgery date: <1 month; Surgery type: RT knee surgery; Additional info: Leg discomfort swallowing postop knee arthroplasty TECHNIQUE: Imaging protocol: Real-time duplex ultrasound of the bilateral extremities with 2-D downey scale, color Doppler flow and spectral waveform analysis including responses to compression and other maneuvers (when performed) with image documentation. Complete exam focused on the lower extremity veins. COMPARISON: CT knee RT CHIDI [id number] 07/03/2024 3:08 PM FINDINGS: Right deep veins: The right common femoral, femoral, proximal profunda femoral, popliteal, peroneal and posterior tibial veins are patent without thrombus. Normal Doppler waveforms. Normal compressibility and/or augmentation response. Left deep veins: The left common femoral, femoral, proximal profunda femoral, popliteal, peroneal and posterior tibial veins are patent without thrombus. Normal Doppler waveforms. Normal compressibility and/or augmentation response. Superficial veins: Greater saphenous veins are patent bilaterally without thrombus. Soft tissues: Unremarkable. US/[place] [id number] IMPRESSION: No evidence of deep vein thrombosis in the lower extremities bilaterally.
--- NOTE | 2024-07-25 16:27 | CTR_ITS ---
PROCEDURE INFORMATION: Exam: CTA Chest With Contrast Exam date and time: 07/25/2024 5:13 PM Age: 69 years old Clinical indication: Dyspnea; Additional info: Chest discomfort dyspnea on exertion postop TECHNIQUE: Imaging protocol: Computed tomographic angiography of the chest with contrast. Exam focused on the arteries. 3D rendering (Not supervised by radiologist): MIP and/or 3D reconstructed images were created by the technologist. Radiation optimization: All CT scans at this facility use at least one of these dose optimization techniques: automated exposure control; mA and/or kV adjustment per patient size (includes targeted exams where dose is matched to clinical indication); or iterative reconstruction. Contrast material: OMNIPAQUE 350; Contrast volume: 100 ml; Contrast route: INTRAVENOUS (IV); COMPARISON: CT angio chest PE protcl [id number] 07/20/2022 7:23 PM RADIATION DOSE METRICS: Total DLP (mGy-cm): 320.91 FINDINGS: Pulmonary arteries: There are pulmonary emboli noted within the right interlobar, right middle lobe and left lower lobe branches. Aorta: There is no aortic aneurysm. Lungs: No focal consolidation or other acute appearing pulmonary opacity. Pleural spaces: No pleural effusion or pneumothorax noted. Heart: There is no cardiomegaly. There is no pericardial effusion. Heart RV/LV ratio: The RV/LV ratio is 0.86. Lymph nodes: No pathologically enlarged lymph nodes (by short axis size criteria). Stomach: limited evaluation of the upper abdomen demonstrates the stomach to be distended and contains hyperdense material which may be due to ingested products, recommend clinical correlation and direct visualization as indicated to exclude bleeding. Bones/joints: No acute osseous abnormality. There is degenerative disease of the spine. Soft tissues: Unremarkable. Other findings: bibasal scarring. CT/CT angio chest PE protcl [id number] IMPRESSION: 1. Bilateral pulmonary emboli involving the right interlobar and left lower lobe branches as the most proximal levels. There is no right heart strain. 2. Hyperdense material within the stomach which may be due to ingested products, recommend clinical correlation and direct visualization as indicated to exclude bleeding.
[2024-07-25 16:33] LABS: Troponin(5th) Baseline 25 ng/L (0-10)
[2024-07-25 16:58] LABS: Troponin 5 2HR 25.47 ng/L (0-10); Troponin 5 2HR Delta 0.47 ABS# (0-10)
[2024-07-25 17:04] LABS: Influenza A NEGATIVE (Negative); Influenza B NEGATIVE (Negative); Respiratory Syncytial Virus Ce NEGATIVE (Negative); SARS-CoV-2 PCR NEGATIVE (Negative)
[2024-07-25] MEDS: iohexol 350 mg/mL 500 mL Btl (per mL) IV (17:15)
[2024-07-25 17:17] VITALS: BP 174/114; PULSE 95; O2SAT 99
--- NOTE | 2024-07-25 18:00 | ECG_ITS ---
[facility] Date: 2024-07-25 Pat Name: Arcelia Crowe Department: Room: Gender: Female Prism Measurer: : 1955 Requested By: Pieter Chanel Order Number: [id number] Reading MD: Measurements Intervals [place] Rate: 92 P: 79 WY: 144 QRS: -15 QRSD: 86 T: 70 QT: 379 QTc: 470 Interpretive Statements SINUS RHYTHM MODERATE ST DEPRESSION [0.05+ mV ST DEPRESSION] Compared to ECG 07/25/2024 16:09:55 No significant changes [id number] [id number]
[2024-07-25] MEDS: enoxaparin 80 mg/0.8 mL Syringe SUBCUT (18:31)
[2024-07-25 18:45] VITALS: BP 110/80; PULSE 94; RESP 16; O2SAT 92
== END 2024-07-25 18:46 | disposition home or self-care (01) ==
PROVIDERS: Emergency Medicine; Emergency Provider Family Medicine; PCP Nurse Practitioner Family
DX: Z98.890 Other specified postprocedural states (principal); Z96.652 Presence of left artificial knee joint; R07.89 Other chest pain; I26.99 Other pulmonary embolism without acute cor pulmonale; E87.6 Hypokalemia; Z79.82 Long term (current) use of aspirin; Z11.52 Encounter for screening for COVID-19; F17.210 Nicotine dependence, cigarettes, uncomplicated
CPT/HCPCS: 36415; 71045; 71275; 80053; 83735; 83880; 84484; 85025; 85610; 87637; 93005; 93970; 96372; 99024; 99285; J1650

== ENCOUNTER → 2024-10-24 11:16 | Outpatient (BNVA) | payer MEDICARE, SELFPAY | PROVIDERS: PCP Nurse Practitioner Family; Visit Provider Specialist | DX: Z96.651 Presence of right artificial knee joint (principal) | CPT/HCPCS: 73560; 73565; 99213 ==

== ENCOUNTER → 2024-11-02 10:37 | Outpatient (BNVA) | payer MEDICARE, SELFPAY | PROVIDERS: PCP Nurse Practitioner Family; Referring Provider Nurse Practitioner Psychiatric/Mental Health; Visit Provider Psychiatry & Neurology Neurology | DX: R55 Syncope and collapse (principal); G45.9 Transient cerebral ischemic attack, unspecified; M54.2 Cervicalgia; G89.29 Other chronic pain; R42 Dizziness and giddiness | CPT/HCPCS: 99203 ==

== ENCOUNTER 2024-11-13 10:56 | Outpatient (CLI) | payer MEDICARE, SELFPAY ==
--- NOTE | 2024-11-13 10:15 | MR_ITS ---
WS: [id number] MRI BRAIN WITH AND WITHOUT CONTRAST HISTORY: R55 - Syncope and collapse COMPARISON: None available. TECHNIQUE: Multiplanar imaging performed through the brain with MultiHance 16 ml's IV. No acute infarct. Confluent and patchy T2 and FLAIR signal hyperintensities in the supratentorial white matter surrounding the ventricles and extending into the subcortical white matter. Small lacunar infarct RIGHT caudate head. Mild small vessel disease within the owen. Small remote lacunar infarct in the LEFT owen. No large territory infarct. Mild hippocampal atrophy. No hemosiderin foci. Mild bilateral symmetric atrophy. Ventricles and extra-axial spaces are normal. Clivus and pituitary gland are normal. Visualized posterior fossa and brainstem are also normal. Degenerative changes at the odontoid process level. Cystic mass with peripheral enhancement centered in the LEFT pharyngeal recess measures 9 x 13 mm. There is peripheral enhancement on the postcontrast imaging. 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 Postcontrast images are negative for intracranial masses or vascular malformations. Dural venous sinuses are normal. Paranasal sinuses: Well aerated with no significant disease. Mastoid air cells: Normal. Calvarium and scalp: Normal. MR/MR head wo/w con [id number] IMPRESSION: 1. No acute infarcts or intracranial enhancing masses. 2. Advanced confluent and patchy T2 and FLAIR signal hyperintensities in the w anish matter. More advanced than typically noted in a patient of this age. This may be related to small vessel disease, hypertension, diabetes, less likely dem yelinating disease. 3. Small lacunar infarct LEFT owen and RIGHT caudate. 4. 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 Recommend evaluation by ENT and follow-up neck CT with IV co ntrast. Benign cyst can be identified at this location or cystic neoplasm. Mass is closely associated with the LEFT eustachian tube and the fossa of Rosenmull er. 5. RIGHT Tornwaldt cyst.
--- NOTE | 2024-11-13 11:00 | MR_ITS ---
WS: [email or web address] MRI CERVICAL SPINE with and without contrast HISTORY: M54.2 - Cervicalgia COMPARISON: 06/16/2022 Technique: Multiplanar, multisequence noncontrast imaging of the cervical spine. Postcontrast imaging MultiHance 16 mL. Slight increased cervical lordosis. Postoperative anterior cervical disc fusion at C5-6. No high-grade central stenosis. No inferior displacement of the cerebellar tonsils. Signal within the cervical cord is normal. Visualized posterior fossa is unremarkable. Craniocervical junction, C1 and C2 relationship, odontoid process and soft tissues are normal. Incidental note is made of a 7 mm Tornwaldt cyst. C2-C3: Mild disc bulging with a central disc protrusion. Mild facet arthritis with minimal bilateral foraminal narrowing. There is a small amount of marrow edema noted in the LEFT articular facet of C2. C3-C4: Mild disc bulging with moderate facet joint arthritis. Moderate RIGHT and mild LEFT foraminal stenosis. C4-C5: Mild RIGHT and no LEFT foraminal stenosis. No central stenosis. Mild facet arthritis. C5-C6: Bilateral foraminal stenosis due to osteophyte disease. Moderate bilateral facet arthritis. Similar to the prior study. C6-C7: Diffuse annular disc bulging with osteophytic ridging. Small central disc protrusion. Mild effacement of ventral CSF. Mild bilateral facet arthritis. Mild central and bilateral foraminal stenosis. C7-T1: Normal. Tiny central disc protrusions at T1-2, T2-3 and T4-5. No enhancement of the disc or vertebral bodies. No cord enhancement or mass. There is facet joint enhancement and fluid on the LEFT at C2-3. MR/MR cervical spine wo/w [id number] IMPRESSION: 1. Status post prior anterior cervical disc fusion at C5-6 which appears stabl e. 2. New acute enhancement and changes of acute synovitis involving the LEFT C2- 3 facet joint. Marrow edema in the LEFT articular facet of C2. 3. No enhancement within the cervical cord. 4. C3-4: Moderate RIGHT and mild LEFT foraminal stenosis and facet joint arthr opathy. 5. Moderate bilateral foraminal stenosis and facet joint arthropathy at C5-6. Stable. 6. C6-7: Mild central and bilateral foraminal stenosis and facet arthropathy.
[2024-11-13] MEDS: gadobenate dimeglumine 20 mL vial 16 ML IV (11:33)
== END 2024-11-13 10:57 | disposition home or self-care (01) ==
PROVIDERS: PCP Nurse Practitioner Family; Visit Provider Psychiatry & Neurology Neurology
DX: J39.2 Other diseases of pharynx (principal); M48.02 Spinal stenosis, cervical region; M47.812 Spondylosis without myelopathy or radiculopathy, cervical region; R55 Syncope and collapse; G45.9 Transient cerebral ischemic attack, unspecified; G89.29 Other chronic pain; M65.98 Unspecified synovitis and tenosynovitis, other site
CPT/HCPCS: 70553; 72156

== ENCOUNTER 2024-11-15 10:52 | Outpatient (CLI) | payer MEDICARE, SELFPAY ==
--- NOTE | 2024-11-15 11:00 | MR_ITS ---
WS: [email or web address] MRA CAROTID ARTERIES HISTORY: R55 - Syncope and collapse COMPARISON: None available. TECHNIQUE: MRA is performed with intravenous gadolinium. MIP and source images are reviewed. Right: Normal cervical carotid artery. No stenosis or occlusion at the bifurcation. Left: Normal cervical carotid artery. No stenosis or occlusion at the bifurcation. Subclavian Arteries: Patent with no stenosis. Vertebral Arteries: Normal. MR/MR angio neck w con* [id number] IMPRESSION: Normal MR angiogram carotid arteries.
[2024-11-15] MEDS: gadobenate dimeglumine 20 mL vial IV (11:39)
--- NOTE | 2024-11-15 11:45 | MR_ITS ---
WS: [email or web address] MRA ANGIOGRAPHY [place] OF [place] HISTORY: R55 - Syncope and collapse COMPARISON: Prior MRI brain 11/13/2024 TECHNIQUE: 3-D MR angiography is performed of the [place]. All images are reviewed including source images. Distal vertebral and basilar arteries are intact with no significant stenosis or plaque. Posterior cerebral arteries are normal course and caliber. Posterior communicating arteries are both patent. Intracranial portion of the internal carotid arteries are normal course and caliber. No significant atherosclerosis, stenosis or aneurysm identified. Middle and anterior cerebral arteries are both patent with no significant disease. Anterior communicating artery is also normal. MR/MR angio head wo con [id number] IMPRESSION: Normal MRA [place].
== END 2024-11-15 10:53 | disposition home or self-care (01) ==
LOC: RAD 10:53
PROVIDERS: PCP Nurse Practitioner Family; Visit Provider Psychiatry & Neurology Neurology
DX: R55 Syncope and collapse (principal); G45.9 Transient cerebral ischemic attack, unspecified
CPT/HCPCS: 70544; 70548

== ENCOUNTER → 2024-11-27 15:06 | Outpatient (BNVA) | payer MEDICARE, SELFPAY | PROVIDERS: PCP Nurse Practitioner Family; Visit Provider Orthopaedic Surgery | DX: M54.2 Cervicalgia (principal) | CPT/HCPCS: 72050; 99203 ==

== ENCOUNTER → 2024-12-05 11:00 | Outpatient (BNVA) | payer MEDICARE, SELFPAY | PROVIDERS: PCP Nurse Practitioner Family; Visit Provider Specialist | DX: Z96.651 Presence of right artificial knee joint (principal); M17.11 Unilateral primary osteoarthritis, right knee | CPT/HCPCS: 73560; 73565; 99213 ==

== ENCOUNTER 2024-12-11 11:32 | Outpatient (CLI) | payer MEDICARE, SELFPAY ==
--- NOTE | 2024-12-11 11:51 | CT_ITS ---
WS: [email or web address] CT NECK WITH CONTRAST HISTORY: DIZZINESS TECHNIQUE: Contiguous 2 mm axial images are performed through the neck with intravenous contrast. Sagittal and coronal reformats are also submitted. All CT scans at [facility] use at least one of these dose optimization techniques: automated exposure control; mA and/or kV adjustment per patient size (includes targeted exams where dose is matched to clinical indication); or iterative reconstruction. CONTRAST: CONTRAST: Omnipaque 350; 100 mL IV. DLP: 159.14 mGy.cm COMPARISON: Cervical spine CT 03/19/2023 Reidentified is the well-circumscribed, nonenhancing mass centered in the LEFT fossa of Rosenmuller measuring 7 x 8 mm. Mass was better visualized on the prior MRI than the CT. There is no enhancement. No associated calcifications. The parapharyngeal fat is normal. No mass of the tongue base or through the larynx. Normal midline structures. No adenopathy. Tornwaldt cyst is reidentified just to the RIGHT of midline in the nasopharynx. Better visualized on the MRI. Anterior cervical fusion at C5-6. No destructive bone lesions. Visualized portions of the skull base demonstrate no abnormalities. Orbits and globes are within normal limits. No soft tissue masses. Visualized paranasal sinuses and mastoid air cells are normal. Lung apices are clear. CT/CT neck w con* [id number] IMPRESSION: 1. Reidentified is a nonenhancing low-attenuation mass along the LEFT fossa of Rosenmull[place]. With no enhancement this is probably a benign cyst such as a muco us retention cyst or branchial cleft cyst. This can be further evaluated by dir ect visualization. 2. Reidentified is a very small Tornwaldt cyst which was better visualized als o by MRI. 3. No pathologically enlarged lymph nodes.
[2024-12-11] MEDS: iohexol 350 mg/mL 500 mL Btl (per mL) IV (12:30)
== END 2024-12-11 11:33 | disposition home or self-care (01) ==
LOC: RAD 11:34
PROVIDERS: PCP Nurse Practitioner Family; Visit Provider Specialist
DX: J39.2 Other diseases of pharynx (principal); R42 Dizziness and giddiness; H92.09 Otalgia, unspecified ear
CPT/HCPCS: 70491

== ENCOUNTER → 2024-12-27 06:50 | Outpatient (BNVA) | payer MEDICARE, SELFPAY | PROVIDERS: PCP Nurse Practitioner Family; Referring Provider Psychiatry & Neurology Neurology; Visit Provider Psychiatry & Neurology Neurology | DX: R56.9 Unspecified convulsions (principal) | CPT/HCPCS: 95813; 95819 ==

== ENCOUNTER 2024-12-28 09:28 | Outpatient (CLI) | payer MEDICARE, SELFPAY ==
--- NOTE | 2024-12-28 09:34 | US_ITS ---
WS: [email or web address] US pelv w/transvag [id number] HISTORY: PELVIC PAIN/BACK PAIN/PERINEAL PAIN/CARCINOMA IN SITU COMPARISON: None available. Status post hysterectomy. No midline mass. There is no mass at the region of the vaginal cuff. Urinary bladder is minimally distended. Transvaginal imaging demonstrates no mass. There is no ascites. Neither ovary identified.. No free fluid in the cul-de-sac. US/US pelv w/transvag [id number] IMPRESSION: Limited evaluation of the pelvic structures. Status post hysterectomy. No adnex al mass or free fluid.
== END 2024-12-28 09:29 | disposition home or self-care (01) ==
PROVIDERS: PCP Nurse Practitioner Family; Visit Provider Nurse Practitioner Family
DX: R10.2 Pelvic and perineal pain (principal); M54.9 Dorsalgia, unspecified; D07.1 Carcinoma in situ of vulva; Z68.29 Body mass index [BMI] 29.0-29.9, adult; Z90.710 Acquired absence of both cervix and uterus
CPT/HCPCS: 76830; 76856

== ENCOUNTER → 2025-02-20 14:43 | Outpatient (BNVA) | payer MEDICARE, SELFPAY | PROVIDERS: PCP Nurse Practitioner Family; Visit Provider Nurse Practitioner Psychiatric/Mental Health | DX: Z79.899 Other long term (current) drug therapy (principal) | CPT/HCPCS: 80053; 80164; 82306; 83036 ==

== ENCOUNTER → 2025-02-22 08:36 | Outpatient (BNVA) | payer MEDICARE, SELFPAY | PROVIDERS: PCP Nurse Practitioner Family; Visit Provider Nurse Practitioner | DX: M19.011 Primary osteoarthritis, right shoulder (principal); M19.012 Primary osteoarthritis, left shoulder | CPT/HCPCS: 20610; 73030; 99214; J1100; J2795; J3301; J9999 ==

== ENCOUNTER → 2025-03-25 11:16 | Outpatient (BNVA) | payer MEDICARE, SELFPAY | PROVIDERS: PCP Nurse Practitioner Family; Visit Provider Specialist | DX: Z47.89 Encounter for other orthopedic aftercare (principal); Z96.651 Presence of right artificial knee joint | CPT/HCPCS: 73560; 73565; 99214 ==

== ENCOUNTER → 2025-04-15 10:04 | Outpatient (BNVA) | payer MEDICARE, SELFPAY | PROVIDERS: PCP Nurse Practitioner Family; Visit Provider Specialist | DX: R51.9 Headache, unspecified (principal); R41.3 Other amnesia; F41.1 Generalized anxiety disorder; R26.9 Unspecified abnormalities of gait and mobility; R03.0 Elevated blood-pressure reading, without diagnosis of hypertension; R42 Dizziness and giddiness; G62.9 Polyneuropathy, unspecified; R55 Syncope and collapse; G37.9 Demyelinating disease of central nervous system, unspecified | CPT/HCPCS: 36415; 82542; 82607; 82746; 83520; 84439; 84443; 99215 ==